=== PATIENT | female | born 1985 | race Caucasian/White ===

== ENCOUNTER 2020-01-10 13:11 | Outpatient (RCR) | payer OTHER, SELFPAY | END 2020-01-16 23:59 | LOC: NS 13:11 | PROVIDERS: Visit Provider Student in an Organized Health Care Education/Training Program | DX: Z71.3 Dietary counseling and surveillance (principal); E66.9 Obesity, unspecified; Z68.30 Body mass index [BMI] 30.0-30.9, adult | CPT/HCPCS: 97802 ==

== ENCOUNTER 2020-01-25 13:56 | Outpatient (RCR) | payer OTHER, SELFPAY | END 2020-02-16 23:59 | LOC: NS 13:56 | PROVIDERS: Visit Provider Student in an Organized Health Care Education/Training Program | DX: Z71.3 Dietary counseling and surveillance (principal); E66.9 Obesity, unspecified; Z68.30 Body mass index [BMI] 30.0-30.9, adult | CPT/HCPCS: 97803 ==

== ENCOUNTER 2020-03-12 13:00 | Outpatient (RCR) | payer OTHER, SELFPAY | END 2020-03-18 23:59 | LOC: NS 13:00 | PROVIDERS: Visit Provider Student in an Organized Health Care Education/Training Program | DX: Z71.3 Dietary counseling and surveillance (principal); E66.9 Obesity, unspecified; Z68.30 Body mass index [BMI] 30.0-30.9, adult | CPT/HCPCS: 97803 ==

== ENCOUNTER 2020-04-11 13:00 | Outpatient (RCR) | payer OTHER, SELFPAY | END 2020-04-15 23:59 | LOC: NS 13:00 | PROVIDERS: Visit Provider Student in an Organized Health Care Education/Training Program | DX: Z71.3 Dietary counseling and surveillance (principal); E66.9 Obesity, unspecified; Z68.30 Body mass index [BMI] 30.0-30.9, adult | CPT/HCPCS: 97803 ==

== ENCOUNTER 2020-04-26 11:55 | Outpatient (RCR) | payer OTHER, SELFPAY | END 2020-05-16 23:59 | LOC: NS 11:55 | PROVIDERS: Visit Provider Student in an Organized Health Care Education/Training Program | DX: Z71.3 Dietary counseling and surveillance (principal); E66.9 Obesity, unspecified; Z68.30 Body mass index [BMI] 30.0-30.9, adult | CPT/HCPCS: 97803 ==

== ENCOUNTER 2020-06-05 11:00 | Outpatient (RCR) | payer OTHER, SELFPAY | END 2020-06-15 23:59 | LOC: NS 11:00 | PROVIDERS: Visit Provider Student in an Organized Health Care Education/Training Program | DX: Z71.3 Dietary counseling and surveillance (principal); E66.9 Obesity, unspecified; Z68.30 Body mass index [BMI] 30.0-30.9, adult | CPT/HCPCS: 97803 ==

== ENCOUNTER 2020-07-31 14:12 | Outpatient (RCR) | payer OTHER, SELFPAY | END 2020-07-31 23:59 | disposition home or self-care (01) | LOC: NS 14:12 | PROVIDERS: Visit Provider Student in an Organized Health Care Education/Training Program | DX: Z71.3 Dietary counseling and surveillance (principal); E66.9 Obesity, unspecified; Z68.30 Body mass index [BMI] 30.0-30.9, adult | CPT/HCPCS: 97803 ==

== ENCOUNTER 2024-08-10 23:02 | Emergency (ER) | payer MEDICAID, SELFPAY ==
[2024-08-10 23:02] VITALS: BP 135/67; PULSE 81; RESP 16; TEMP 36.5; O2SAT 100; BMI 31.5
[2024-08-10 23:16] LABS: Absolute Lymphocyte Count 4.49 X10^3/uL (0.83-4.51); Absolute Neutrophil Count 5.6 X10^3/uL (2.0-7.7); Basophil# 0.09 X10^3/uL; Basophil% 0.8 % (0-1); Eosinophil# 0.07 X10^3/uL; Eosinophils% 0.6 % (0-5); Hemoglobin 12.7 g/dL (12.0-15.0); Lymphocyte # 4.49 X10^3/ul (0.83-4.51); Lymphocyte % 40.2 % (19-41); Mean Corp Hgb Conc 33.4 g/dL (32-36); Mean Corpuscular Hgb 29.3 pg (27.0-32.0); Mean Corpuscular Volume 87.8 fL (81-99); Mean Platelet Vol. 8.8 fl (6.2-12.0); Monocyte# 0.94 X10^3/uL; Monocyte% 8.4 % (0-10); NRBC Flagged by Analyzer 0 % (0-5); Neutrophil # 5.55 X10^3/uL (2.7-7.7); Neutrophil % 49.7 % (47-70); Platelet Count 340 K/mm3 (150-450); RBC Distribution Width CV 14.2 % (11.6-14.6); RBC Distribution Width SD 45.5 fl (35.1-43.9); Red Blood Count 4.33 M/mm3 (4.2-5.4); White Blood Count 11.2 K/mm3 (4.4-11.0)
[2024-08-10 23:35] LABS: Internal QC Validated? YES +Cl - CLEAR BKGD; Pregnancy, Serum, hCG Quali. NEGATIVE Negative
[2024-08-10 23:35] LABS: Mucous, Urine 0 SEEN /hpf (<or=2+); Squamous Epithelial Cells - UA 0 SEEN /hpf (5-10); White Blood Cells 0 SEEN /hpf (0-5)
[2024-08-10 23:37] LABS: Color, Urine Yellow (Yellow); Glucose, Dipstick Normal (Normal); Ketone-Dipstick Negative (Negative); Leukocyte Esterase-Dipstick Negative /ul (Negative); Nitrite-Dipstick Negative (Negative); Occult Blood-Urine 250 /ul (Negative); Protein-Dipstick 30 mg/dl (Negative); Urine Bilirubin Dipstick Negative (Negative); Urine Clarity Clear (Clear); Urine Urobilinogen Normal (Normal)
[2024-08-10 23:38] LABS: ALB/GLOB Ratio 1.3 RATIO (0.9-2.4); AST(SGOT) 18 U/L (<=31); Alanine Aminotransfer ALT/SGPT 12 U/L (<=34); Albumin, Serum 3.8 g/dL (3.5-5.0); Alkaline Phosphatase 71 U/L (35-104); Anion Gap 14 (5-15); BUN 16 mg/dL (4-19); BUN/Creat Ratio 17.3 RATIO (10-20); Calcium,Total 8.9 mg/dL (7.6-11.0); Carbon Dioxide 20.9 mmol/L (21.0-32.0); Chloride 105 mmol/L (98-108); Creatinine, Serum 0.94 mg/dL (0.70-1.20); EST Glomerular Filtration Rate 79 (>60); Estimated Creatinine Clearance 89.17 ml/min (50-250); Glucose 89 mg/dL (70-99); Potassium 3.8 mmol/L (3.3-5.1); Protein, Total 6.9 g/dL (5.9-8.4); Sodium Level 140 mmol/L (133-145); Total Bilirubin 0.23 mg/dL (0.00-1.30)
[2024-08-10 23:44] LABS: Bacteria 1+ /hpf (None Seen); Red Blood Cells-Urine 25-50 SEEN /hpf (0-5)
--- NOTE | 2024-08-10 23:49 | CT_ITS ---
PROCEDURE: ABDOMEN/PELVIS WITHOUT CONT 08/10/2024 REASON FOR EXAM: RIGHT FLANK PAIN TECHNIQUE: ABDOMEN/PELVIS WITHOUT CONT Noncontrast technique limits evaluation of the abdominal and pelvic viscera. Coronal and Sagittal reconstruction series were provided. One or more dose reduction techniques were used (e.g., Automated exposure control, adjustment of the mA and/or kV according to patient size, use of iterative reconstruction technique). RADIATION DOSE SUMMARY: CTDlvol: 11.01 mGy DLP: 627 mGycm COMPARISON: None. FINDINGS: Mild diffuse thickening of the bladder suggestive of mild cystitis. The visualized lung bases are unremarkable. Normal unenhanced liver. Normal gallbladder and extrahepatic biliary system. Normal unenhanced spleen. Normal pancreas. Normal bilateral adrenal glands. Normal size of the right kidney. There is no right renal mass. There are no right renal calculi. There is no right hydronephrosis. Normal visualized right ureter. Normal size of the left kidney. There is no left renal mass. There are no left renal calculi. There is no left hydronephrosis. Normal visualized left ureter. Normal visualized stomach. Normal small intestine. Normal colon. The appendix is visualized and appears normal. There is no demonstrated peritoneal fluid. Normal abdominal aorta. Normal inferior vena cava. Normal retroperitoneum. There is no pelvic mass lesion or lymphadenopathy. There is no pelvic fluid. Normal abdominal wall. Normal osseous structures. CT/Abdomen/Pelvis without Cont IMPRESSION: Mild diffuse thickening of the bladder suggestive of mild cystitis. Reading Location[facility] [id number]
[2024-08-11] MEDS: 0.9% Normal Saline (1000mL) 1,000 ML 999 ML IV (00:12)
[2024-08-11 00:14] VITALS: BP 118/70; PULSE 66; RESP 16; O2SAT 100
--- OUTSIDE RECORDS SUMMARY | 2024-08-11 00:34 | XMS RPT_ITS | CCD ---
Author Organization [facility] Care Team Providers Care Laboratory Tech Name Role Phone Ketan Moffett DO Primary Care Provider [phone] Ketan Moffett DO Primary Care Provider Carrillo MATCH MARKER.Colleen ADEN Unavailable Evita MATCH MARKER.Narciso ADEN Unavailable ABEL CHOU Attending Unavailable KETAN MOFFETT Primary Care Unavailable KETAN MOFFETT Primary Care Unavailable KETAN MOFFETT Attending Unavailable KETAN MOFFETT Primary Care Unavailable KETNA MOFFETT Referring Unavailable KETAN MOFFETT Primary Care Unavailable KETAN MOFFETT Attending Unavailable KETAN MOFFETT Attending Unavailable KETAN MOFFETT Primary Care Unavailable ABEL CHOU Referring Unavailable KETAN MOFFETT Primary Care Unavailable KETAN MOFFETT Primary Care Unavailable ABEL CHOU Referring Unavailable KETAN MOFFETT Primary Care Unavailable SHARRON ROSARIO Attending Unavailable KETAN MOFFETT Referring Unavailable KETAN MOFFETT Primary Care Unavailable KETAN MOFFETT Attending Unavailable Medications Current Medications Medication Drug Class(es) Dates Sig (Normalized) Sig (Original) cholecalciferol 0.05 mg oral capsule (16 sources) Vitamin D Start: 10-23-2023 End: 05-05-2024 take 1 capsule by mouth once daily Cholecalciferol, Vitamin D3, 50 mcg (2,000 unit) cap Indications: Headache, worsening Take 1 capsule by mouth once daily. 90 capsule 1 05/05/2024 Active Ethinyl Estradiol / Levonorgestrel (20 sources) Progestin, Estrogen, Progestin-containi ng Intrauterine Device Start: 04-01-2024 take 1 tablet by mouth once daily L-Norgest and E Estradiol-E Estrad (SEASONIQUE) 0.15 mg-30 mcg (84)/10 mcg (7) Take 1 tablet by mouth once daily. 84 tablet 1 04/01/2024 Active Start: 12-03-2023 End: 03-31-2024 take 1 tablet by mouth once daily L-Norgest and E Estradiol-E Estrad (SEASONIQUE) 0.15 mg-30 mcg (84)/10 mcg (7) Take 1 tablet by mouth once daily. 84 tablet 12/03/2023 03/31/2024 Discontinued Start: 12-03-2023 take 1 tablet by lauro th once daily L-Norgest and E Estradiol-E Estrad (SEASONIQUE) 0.15 mg-30 mcg (84)/10 mcg (7) Take 1 tablet by mouth once daily. 84 tablet 12/03/2023 Active Start: 10-15-2023 End: 12-03-2023 take 1 tablet by mouth once daily L-Norgest and E Estradiol-E Estrad (SEASONIQUE) 0.15 mg-30 mcg (84)/10 mcg (7) Take 1 tablet by mouth once daily. 84 tablet 10/15/2023 12/03/2023 Discontinued Start: 10-15-2023 take 1 tablet by lauro th once daily L-Norgest and E Estradiol-E Estrad (SEASONIQUE) 0.15 mg-30 mcg (84)/10 mcg (7) Take 1 tablet by mouth once daily. 84 tablet 10/15/2023 Active Start: 10-08-2022 End: 10-15-2023 take 1 tablet by mouth once daily L-Norgest and E Estradiol-E Estrad (SEASONIQUE) 0.15 mg-30 mcg (84)/10 mcg (7) Take 1 tablet by mouth once daily. 84 tablet 3 10/08/2022 10/15/2023 Discontinued Start: 10-08-2022 take 1 tablet by lauro th once daily L-Norgest and E Estradiol-E Estrad (SEASONIQUE) 0.15 mg-30 mcg (84)/10 mcg (7) Take 1 tablet by mouth once daily. 84 tablet 3 10/08/2022 Active Start: 10-08-2021 End: 10-08-2022 take 1 tablet by mouth once daily L-Norgest and E Estradiol-E Estrad (SEASONIQUE) 0.15 mg-30 mcg (84)/10 mcg (7) Take 1 tablet by mouth once daily. 84 tablet 3 10/08/2021 10/08/2022 Discontinued Start: 10-08-2021 take 1 tablet by lauro th once daily L-Norgest and E Estradiol-E Estrad (SEASONIQUE) 0.15 mg-30 mcg (84)/10 mcg (7) Take 1 tablet by mouth once daily. 84 tablet 3 10/08/2021 Active Comment on above: Take 1 tablet by lauro th once daily. ferrous sulfate 140 mg extended release oral tablet (14 sources) Start: 10-08-19 End: 12-03-19 take 1 tablet by mouth once daily at mealtime ferrous sulfate (SLOW FE) 140 mg (45 mg iron) TbER Indications: Iron deficiency Take 1 tablet by mouth once daily. With a meal 30 tablet 11 10/07/2022 12/03/2023 Discontinued Comment on above: Take 1 tablet by lauro th once daily. With a meal levothyroxine sodium 0.05 mg oral tablet (20 sources) l-Thyroxine Start: 02-17-19 End: 03-09-19 take 1 tablet by mouth once daily for thyroid dysfunction levothyroxine (LEVOXYL) 50 mcg tablet Indications: Subclinical hypothyroidism Take 1 tablet by mouth once daily. Take on empty stomach. For Thyroid 90 tablet 3 03/09/2024 Active Start: 12-11-2022 take 1 tablet by lauro th once daily for thyroid dysfunction levothyroxine (LEVOXYL) 50 mcg tablet Indications: Subclinical hypothyroidism Take 1 tablet by mouth once daily. Take on empty stomach. For Thyroid 30 tablet 1 12/11/2022 Active Start: 10-24-2022 End: 12-11-2022 take 1 tablet by mouth once daily for thyroid dysfunction levothyroxine (LEVOXYL) 25 mcg tablet Indications: Subclinical hypothyroidism Take 1 tablet by mouth once daily. Take on empty stomach. For Thyroid 30 tablet 1 10/24/2022 12/11/2022 Discontinued Comment on above: Take 1 tablet by lauro th once daily. Take on empty stomach. For Thyroid magnesium gluconate 500 mg oral tablet (16 sources) Start: 4 End: 03-20-202 5 take 1 tablet by mouth once daily Magnesium Gluconate 27.5 mg magne- sium (500 mg) tab Indications: Headache, worsening Take 1 tablet by mouth once daily. 90 tablet 1 05/05/2024 Active proparacaine hydrochloride 5 mg/ml ophthalmic solution (2 sources) Local Anesthetic Start: End: proparacaine 0.5 % 1 Drop (ALCAINE) Start: 12-15-2023 End: 12-15-2023 1 Drop, BOTH EYES, DIRECT ED, Starting on Thu12/15/23 at 1000, Until Thu12/15/23 at 2159, Administer for pneumo tonometry, tonopen tonometry, or pachymetry. In the event of a proparacaine shortage, administer tetracaine 0.5% ophthalmic drops 1 drop in the left eye as directed for pneumo tonometry, tonopen tonometry, or pachymetry riboflavin 100 mg oral tablet (15 sources) Start: 10-23-2023 take 4 tablets by mouth once daily riboflavin, vitamin B2, (VITAMIN B2) 100 mg tab Indications: Headache, worsening Take 4 tablets by mouth once daily. 120 tablet 11 10/23/2023 Active rizatriptan 10 mg disintegrating oral tablet (2 sources) Serotonin-1b and Serotonin-1d Receptor Agonist Start: 07-04-2024 take 1 tablet by mouth every two hours as needed for headache rizatriptan (MAXALT-NANOTECHNOLOGY ENGINEERING TECHNOLOGIST) 10 mg disintegrating tablet Take 1 tablet by mouth as needed for migraine headache (see administration instructions). at onset of headache. May repeat after 2 hours. Do not exceed 30 mg per day. 12 tablet 3 07/04/2024 Active sertraline 50 mg oral tablet (20 sources) Serotonin Reuptake Inhibitor Start: 07-10-2023 End: 07-04-2024 take 1 tablet by mouth once daily at dinner sertraline (ZOLOFT) 50 mg tablet Indications: Situational depression , Situational anxiety Take 1 tablet by mouth daily with dinner. 90 tablet 1 07/04/2024 Active Start: 04-13-2023 End: 12-03-2023 take 1 tablet by mouth once daily sertraline (ZOLOFT) 100 mg tablet Take 1 tablet by mouth once daily. 90 tablet 1 04/13/2023 12/03/2023 Discontinued Start: 06-30-2022 End: 07-08-2023 take 1 tablet by mouth once daily at dinner sertraline (ZOLOFT) 50 mg tablet Indications: Situational depression , Situational anxiety Take 1 tablet by mouth daily with dinner. 90 tablet 1 12/31/2022 07/08/2023 Discontinued Start: 02-19-2022 take 1 tablet by lauro th once daily at dinner sertraline (ZOLOFT) 50 mg tablet Indications: Situational depression , Situational anxiety Take 1 tablet by mouth daily with dinner. 90 tablet 1 02/19/2022 Active Comment on above: Take 1 tablet by lauro th daily with dinner. Take 1 tablet by lauro th once daily. SUMAtriptan 20 mg/actuat nasal spray (2 sources) Serotonin-1b and Serotonin-1d Receptor Agonist Start: 07-04-2024 SUMAtriptan (IMITREX) 20 mg/actuation nasal spray Use 1 spray in the nose as needed for migraine headache (see administration instructions). May repeat dose after 2 hours if needed. Maximum daily dose is 40 mg per day. 1 each 2 07/04/2024 Active tropicamide 10 mg/ml ophthalmic solution (2 sources) Anticholinergic Start: 12-15-2023 End: 12-15-2023 tropicamide 1 % 1 Drop (MYDRIACYL) Start: 12-15-2023 End: 12-15-2023 1 Drop, BOTH EYES, DIRECT ED, Starting on Thu12/15/23 at 1000, Until Thu12/15/23 at 2159, Administer for dilation Completed/Discontinued Medications Medication Drug Class(es) Dates Sig (Normalized) Sig (Original) acetaminophen 500 mg oral tablet (4 sources) Start: 06-05-2021 End: 10-08-2021 take 2 tablets by mouth every six hours as needed acetaminophen (TYLENOL EXTRA STRENGTH) 500 mg tablet Take 2 tablets by mouth every 6 hours as needed for pain. 45 tablet 0 06/05/2021 10/08/2021 Discontinued (Other) Comment on above: Take 2 tablets by mo uth every 6 hours as needed for pain. amphetamine aspartate 2.5 mg / amphetamine sulfate 2.5 mg / dextroamphetamine saccharate 2.5 mg / dextroamphetamine sulfate 2.5 mg oral tablet (9 sources) Central Nervous System Stimulant Start: 07-22-2023 End: 10-23-2023 take 1 tablet by mouth twice daily dextroamphetamine- amphetamine (ADDERALL) 10 mg tablet Indications: Attention deficit disorder (ADD) without hyperactivity Take 1-2 tablets by mouth two times a day for 30 days. 60 tablet 07/22/2023 10/23/2023 Discontinued Start: 04-13-2023 End: 07-22-2023 take 1 capsule by mouth once daily in the morning amphetamine-dextroamphetamine XR (ADDERA LL XR) 20 mg capsule Indications: Impaired concentration Take 1 capsule by mouth once daily for 30 days. In the morning 30 capsule 0 04/13/2023 07/22/2023 Discontinued Start: 01-21-2023 End: 04-13-2023 take 1 capsule by mouth once daily in the morning as needed amphetamine-dextroamphetamine XR (ADDERA LL XR) 10 mg capsule Indications: Hypersomnolence , Fatigue, unspecified type , Impaired concentration Take 1 capsule by mouth once daily for 14 days. In the morning as needed for focus/concentration 14 capsule 0 01/21/2023 04/13/2023 Discontinued Comment on above: Take 1 capsule by [facility] once daily for 14 days. In the morning as needed for focus/concentration Take 1 capsule by [facility] once daily for 30 days. In the morning Ethinyl Estradiol / norgestimate (1 source) Progestin, Estrogen Start : 06-12 End: 02-05 take 1 tablet by mouth once daily Norgestimate-Ethinyl Estradiol 0.18/0.215/0.25 mg-35 mcg (28) Take 1 tablet by mouth once daily. 84 tablet 3 06/12/2020 02/05/2021 Discontinued Comment on above: Take 1 tablet by [facility] once daily. fluticasone propionate 0.05 mg/actuat metered dose nasal spray (12 sources) Corticosteroid Start : 06-20 End: 05-06 take 2 spray(s) by mouth once daily fluticasone (FLONASE) 50 mcg/actuation nasal spray Indications: URI with cough and congestion Use 2 Sprays in each nostril once daily. Rinse mouth after use. 1 Bottle 0 06/20/2018 05/06/2022 Discontinued Comment on above: Use 2 Sprays in each nostril once daily. Rinse mouth after use. ibuprofen 600 mg oral tablet (10 sources) Nonsteroidal Anti-inflammatory Drug Start : 06-05 End: 10-08 take 1 tablet by mouth every eight hours as needed ibuprofen (MOTRIN) 600 mg tablet Take 1 tablet by mouth every 8 hours as needed for pain. 45 tablet 0 06/05/2021 10/08/2022 Discontinued (Other) Comment on above: Take 1 tablet by lauro th every 8 hours as needed for pain. lisdexamfetamine dimesylate 30 mg oral capsule (20 sources) Central Nervous System Stimulant Start : 10-22 End: 10-02 take 1 capsule by mouth once daily in the morning lisdexamfetamine (VYVANSE) 30 mg capsule Indications: Attention deficit disorder (ADD) without hyperactivity Take 1 capsule by mouth once daily for 30 days. In the morning 30 capsule 07/04/2024 07/04/2024 Discontinued naproxen 375 mg oral tablet (8 sources) Nonsteroidal Anti-inflammatory Drug Start : 03-04 End: 10-08 take 1 tablet by mouth every eight hours as needed naproxen (NAPROSYN) 375 mg tablet Take 1 tablet by mouth three times daily as needed (pain). 60 tablet 0 03/04/2021 10/08/2021 Discontinued Comment on above: Take 1 tablet by lauro th three times daily as needed (pain). norethindrone acetate 5 mg oral tablet (8 sources) Start : 07-02 End: 10-08 take 1 tablet by mouth once daily norethindrone (AYGESTIN) 5 mg tablet Indications: Pelvic pain in female , Hematosalpinx Take 1 tablet by mouth once daily. 30 tablet 2 07/02/2021 10/08/2021 Discontinued (Other) Start: 03-28-2021 take 1 tablet by lauro th once daily norethindrone (AYGESTIN) 5 mg tablet Indications: Pelvic pain in female , Hematosalpinx Take 1 tablet by mouth once daily. 30 tablet 2 03/28/2021 Active Comment on above: Take 1 tablet by lauro th once daily. oxyCODONE hydrochloride 5 mg oral tablet (4 sources) Opioid Agonist Start: 2 End: 2 take 1 tablet by mouth every eight hours as needed for pain oxyCODONE IR (ROXICODONE) 5 mg immediate release tablet Indications: Post-op pain Take 1 tablet by mouth every 8 hours as needed for pain. 4 tablet 0 06/05/2021 10/08/2021 Discontinued (Other) Comment on above: Take 1 tablet by lauro th every 8 hours as needed for pain. sennosides, senior living 8.6 mg oral tablet (4 sources) Start: 2 End: 2 take 1 tablet by mouth twice daily senna (SENNA) 8.6 mg tab Take 1 tablet by mouth twice daily. 28 tablet 0 06/05/2021 10/08/2021 Discontinued (Other) Comment on above: Take 1 tablet by lauro th twice daily. Problems Active Problems Problem Classification Problem Date Documented Date Episodic/Chronic Abdominal pain (5 sources) Pain in female pelvis; Translations: [Pelvic and perineal pain] Episodic Adjustment disorders (20 sources) Reactive depression (situational); Translations: [Adjustment disorder with depressed mood] Onset: 07-22-2017 07-22-2017 Chronic Administrative/social admission (1 source) Education and/or schooling finding; Translations: [Problems related to education and literacy, unspecified] Episodic Anxiety disorders (20 sources) Anxiety; Translations: [Other specified anxiety disorders] Onset: 02-19-2022 02-19-2022 Chronic Contraceptive and procreative management (1 source) Oral contraception; Translations: [Encounter for surveillance of contraceptive pills] 10-08-2022 Episodic Diabetes mellitus without complication (1 source) Hyperglycemia; Translations: [Hyperglycemia, unspecified] 07-04-2024 Episodic Diseases of white blood cells (1 source) Lymphocytosis; Translations: [Lymphocytosis (symptomatic)] 10-07-2022 Chronic Disorders of lipid metabolism (20 sources) Mixed hyperlipidemia; Translations: [Mixed hyperlipidemia] Onset: 01-22-2018 01-22-2018 Chronic Disorders usually diagnosed in infancy, childhood, or adolescence (20 sources) Attention deficit hyperactivity disorder, predominantly inattentive type; Translations: [Other specified behavioral and emotional disorders with onset usually occurring in childhood and adolescence] Onset: 10-23-2023 07-22-2023 Chronic Headache; including migraine (20 sources) Migraine; Translations: [Migraine, unspecified, not intractable, without status migrainosus] Onset: 07-22-2017 07-22-2017 Chronic Headache; including migraine (20 sources) Headache; Translations: [Headache, worsening] Onset: 10-23-2023 10-23-2023 Episodic Headache; including migraine (2 sources) Headache; including migraine; Translations: [Headache, worsening] Onset: 10-23-2023 Immunizations and screening for infectious disease (7 sources) Requires vaccination; Translations: [Encounter for immunization] Episodic Inflammatory diseases of female pelvic organs (1 source) Hydrosalpinx; Translations: [Chronic salpingitis] 01-31-2021 Chronic Malaise and fatigue (20 sources) Fatigue; Translations: [Other fatigue] Onset: 10-07-2022 09-19-2022 Episodic Menopausal disorders (1 source) Perimenopausal state; Translations: [Menopausal and female climacteric states] 07-04-2024 Chronic Miscellaneous mental health disorders (16 sources) Chronic insomnia; Translations: [Psychophysiologic insomnia] Onset: 10-23-2023 10-23-2023 Chronic Nutritional deficiencies (20 sources) Vitamin D deficiency; Translations: [Vitamin D deficiency, unspecified] Onset: 04-21-2023 04-21-2023 Chronic Nutritional deficiencies (20 sources) Iron deficiency; Translations: [Iron deficiency] Onset: 10-07-2022 10-07-2022 Episodic Other female genital disorders (3 sources) Hematosalpinx; Translations: [Hematosalpinx] Episodic Other hereditary and degenerative nervous system conditions (1 source) Restless legs; Translations: [Restless legs syndrome] 09-19-2022 Chronic Other nervous system disorders (1 source) Disturbance of attention; Translations: [Attention and concentration deficit] Chronic Other nervous system disorders (20 sources) Attention and concentration deficit; Translations: [Attention or concentration deficit] Onset: 01-22-2023 01-22-2023 Chronic Other nutritional; endocrine; and metabolic disorders (14 sources) Obese class I; Translations: [Obesity, Class I, BMI 30-34.9] Onset: 12-03-2023 12-03-2023 Chronic Other screening for suspected conditions (not mental disorders or infectious disease) (20 sources) Evaluation finding; Translations: [Encounter for test, result negative] Onset: 10-07-2022 Episodic Residual codes; unclassified (20 sources) Hypersomnia; Translations: [Hypersomnia, unspecified] Onset: 01-22-2023 01-21-2023 Chronic Residual codes; unclassified (2 sources) Postoperative state; Translations: [Other specified postprocedural states] Episodic Residual codes; unclassified (1 source) Difficulty sleeping ; Translations: [Sleep disorder, unspecified] 09-19-2022 Episodic Thyroid disorders (20 sources) Subclinical hypothyroidism; Translations: [Other specified hypothyroidism] Onset: 10-17-2022 10-24-2022 Chronic Past or Other Problems Problem Classification Problem Date Documented Da te Episodic/Chronic Conditions associated with dizziness or vertigo (20 sources) Lightheadedness; Translations: [Dizziness and giddiness] Onset: 07-22-2017 07-22-2017 Episodic Other ear and sense organ disorders (20 sources) Tinnitus of right ear; Translations: [Tinnitus, right ear] Onset: 01-22-2018 01-22-2018 Episodic Other lower respiratory disease (20 sources) Snoring; Translations: [Snoring] Onset: 01-22-2023 01-22-2023 Episodic Other skin disorders (20 sources) Xeroderma; Translations: [Xerosis cutis] Onset: 10-07-2022 10-07-2022 Episodic Other skin disorders (20 sources) Trachyonychia; Translations: [Nail dystrophy] Onset: 10-07-2022 10-07-2022 Episodic Residual codes; unclassified (20 sources) Intolerant of cold; Translations: [Other general symptoms and signs] Onset: 10-07-2022 10-07-2022 Episodic Residual codes; unclassified (20 sources) Sleep disorder; Translations: [Sleep disorder, unspecified] Onset: 10-07-2022 10-07-2022 Episodic Results Test Name Value Interpretation Reference Range Facility [facility] 07-04-2024 CNOV Office Visit (FAMPWS ) ONEYDA MAO ([id number]) 1985 F Date Time Provider Department 07/04/24 3:00 PM KETAN MOFFETT During your visit today, we recorded the following information about you: Temperature Pulse Respiration Blood pressure 98 degrees 80/minute 12/minute 104/70 Weight Last Period 84.8 kg 04/11/24 Ketan Moffett, DO 07/04/2024 5:20 PM Signed CC: Oneyda Mao is a 39 year old female who presents to the office for follow up HPI: Headaches, 2-3 days a week, up to 6-7/10 on pain scale. These are improved but not resolved. She doesn't have a known history of vision deficits but she is concerned about this as a potential trigger to he headache symptoms. She thinks there are hormonal triggers to her symptoms- unsure what medication she can take to help treat the migraine ADD. 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 Taking zoloft as prescribed. Subclinical hypothyroidism PAST MEDICAL HISTORY Diagnosis Date Genital warts Hypercholesteremia 03/19/2015 LGSIL (low grade squamous intraepithelial dysplasia) 02/17/2008 Subclinical hypothyroidism 10/2022 PAST SURGICAL HISTORY Procedure Laterality Date PAST SURGICAL HISTORY OF 2007? laser treatment to genital warts PAST SURGICAL HISTORY OF 06/05/2021 laparoscopic excision fo endometriosis, right ureterlysis VAGINOSCOPY 02/17/2008 Current Outpatient Medications Medication Sig sertraline (ZOLOFT) 50 mg tablet Take 1 tablet by mouth daily with dinner. lisdexamfetamine (VYVANSE) 30 mg capsule Take 1 capsule by mouth once daily for 30 days. [START ON 09/02/2024] lisdexamfetamine (VYVANSE) 30 mg capsule Take 1 capsule by mouth once daily for 30 days. Patient should start on September 02, 2024. rizatriptan (MAXALT-NANOTECHNOLOGY ENGINEERING TECHNOLOGIST) 10 mg disintegrating tablet Take 1 tablet by mouth as needed for migraine headache (see administration instructions). at onset of headache. May repeat after 2 hours. Do not exceed 30 mg per day. SUMAtriptan (IMITREX) 20 mg/actuation nasal spray Use 1 spray in the nose as needed for migraine headache (see administration instructions). May repeat dose after 2 hours if needed. Maximum daily dose is 40 mg per day. [START ON 08/04/2024] lisdexamfetamine (VYVANSE) 30 mg capsule Take 1 capsule by mouth once daily for 30 days. In the morning Patient should start on August 04, 2024. Magnesium Gluconate 27.5 mg magne- sium (500 mg) tab Take 1 tablet by mouth once daily. Cholecalciferol, Vitamin D3, 50 mcg (2,000 unit) cap Take 1 capsule by mouth once daily. L-Norgest and E Estradiol-E Estrad (SEASONIQUE) 0.15 mg-30 mcg (84)/10 mcg (7) Take 1 tablet by mouth once daily. levothyroxine (LEVOXYL) 50 mcg tablet Take 1 tablet by mouth once daily. Take on empty stomach. For Thyroid riboflavin, vitamin B2, (VITAMIN B2) 100 mg tab Take 4 tablets by mouth once daily. No current facility-administered medications for this visit. ALLERGIES No Known Allergies Social History Tobacco Use Smoking status: Never Smokeless tobacco: Never Vaping Use Vaping status: Never Used Substance Use Topics Alcohol use: Yes Comment: seldom Drug use: Never ROS: See HPI PE: BP 104/70 Pulse 80 Temp (Src) 98 (Left Tympanic) Resp 12 Wt 187 lb (84.8kg) LMP 04/11/2024 Gen: AANDOX3, NAD, non-toxic appearing HEENT: PERRLA, EOMs intact b/l, nares without drainage, pharynx without erythema, exudate, lesions, or drainage. Uvula midline. Neck: No LAD, no thyromegaly, no meningismus. CV: RRR, no murmur Lungs: CTA b/l, no wheezing Skin: No rashes, lesions, or wounds on exposed skin. Non focal neurologic examination No edema, normal pulses PDMP website checked and validated. All prescriptions have been APPROPRIATELY filled. No suspicious activity was identified. 07/04/2024 by Ketan Moffett DO ASSESSMENT/PLAN: 1. 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 Situational depression - ICD9: 309.0, ICD10: F43.21 rx refilled Symptoms are stable and well controlled. - SERTRALINE 50 MG TABLET 3. Situational anxiety - ICD9: 300.09, ICD10: F41.8 rx refilled Symptoms are stable and well controlled. - SERTRALINE 50 MG TABLET 4. Attention deficit disorder (ADD) without hyperactivity - ICD9: 314.00, ICD10: F98.8 Stable, rx refilled. - LISDEXAMFETAMINE 30 MG CAPSULE - LISDEXAMFETAMINE 30 MG CAPSULE - LISDEXAMFETAMINE 30 MG CAPSULE 5. Other migraine without status migrainosus, not intractable - ICD9: 346.80, ICD10: G43.809 Add on prn triptan for migraine headaches Co (more content not included)... Normal [facility] [employer] LTon 05-10 [employer] [facility] * * *Final Report* * * DATE OF EXAM: May 10 2024 8:49AM [id number] - [employer] [facility] / PROCEDURE REASON: Abnormal mammogram * * * * Physician Interpretation * * * * [facility] [place] [address] #[id number] - [employer] [facility] HISTORY: 39 year-old patient seen for diagnostic evaluation of the finding(s) described on prior mammogram in the left breast. Patient states no personal history of breast cancer. COMPARISON STUDIES: The present examination has been compared to a prior imaging study dated 03/17/2024 (mammogram). ULTRASOUND TECHNIQUE: Targeted ultrasound of the indicated area was performed. Ott scale images were saved. ULTRASOUND FINDINGS: There is an oval parallel lesion with circumscribed margins measuring 1.0 x 1.0 x 0.3 cm cm in the left breast at 1 o'clock, 5 cm from the nipple. Internal echotexture is hypoechoic. Color flow imaging demonstrates vascularity is not present. This correlates with myelography findings. Differential considerations include fibroadenoma, commentated cyst, and fibrocystic change. IMPRESSION: The 1 cm oval parallel lesion in the left breast at 1 o'clock, 5 cm from the nipple is probably benign. Follow-up with diagnostic mammogram and ultrasound is recommended in 6 months. BI-RADS Category 3: Probably Benign Interpreting Radiologist: Esequiel Villeda M.D. Electronically signed on: 05/10/2024 Plant Taxonomy Teacher: KHADAR Transcribe Date/Time: May 10 2024 8:34A Dictated by : ESEQUIEL VILLEDA MD This examination was interpreted and the report reviewed and electronically signed by: ESEQUIEL VILLEDA MD on May 10 2024 8:57AM EST [id number] Normal [facility] US Breast - left limitedon 0 05-10-2024 IMPRESSION: The 1 cm oval parallel lesion in the left breast at 1 o'clock, 5 cm from the nipple is probably benign. Follow-up with diagnostic mammogram and ultrasound is recommended in 6 months. BI-RADS Category 3: Probably Benign Interpreting Radiologist: Esequiel Villeda M.D. Electronically signed on: 05/10/2024 Plant Taxonomy Teacher: KHADAR Transcribe Date/Time: May 10 2024 8:34A Dictated by : ESEQUIEL VILLEDA MD This examination was interpreted and the report reviewed and electronically signed by: ESEQUIEL VILLEDA MD on May 10 2024 8:57AM EST DIVISION OF RADIOLOGY * * *Final Report* * * DATE OF EXAM: May 10 2024 8:49AM [facility] [[email or web address]] 0593 - [facility] [employer] BREAST LTD LT / PROCEDURE REASON: Abnormal mammogram * * * * Physician Interpretation * * * * [facility] [place] [address] #[id number] - [facility] [employer] BREAST Intermolecular LT HISTORY: 39 year-old patient seen for diagnostic evaluation of the finding(s) described on prior mammogram in the left breast. Patient states no personal history of breast cancer. COMPARISON STUDIES: The present examination has been compared to a prior imaging study dated 03/17/2024 (mammogram). ULTRASOUND TECHNIQUE: Targeted ultrasound of the indicated area was performed. Ott scale images were saved. ULTRASOUND FINDINGS: There is an oval parallel lesion with circumscribed margins measuring 1.0 x 1.0 x 0.3 cm cm in the left breast at 1 o'clock, 5 cm from the nipple. Internal echotexture is hypoechoic. Color flow imaging demonstrates vascularity is not present. This correlates with myelography findings. Differential considerations include fibroadenoma, commentated cyst, and fibrocystic change. DIVISION OF RADIOLOGY Provider, [facility]24 * * *Final Report* * * DATE OF EXAM: May 10 2024 8:49AM [facility] [[email or web address]] 0593 - [facility] [employer] BREAST Intermolecular LT / PROCEDURE REASON: Abnormal mammogram * * * * Physician Interpretation * * * * [place] [address] #[id number] - [employer] BREAST Intermolecular LT HISTORY: 39 year-old patient seen for diagnostic evaluation of the finding(s) described on prior mammogram in the left breast. Patient states no personal history of breast cancer. COMPARISON STUDIES: The present examination has been compared to a prior imaging study dated 03/17/2024 (mammogram). ULTRASOUND TECHNIQUE: Targeted ultrasound of the indicated area was performed. Ott scale images were saved. ULTRASOUND FINDINGS: There is an oval parallel lesion with circumscribed margins measuring 1.0 x 1.0 x 0.3 cm cm in the left breast at 1 o'clock, 5 cm from the nipple. Internal echotexture is hypoechoic. Color flow imaging demonstrates vascularity is not present. This correlates with myelography findings. Differential considerations include fibroadenoma, commentated cyst, and fibrocystic change. IMPRESSION IMPRESSION: The 1 cm oval parallel lesion in the left breast at 1 o'clock, 5 cm from the nipple is probably benign. Follow-up with diagnostic mammogram and ultrasound is recommended in 6 months. BI-RADS Category 3: Probably Benign Interpreting Radiologist: Esequiel Villeda M.D. Electronically signed on: 05/10/2024 Plant Taxonomy Teacher: KHADAR Transcribe Date/Time: May 10 2024 8:34A Dictated by : ESEQUIEL VILLEDA MD This examination was interpreted and the report reviewed and electronically signed by: ESEQUIEL VILLEDA MD on May 10 2024 8:57AM [facility] Radiology Study observation (narrative) [facility] US Breast - left limitedOrde red By: Ccf Provider on 05-10-2024 [facility] DBT Breast - bilateral scree mosesgon 03-17-2024 * * *Final Report* * * DATE OF EXAM: Mar 17 2024 9:35AM W 0582 - [facility] S[facility]ENING W KEREN / PROCEDURE REASON: Encounter for screening mammogram for breast cancer * * * * Physician Interpretation * * * * RESULT: [facility] [address] [id number] #[id number] - [facility] SCREENING W KEREN HISTORY: 39 year-old patient seen for screening and is asymptomatic in both breasts. Patient states no personal history of breast cancer. Patient states no personal history of other cancers. COMPARISON STUDIES: This is a baseline study. MAMMOGRAM TECHNIQUE: The study was acquired using full field digital technology and interpreted from soft copy. Digital Breast Tomosynthesis (DBT) images were obtained and used to assist in the interpretation of this examination. MAMMOGRAM FINDINGS: There are scattered areas of fibroglandular density. There is a focal asymmetry in the upper outer quadrant of the left breast, middle depth. No additional significant masses, calcifications or other findings are seen in either breast. DIVISION OF RADIOLOGY Provider, [facility] - 03/17/2024 * * *Final Report* * * DATE OF EXAM: Mar 17 2024 9:35AM W 0582 - [facility] SCREENING W KEREN / PROCEDURE REASON: Encounter for screening mammogram for breast cancer * * * * Physician Interpretation * * * * RESULT: [facility] [address] [place] [address] #[id number] - [facility] SCREENING W KEREN HISTORY: 39 year-old patient seen for screening and is asymptomatic in both breasts. Patient states no personal history of breast cancer. Patient states no personal history of other cancers. COMPARISON STUDIES: This is a baseline study. MAMMOGRAM TECHNIQUE: The study was acquired using full field digital technology and interpreted from soft copy. Digital Breast Tomosynthesis (DBT) images were obtained and used to assist in the interpretation of this examination. MAMMOGRAM FINDINGS: There are scattered areas of fibroglandular density. There is a focal asymmetry in the upper outer quadrant of the left breast, middle depth. No additional significant masses, calcifications or other findings are seen in either breast. IMPRESSION IMPRESSION: The focal asymmetry in the left breast requires additional evaluation. Diagnostic ultrasound is recommended. BI-RADS Category 0: Incomplete: Needs Additional Imaging Evaluation RISK: Based on the Tyrer-Cuzick (TC) risk assessment model, this patient has a 8.9% lifetime risk of developing breast cancer, meaning they are at average risk for developing breast cancer. However, this is only an estimate based on available history provided on the patient's questionnaire. We encourage all patients to talk with their providers about these results, further recommendations for managing breast health, and appropriate supplemental screening options if the patient has dense breast tissue. Interpreting Radiologist: Avelino Munroe M.D. Electronically signed on: 03/17/2024 Plant Taxonomy Teacher: KHADAR Transcribe Date/Time: Mar 17 2024 9:13A Dictated by: AVELINO MUNROE MD This examination was interpreted and the report reviewed and electronically signed by: AVELINO MUNROE MD on Mar 17 2024 12:09PM EST [facility] Radiology Study observation (narrative) [facility] DBT Breast - bilateral scree ningOrdered By: Cccody Provider on 03-17-2024 [facility]ATT SCREENING W TOMOon 03-17 [facility]ING W KEREN * * *Final Report* * * DATE OF EXAM: Mar 17 2024 9:35AM [facility] 0582 - [facility] SCREENING W KEREN / PROCEDURE REASON: Encounter for screening mammogram for breast cancer * * * * Physician Interpretation * * * * RESULT: [facility] [address] [place] [address] #[id number] - [facility] SCREENING W KEREN HISTORY: 39 year-old patient seen for screening and is asymptomatic in both breasts. Patient states no personal history of breast cancer. Patient states no personal history of other cancers. COMPARISON STUDIES: This is a baseline study. MAMMOGRAM TECHNIQUE: The study was acquired using full field digital technology and interpreted from soft copy. Digital Breast Tomosynthesis (DBT) images were obtained and used to assist in the interpretation of this examination. MAMMOGRAM FINDINGS: There are scattered areas of fibroglandular density. There is a focal asymmetry in the upper outer quadrant of the left breast, middle depth. No additional significant masses, calcifications or other findings are seen in either breast. IMPRESSION: The focal asymmetry in the left breast requires additional evaluation. Diagnostic ultrasound is recommended. BI-RADS Category 0: Incomplete: Needs Additional Imaging Evaluation RISK: Based on the Tyrer-Cuzick (TC) risk assessment model, this patient has a 8.9% lifetime risk of developing breast cancer, meaning they are at average risk for developing breast cancer. However, this is only an estimate based on available history provided on the patient's questionnaire. We encourage all patients to talk with their providers about these results, further recommendations for managing breast health, and appropriate supplemental screening options if the patient has dense breast tissue. Interpreting Radiologist: Avelino Munroe M.D. Electronically signed on: 03/17/2024 Plant Taxonomy Teacher: KHADAR Transcribe Date/Time: Mar 17 2024 9:13A Dictated by: AVELINO MUNROE MD This examination was interpreted and the report reviewed and electronically signed by: AVELINO MUNROE MD on Mar 17 2024 12:09PM EST [id number] Normal [facility] ONEYDA [facility] ([id number]) 1985 F Date Time Provider Department 12/25/23 [facility] During your visit today, we recorded the following information about you: Jocelin Haro, RN 12/25/2023 11:26 AM Signed Pt called in and reports her insurance needs a PA for the CT of her brain. I send a message to [employer]. Awaiting response on if it is approved or denied. Jocelin Haro RN 12/25/2023 11:52 AM Signed Per [employer], Once the CT is scheduled, the referral will drive to our workqueue to be completed in DOS order.. If scheduling could help Pt schedule appointment and let her know this that would be great. Teodora Aaron, BERNADETTE 12/28/2023 8:24 AM Signed 1st attempt: LVM for patient to schedule brain CT Rosy Hagen 12/28/2023 2:34 PM Signed Patient returned call and scheduled CT Brain for 01/11/24. Allergies As of Date: 12/25/2023 (No Known Allergies) Date Reviewed: 12/15/2023 Reviewed by: Sharron Rosario OD - Fully Assessed Reason for Visit: PA for CT of Brain [Other] Prescriptions as of 12/28/2023 - lisdexamfetamine (VYVANSE) 30 mg capsule Take 1 capsule by mouth once daily for 30 days. In the morning - lisdexamfetamine (VYVANSE) 30 mg capsule Take 1 capsule by mouth once daily for 30 days. Patient should start on January 11, 2024. - lisdexamfetamine (VYVANSE) 30 mg capsule Take 1 capsule by mouth once daily for 30 days. Patient should start on February 08, 2024. - L-Norgest and E Estradiol-E Estrad (SEASONIQUE) 0.15 mg-30 mcg (84)/10 mcg (7) Take 1 tablet by mouth once daily. - riboflavin, vitamin B2, (VITAMIN B2) 100 mg tab Take 4 tablets by mouth once daily. - Magnesium Gluconate 27.5 mg magne- sium (500 mg) tab Take 1 tablet by mouth once daily. - Cholecalciferol, Vitamin D3, 50 mcg (2,000 unit) cap Take 1 capsule by mouth once daily. - sertraline (ZOLOFT) 50 mg tablet Take 1 tablet by mouth daily with dinner. - levothyroxine (LEVOXYL) 50 mcg tablet Take 1 tablet by mouth once daily. Take on empty stomach. For Thyroid Problem List As Of Date 12/25/2023 Noted Resolved Migraine [G43.909] 07/22/2017 Lightheadedness [R42] 07/22/2017 Situational depression [F43.21] 07/22/2017 Hyperlipidemia, mixed [E78.2] 01/22/2018 Well adult exam [Z00.00] 01/22/2018 Tinnitus, right ear [H93.11] 01/22/2018 Situational anxiety [F41.8] 02/19/2022 Elevated TSH [R79.89] 10/07/2022 Fatigue [R53.83] 10/07/2022 Cold intolerance [R68.89] 10/07/2022 Dry skin [L85.3] 10/07/2022 Brittle nails [L60.3] 10/07/2022 Sleep disorder [G47.9] 10/07/2022 Iron deficiency [E61.1] 10/07/2022 Subclinical hypothyroidism [E03.8] 10/2022 Snoring [R06.83] 01/22/2023 Hypersomnolence [G47.10] 01/22/2023 Impaired concentration [R41.840] 01/22/2023 CRP elevated [R79.82] 04/21/2023 Dyslipidemia [E78.5] 04/21/2023 Vitamin D deficiency [E55.9] 04/21/2023 Chronic insomnia [F51.04] 10/23/2023 Attention deficit disorder (ADD) without hypera*10/23/2023 Headache, worsening [R51.9] 10/23/2023 Obesity, Class I, BMI 30-34.9 [E66.811] 12/03/2023 Encounter Status:Closed by ROSY HAGEN on 12/28/23 Normal [facility] VISUAL FIELD 30-2 OU (BOTH E YES)on 12-15-2023 [facility] Radiology Study observation (narrative) [facility] CNOVon 12-11-2023 CNOV Office Visit (FAMPWS ) ONEYDA MAO ([id number]) 1985 F Date Time Provider Department 12/11/23 3:00 PM MOFFETTKETAN YBARRA HAL During your visit today, we recorded the following information about you: Temperature Pulse Respiration Blood pressure 97.8 degrees 80/minute 16/minute 100/60 Weight 88 kg Ketan Moffett, DO 12/17/2023 9:02 AM Signed CC: Oneyda Mao is a 38 year old female who presents to the office for follow up HPI: Seen in office last 3 months ago on 07/22/23, at that time Mood, she is currently taking zoloft medication as prescribed. She was struggling with impaired concentration and focus, affects her at her job as well as at home and not getting her tasks completed or projects done. This was frustrating to her. No SI or HI. She feels she has lack of ambition and motivation. She was started Adderall XR and this has been increased to 20 mg in the AM. She has noticed several migraine and tension like headaches since she has been taking the medication. Not having these symptoms when not on the medication. Hypothyroidism, taking levothyroxine as prescribed Did travel to [place] in mid June and was having increased sweating while she was there- otherwise did well with travel She was changed to adderall short acting At last OFFICE VISIT on 10/23/23 Mood, she is currently taking zoloft medication as prescribed. She was struggling with impaired concentration and focus, affects her at her job as well as at home and not getting her tasks completed or projects done. This was frustrating to her. No SI or HI. She feels she has lack of ambition and motivation. She was started Adderall XR and this has been increased to 20 mg in the AM. She noticed several migraine and tension like headaches since she has been taking the medication. Not having these symptoms when not on the medication. She was changed to short acting adderall. Still struggling with daily headaches and fatigue, not sleeping well at night. Trouble falling asleep and staying asleep and when she wakes up in the middle of the night then can't fall asleep again. Hypothyroidism, taking levothyroxine as prescribed Fatigue symptoms Currently Headaches, 2-3 days a week, up to 6-7/10 on pain scale. These are improved but not resolved. She doesn't have a known history of vision deficits but she is concerned about this as a potential trigger to he headache symptoms. ADD. 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 No vomiting Subclinical hypothyroidism TSH Date Value Ref Range Status 10/16/2023 2.760 0.270 - 4.200 mIU/L Final Comment: If the patient is , TSH reference range varies by gestational period: First Trimester (weeks 9-12): 0.180-2.990 mIU/L Second Trimester: 0.110-3.980 mIU/L Third Trimester: 0.480-4.710 mIU/L Yan John et al. A Practical Approach for the Verifications and Determination of Site- and Trimester-Specific Reference Intervals for Thyroid Function tests in . Thyroid, 2019:29:3:412-420. Adria Staton et al. 2017 Guidelines of the [place] Thyroid Association for the Diagnosis and Management of Thyroid Disease during and the . Thyroid, 2017:27:3:315-389. PAST MEDICAL HISTORY Diagnosis Date Genital warts Hypercholesteremia 03/19/2015 LGSIL (low grade squamous intraepithelial dysplasia) 02/17/2008 Subclinical hypothyroidism 10/2022 PAST SURGICAL HISTORY Procedure Laterality Date PAST SURGICAL HISTORY OF 2007? laser treatment to genital warts PAST SURGICAL HISTORY OF 06/05/2021 laparoscopic excision fo endometriosis, right ureterlysis VAGINOSCOPY 02/17/2008 Social History: Social History Tobacco Use Smoking status: Never Smokeless tobacco: Never Vaping Use Vaping status: Never Used Substance Use Topics Alcohol use: Yes Comment: seldom Drug use: Never FAMILY HISTORY Problem Relation Age of Onset Hyperlipidemia Father Hypertension Father Arthritis Father Melanoma Father back Thyroid Mother Hypertension Mother Hyperlipidemia Mother Osteoporosis Mother arthritis as well other (Uterine fibroids) Mother No Known Problems Sister Hypertension Brother Lipids Brother Heart Maternal Grandmother other (lupus) Maternal Grandmother Arthritis Maternal Grandfather Hyperlipidemia Maternal Grandfather Macular Degen Paternal Grandmother Heart Paternal Grandfather MD Anesthesia Problems No Family History Current Outpatient prescriptions: lisdexamfetamine (VYVANSE) 30 mg capsule Take 1 capsule by mouth once daily for 30 days. In the morning [START ON 01/11/2024] lisdexamfetamine (VYVANSE) 30 mg capsule Take 1 capsule by mouth once daily for 30 days. Patient should start on January 11, 2024. [START ON (more content not included)... Normal [facility] CNOVon 12-03-2023 CNOV Office Visit (OBGYWM ) ONEYDA MAO ([id number]) 1985 F Date Time Provider Department 12/03/23 8:40 AM ABEL CHOU OBGYWM During your visit today, we recorded the following information about you: Blood pressure Weight Height Last Period 120/74 88.9 kg 1.676 m 10/18/23 Abel Chou MD 12/03/2023 9:34 AM Signed Hot Metal Charger offered: Patient declines. Oneyda is a 38 year old who presents for an annual gynecologic exam without complaints. Started new job at [employer] Menses: rare, light , doing well on pills. 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 laser treatment to genital warts PAST SURGICAL HISTORY OF 06/05/2021 laparoscopic excision fo endometriosis, right ureterlysis VAGINOSCOPY 02/17/2008 FAMILY HISTORY Problem Relation Age of Onset Thyroid Mother Hypertension Mother Hyperlipidemia Mother Osteoporosis Mother arthritis as well other (Uterine fibroids) Mother Hyperlipidemia Father Hypertension Father Arthritis Father Melanoma Father back Hypertension Brother Lipids Brother Heart Maternal Grandmother other (lupus) Maternal Grandmother Arthritis Maternal Grandfather Hyperlipidemia Maternal Grandfather Heart Paternal Grandfather MD Anesthesia Problems No Family History SOCIAL HISTORY Social History Tobacco Use Smoking status: Never Smokeless tobacco: Never Vaping Use Vaping status: Never Used Substance Use Topics Alcohol use: Yes Comment: seldom Drug use: Never REVIEW OF SYSTEMS Abdomen: No abdominal pain, nausea, vomiting, diarrhea, or constipation. No bloating, early satiety, indigestion, or increased flatulence. Bladder: No dysuria, gross hematuria, urinary frequency, urinary urgency, or incontinence. Breast: No breast lumps, nipple d/c, overlying skin changes, redness or skin retraction. Allergies and current medication updated:Yes SENSITIVE EXAM: The sensitive examination was discussed with the Patient or Patient's Authorized Primary Products Inspectors. As applicable, any other physician, advance practice provider, medical student, or other health professional student that will be observing or involved in the sensitive examination for educational or training purposes was discussed with the Patient or Authorized Primary Products Inspectors. The Patient or Authorized Primary Products Inspectors has agreed to proceed with the sensitive examination. (Sensitive examination includes inspection and/or palpation of the breasts, pelvis, prostate and anorectal regions). EXAM: LMP 07/13/2023 GENERAL: pleasant, female in no apparent distress HEENT: Normocephalic, atraumatic, mucus membranes moist, and no lesions NECK: Supple, full range of motion, no adenopathy, and thyroid normal DERMATOLOGY: Normal, without lesions, non-icteric, and non-hirsute BREAST: soft, non-tender, symmetric, no dominant mass, normal nipple-areolar complex, no lymphadenopathy, and no nipple discharge CHEST: Normal inspiratory effort ABDOMEN: soft, non-tender, and no masses PELVIC: external genitalia normal, normal Bartholin's glands, urethra, Silerton's glands, no vulvar lesions, no cervical lesions, good vaginal support, physiologic discharge present, normal appearing perineal body and perianal region BIMANUAL: uterus normal size, shape and consistency, no adnexal masses, and non-tender RECTOVAGINAL: deferred. NEURO: alert and oriented x3,exam grossly non-focal EXTREMITIES: normal ASSESSMENT/PLAN: 1) Health maintenance: Pap/HPV up to date. Mammogram ordered. 2) Contraception: combined hormonal contraceptives. Contraceptive options reviewed and information provided. 3) STD screening: Declined STD check. 4) Follow up one year or sooner as needed Abel Chou MD Allergies As of Date: 12/03/2023 (No Known Allergies) Date Reviewed: 12/03/2023 Reviewed by: Abel Chou MD - Fully Assessed Reason for Visit: Well Woman [1463] Immunizations [194] Cmt: Flu vaccination Primary Visit Diagnosis:Encounter for gynecological examination (general) (routine) without abnormal findings [Z01.419] Other Visit (more content not included)... Normal [facility] CNOVon 10-23-2023 CNOV Office Visit (FAMPWS ) ONEYDA MAO ([id number]) 1985 F Date Time Provider Department 10/23/23 10:00 AM [facility] During your visit today, we recorded the following information about you: Temperature Pulse Respiration Blood pressure 97 degrees 64/minute 16/minute 90/60 Weight 90.3 kg Ketan Moffett DO 10/23/2023 10:45 AM Addendum Magnesium glycinate or gluconate 400-500 mg in the evening Vitamin D3 at least 2000 international unit(s) a day in the evening Riboflavin 400 mg a day in the evening This can help the headaches and sleep, can take with supper Change the adderall to vyvanse for ADD to take in the AM Change the zoloft to the morning Ketan Moffett DO 10/23/2023 11:41 AM Signed CC: Oneyda Mao is a 38 year old female who presents to the office for follow up HPI: Seen in office last 3 months ago on 07/22/23, at that time Mood, she is currently taking zoloft medication as prescribed. She was struggling with impaired concentration and focus, affects her at her job as well as at home and not getting her tasks completed or projects done. This was frustrating to her. No SI or HI. She feels she has lack of ambition and motivation. She was started Adderall XR and this has been increased to 20 mg in the AM. She has noticed several migraine and tension like headaches since she has been taking the medication. Not having these symptoms when not on the medication. Hypothyroidism, taking levothyroxine as prescribed Did travel to [place] in mid June and was having increased sweating while she was there- otherwise did well with travel She was changed to adderall short acting Currently Mood, she is currently taking zoloft medication as prescribed. She was struggling with impaired concentration and focus, affects her at her job as well as at home and not getting her tasks completed or projects done. This was frustrating to her. No SI or HI. She feels she has lack of ambition and motivation. She was started Adderall XR and this has been increased to 20 mg in the AM. She noticed several migraine and tension like headaches since she has been taking the medication. Not having these symptoms when not on the medication. She was changed to short acting adderall. Still struggling with daily headaches and fatigue, not sleeping well at night. Trouble falling asleep and staying asleep and when she wakes up in the middle of the night then can't fall asleep again. Hypothyroidism, taking levothyroxine as prescribed Fatigue symptoms PAST MEDICAL HISTORY No date: Genital warts 03/19/2015: Hypercholesteremia 02/17/2008: LGSIL (low grade squamous intraepithelial dysplasia) 10/2022: Subclinical hypothyroidism PAST SURGICAL HISTORY 2007?: PAST SURGICAL HISTORY OF Comment: laser treatment to genital warts 06/05/2021: PAST SURGICAL HISTORY OF Comment: laparoscopic excision fo endometriosis, right ureterlysis 02/17/2008: VAGINOSCOPY Current Outpatient Medications Medication Sig riboflavin, vitamin B2, (VITAMIN B2) 100 mg tab Take 4 tablets by mouth once daily. Magnesium Gluconate 27.5 mg magne- sium (500 mg) tab Take 1 tablet by mouth once daily. Cholecalciferol, Vitamin D3, 50 mcg (2,000 unit) cap Take 1 capsule by mouth once daily. lisdexamfetamine (VYVANSE) 30 mg capsule Take 1 capsule by mouth once daily for 30 days. In the morning L-Norgest and E Estradiol-E Estrad (SEASONIQUE) 0.15 mg-30 mcg (84)/10 mcg (7) Take 1 tablet by mouth once daily. sertraline (ZOLOFT) 50 mg tablet Take 1 tablet by mouth daily with dinner. sertraline (ZOLOFT) 100 mg tablet Take 1 tablet by mouth once daily. levothyroxine (LEVOXYL) 50 mcg tablet Take 1 tablet by mouth once daily. Take on empty stomach. For Thyroid ferrous sulfate (SLOW FE) 140 mg (45 mg iron) TbER Take 1 tablet by mouth once daily. With a meal No current facility-administered medications for this visit. ALLERGIES No Known Allergies Social History Tobacco Use Smoking status: Never Smokeless tobacco: Never Vaping Use Vaping status: Never Used Substance Use Topics Alcohol use: Yes Comment: seldom Drug use: Never ROS: See HPI PE: BP 90/60 Pulse 64 Temp (Src) 97 (Right Tympanic) Resp 16 Wt 199 lb (90.3kg) LMP 07/13/2023 Gen: AANDOX3, NAD, non-toxic appearing. Tearful in the office HEENT: PERRLA, EOMs intact b/l, nares without drainage, pharynx without erythema, exudate, lesions, or drainage. Uvula midline. Neck: No LAD, no thyromegaly, no meningismus. CV: RRR, no murmur Lungs: CTA b/l, no wheezing Skin: No rashes, lesions, or wounds on exposed skin. No edema, normal pulses Non focal neurologic examination ASSESSMENT/PLAN: 1. Headache, worsening - ICD9: 784.0, ICD10: R51.9 (primary diagnosis) Start on supplements Change Adderall short acting to Vyvanse. Likely having havi (more content not included)... Normal [facility] Lipid 1996 panelon 4 Cholesterol [Mass/Vol] 276 mg/dL High <200 [facility] Comment on above: Order Comment: Speci men Type: BLOOD SPECIMENOrdering Facility: [facility] Address: [address] [place] [address] Result Comment: <200 mg/dL, Desirable 200-239 mg/dL, Borderline high >239 mg/dL, High Performed By: #### 2 4331-1, 3051-0, 3024-7, 6-3 ####[facility] LABCLIA [id number] [address] [address] [place] Cholesterol in HDL [Mass/Vol] 34 mg/dL Low >39 [facility] Comment on above: Order Comment: Saleem tovar Type: BLOOD SPECIMENOrdering Facility: [facility] Address: [address] [place] [address] Result Comment: 40-5 9 mg/dL, Acceptable >59 mg/dL, High: Negative risk factor for coronary heart disease <40 mg/dL, Low: Positive risk factor for coronary heart disease Performed By: #### 2 4331-1, 0, 7, 3 ####[facility] LABCLIA [id number] [address] [address] [place] Cholesterol in LDL [Mass/Vol] 223 mg/dL High <100 [facility] Comment on above: Order Comment: Saleem tovar Type: BLOOD SPECIMENOrdering Facility: [facility] Address: [address] [place] [address] Result Comment: <100 mg/dL, Optimal 100-129 mg/dL, Near optimal/above optimal 130-159 mg/dL, Borderline high 160-189 mg/dL, High >189 mg/dL, Very high Secondary prevention optimal LDL Cholesterol levels are recommended to be < 70 mg/dL Performed By: #### 2 4331-1, 3050-0, 7, 6-3 ####[facility] LABIA [id number] [address] [address] [place] Cholesterol in LDL/Cholesterol in HDL [Mass ratio] 6.56 {ratio} High <2.54 [facility] Comment on above: Order Comment: Siobhani men Type: BLOOD SPECIMENOrdering Facility: [facility] Address: [address] [place] [address] Result Comment: Refe rence: 1. National Cholesterol Education Program ATP III Guideline At-A-Glance Quick Desk Reference: National Heart, Lung, and Blood Grant. National Institutes of Health. 2001: NIH Publication No. 01-3305. 2. An International Atherosclerosis Society position paper: global recommendations for the management of dyslipidemia: executive summary, Atherosclerosis. 2014: 232(2):410-413. Performed By: #### 2 4331-1, 3051-0, 3024-7, 6-3 ####[facility] LABCLIA [id number] [address] [address] [place] Cholesterol in VLDL [Mass/Vol] 19 mg/dL Normal <30 [facility] Comment on above: Order Comment: Speci men Type: BLOOD SPECIMENOrdering Facility: [facility] Address: [address] [place] [address] Performed By: #### 2 4331-1, 305-0, 3023-7, 3015-3 ####[facility] LABCLIA [id number] [place] [address] [place] Cholesterol non HDL [Mass/Vol] 242 mg/dL High <130 [facility] Comment on above: Order Comment: Speci men Type: BLOOD SPECIMENOrdering Facility: [facility] Address: [address] [place] [address] Result Comment: <130 mg/dL, Optimal 130-159 mg/dL, Near optimal/above optimal 160-189 mg/dL, Borderline high 190-219 mg/dL, High >219 mg/dL, Very high Secondary prevention optimal non HDL Cholesterol levels are recommended to be <100 mg/dL Performed By: #### 2 4331-1, 3051-0, 3023-7, 6-3 ####[facility] LABCLIA [id number] [address] [address] [place] Cholesterol.total/Ch olesterol in HDL [Mass ratio] 8.12 {ratio} High <5.10 [facility] Comment on above: Order Comment: Speci men Type: BLOOD SPECIMENOrdering Facility: [facility] Address: [address] [place] [address] Performed By: #### 2 4331-1, 305-0, 3023-7, 6-3 ####[facility] LABCLIA [id number] [place] [id number] [place] FASTING TIME 12 hrs Normal [facility] Comment on above: Order Comment: Speci men Type: BLOOD SPECIMENOrdering Facility: [facility] Address: [address] [place] [address] Performed By: #### 2 4331-1, 3051-0, 7, 6-3 ####[facility] LABCLIA [id number] [place] [address] [place] Triglyceride [Mass/Vol] 94 mg/dL Normal <150 [facility] Comment on above: Order Comment: Speci men Type: BLOOD SPECIMENOrdering Facility: [facility] Address: [address] [place] [address] Result Comment: <150 mg/dL, Normal 150-199 mg/dL, Borderline high 200-499 mg/dL, High >499 mg/dL, Very high Performed By: #### 2 4331-1, 305-0, 7, 6-3 ####[facility] LABCLIA [id number] [place] [address] [place] T3Free SerPl-mCncon 10-15-20 24 Free T3 [Mass/Vol] 3.0 pg/mL Normal 2.3-4.1 [facility] Comment on above: Order Comment: Speci men Type: BLOOD SPECIMENOrdering Facility: [facility] Address: [address] [place] [address] Performed By: #### 2 4331-1, 3051-0, 3023-7, 6-3 ####[facility] LABCLIA [id number] [place] [id number] [place] T4 Free SerPl-mCncon 30-2 024 Free T4 [Mass/Vol] 1.3 ng/dL Normal 0.9-1.7 [facility] Comment on above: Order Comment: Speci men Type: BLOOD SPECIMENOrdering Facility: [facility] Address: [address] [place] [address] Performed By: #### 2 4331-1, 3051-0, 4-7, 6-3 ####[facility] LABCLIA [id number] [place] [address] [place] TSH SerPl-aCncon 10-16-2023 TSH Qn 2.760 m[IU]/L Normal 0.270-4.200 [facility] Comment on above: Order Comment: Speci guy Type: BLOOD SPECIMENOrdering Facility: [facility] Address: [address] [place] [address] Result Comment: If t he patient is , TSH reference range varies by gestational period: First Trimester (weeks 9-12): 0.180-2.990 mIU/L Second Trimester: 0.110-3.980 mIU/L Third Trimester: 0.480-4.710 mIU/L Yan John et al. A Practical Approach for the Verifications and Determination of Site- and Trimester-Specific Reference Intervals for Thyroid Function tests in . Thyroid, 2019:29:3:412-420. dAria Staton, et al. 2017 Guidelines of the [place] Thyroid Association for the Diagnosis and Management of Thyroid Disease during and the . Thyroid, 2017:27:3:315-389. Performed By: #### 2 4331-1, 305-0, 3023-7, 6-3 ####[facility] LABIA [id number] [place] [id number] [place] CNOVon 07-22-2023 CNOV Office Visit (FAMPWS ) ONEYDA MAO ([id number]) 1985 F Date Time Provider Department 07/22/23 10:00 AM KETAN MOFFETTPWS During your visit today, we recorded the following information about you: Temperature Pulse Respiration Blood pressure 97 degrees 80/minute 16/minute 100/74 Weight Last Period 91.6 kg 07/13/23 Ketan Moffett, DO 07/22/2023 1:05 PM Signed CC: Oneyda Mao is a 38 year old female who presents to the office for follow up HPI: Mood, she is currently taking zoloft medication as prescribed. She was struggling with impaired concentration and focus, affects her at her job as well as at home and not getting her tasks completed or projects done. This was frustrating to her. No SI or HI. She feels she has lack of ambition and motivation. She was started Adderall XR and this has been increased to 20 mg in the AM. She has noticed several migraine and tension like headaches since she has been taking the medication. Not having these symptoms when not on the medication. Hypothyroidism, taking levothyroxine as prescribed Did travel to [place] in mid June and was having increased sweating while she was there- otherwise did well with travel PAST MEDICAL HISTORY Diagnosis Date Genital warts Hypercholesteremia 03/19/2015 LGSIL (low grade squamous intraepithelial dysplasia) 02/17/2008 Subclinical hypothyroidism 10/2022 PAST SURGICAL HISTORY Procedure Laterality Date PAST SURGICAL HISTORY OF 2007? laser treatment to genital warts PAST SURGICAL HISTORY OF 06/05/2021 laparoscopic excision fo endometriosis, right ureterlysis VAGINOSCOPY 02/17/2008 Current Outpatient Medications Medication Sig sertraline (ZOLOFT) 50 mg tablet Take 1 tablet by mouth daily with dinner. amphetamine-dextroamph etamine XR (ADDERALL XR) 20 mg capsule Take 1 capsule by mouth once daily for 30 days. In the morning sertraline (ZOLOFT) 100 mg tablet Take 1 tablet by mouth once daily. levothyroxine (LEVOXYL) 50 mcg tablet Take 1 tablet by mouth once daily. Take on empty stomach. For Thyroid L-Norgest and E Estradiol-E Estrad (SEASONIQUE) 0.15 mg-30 mcg (84)/10 mcg (7) Take 1 tablet by mouth once daily. ferrous sulfate (SLOW FE) 140 mg (45 mg iron) TbER Take 1 tablet by mouth once daily. With a meal No current facility-administered medications for this visit. ALLERGIES No Known Allergies Social History Tobacco Use Smoking status: Never Smokeless tobacco: Never Vaping Use Vaping Use: Never used Substance Use Topics Alcohol use: Yes Comment: seldom Drug use: Never ROS: See HPI PE: BP 100/74 Pulse 80 Temp (Src) 97 (Right Tympanic) Resp 16 Wt 202 lb (91.6kg) LMP 07/13/2023 Gen: AANDOX3, NAD, non-toxic appearing HEENT: PERRLA, EOMs intact b/l, nares without drainage, pharynx without erythema, exudate, lesions, or drainage. Uvula midline. Neck: No LAD, no thyromegaly, no meningismus. CV: RRR, no murmur Lungs: CTA b/l, no wheezing Skin: No rashes, lesions, or wounds on exposed skin. ASSESSMENT/PLAN: 1. Subclinical hypothyroidism - ICD9: 244.8, ICD10: E03.8 (primary diagnosis) - Instructed patient on importance of taking on an empty stomach either first thing in the morning or at bedtime. - continue current dose of Synthroid 0.050 mg - THYROID STIMULATING HORMONE - T4 FREE/FREE THYROXINE - T3, FREE 2. Attention deficit disorder (ADD) without hyperactivity - ICD9: 314.00, ICD10: F98.8 Discontinue Adderall XR formulation of medication- this is causing her migraine/tension headaches. Recommend trial of short acting adderall 10-20 mg in AM and afternoon as needed. If this is givng her SE, then change to generic Vyvanse as d/w her today - DEXTROAMPHETAMINE-AMPH ETAMINE 10 MG TABLET Ketan Moffett DO Return if no improvement. Follow up with Ketan Moffett DO. To ER if develops chest pain, shortness of breath. Discussed risks, benefits, alternatives, and potential side effects of medications. Patient/Guardian expressed understanding and agreed with the plan. See patient instructions. Ketan Moffett DO [address] [place] [address] Ketan Moffett DO 07/22/2023 10:40 AM Signed Discontinue the Adderall XR Start on short acting adderall- can begin with 1 tablet in the AM when waking up. This can be increased to 1.5 or 2 tablets if needed in the AM. If notice that symptoms start to begin around noon or after, could take another tablet of Adderall - would recommend the afternoon dose be taken before 2 pm if this is going to be used. Update office in a few weeks on how you are doing with the medication- I will refill the medication then if doing well with this Next option would be Vyvanse Allergies As of Date: 07/22/2023 (No Known Allergies) Date Reviewed: 07/22/2023 Reviewed (more content not included)... Normal [facility] VITAMIN D 25 HYDROXYon 01-22 25-hydroxyvitamin D3 [Mass/Vol] 131.0 ng/mL High 31.0 - 80.0 ng/mL [facility] ANES POSTPROC EVALon 022 ANES POSTPROC EVAL HNO ID: [id number] Author: Ally Mullen MD Service: ? Author Type: Physician Type: Anesthesia Postprocedure Evaluation Filed: 06/05/2021 2:03 PM Note Text: POST ANESTHESIA EVALUATION NOTE : 1985 Procedure Summary Date: 06/05/21 Room / Location: OR / SP OR Anesthesia Start: 1127 Anesthesia Stop: 1357 Procedure: LAPAROSCOPY WITH EXCISION OF ENDOMETRIAL LESIONS PELVIS (N/A Abdomen) Diagnosis: Pelvic pain in female Hematosalpinx (Pelvic pain in female [R10.2]) (Hematosalpinx [N83.6]) Surgeons: Easton Wiggins MD Responsible Provider: Ally Mullen MD Anesthesia Type: general ASA Status: 1 Anesthesia Type: general Airway Type: ETT Last Vitals Vitals Value Taken Time BP 106/55 06/05/21 1401 Temp 06/05/21 1403 Pulse 71 06/05/21 1401 Resp 23 06/05/21 1401 SpO2 100 % 06/05/21 1401 Vitals shown include unvalidated device data. Post Anesthesia Patient Status Patient Evaluation: bedside. Anticipated Disposition: phase 2 then home. Neurological Status: sleepy but arousable. Pulmonary Status: breathing comfortably on supplemental oxygen Airway Control: returned to baseline unsupported. Cardiovascular Status: stable. Pain Management: clinically adequate Postoperative Hydration: acceptable. Intraoperative Events: no significant anesthesia events Post Operative Nausea/Vomiting Status: no significant post operative nausea or vomiting Anesthetic Observations: Recommendation: continue current plan of care. Anesthesia Observations No Documentation SIGNATURE: Ally Mullen MD PATIENT NAME: Oneyda Mao DATE: June 05, 2021 TIME: 2:03 PM CSN: [id number] [facility] ANES PRE-OPon 06-05-2021 ANES PRE-OP HNO ID: [id number] Author: Ally Mullen MD Service: ? Author Type: Physician Type: Anesthesia Preprocedure Evaluation Filed: 06/05/2021 9:59 AM Note Text: ANESTHESIOLOGY DAY OF SURGERY NOTE : 1985 Procedure Information Date/Time: 06/05/21 1045 Procedures: LAPAROSCOPY WITH EXCISION OF ENDOMETRIAL LESIONS PELVIS (N/A ) LAPAROSCOPIC SALPINGECTOMY (Bilateral ) Location: SP OR11 / SP OR Surgeons: Easton Wiggins MD Estimated body mass index is 30.67 kg/m? as calculated from the following: Height as of 05/23/21: 167.6 cm (5' 6). Weight as of this encounter: 86.2 kg (190 lb). Most recent hematocrit and potassium results: Hematocrit 43.1 05/23/2021 Potassium 3.6 05/23/2021 Relevant Problems CARDIO (+) Migraine NEURO-PSYCH (+) Migraine I - PHYSICAL EVALUATION AIRWAY Patient intubated: No. Tracheostomy tube not present Mallampati: I. TM distance: >3 FB. Neck ROM: full ROM without neurological symptoms. Mouth opening: adequate. Short neck: no. Thick neck: no DENTAL Dental findings: teeth intact. Additional exam findings: no II - ANESTHESIA PLAN ASA Score: 1 Anesthetic Plan: general Airway type: ETT The patient is not a current smoker. NPO Status: adequate Monitoring plan: standard ASA. Postoperative analgesic plan: parenteral or oral opioids. Patient / Surrogate agrees to blood products: Yes Potential Anesthesia issues that may suggest increased risk of complications or contraindication to planned procedure: none. Vitals Value Taken Time BP 126/75 06/05/21 0921 Pulse 96 06/05/21 0921 Resp 16 06/05/21 0921 Temp 36.7 ?C (98.1 ?F) 06/05/21920 SpO2 99 % 06/05/21920 Facility-Administered Medications as of 06/05/2021 Medication Dose Route Frequency - lidocaine 10 mg/mL (1 %) 1-2 mg injection (XYLOCAINE) 0.1-0.2 mL INTRADERMAL PRN - lactated ringers iv infusion 5-30 mL/hr INTRAVENOUS CONTINUOUS - ceFAZolin iv piggyback 2 g in D5W 100 mL (ANCEF) 2 g INTRAVENOUS Pre-Op Once - [COMPLETED] celecoxib 400 mg cap(s) (CeleBREX) 400 mg ORAL ONCE - [COMPLETED] phenazopyridine 200 mg tab(s) (PYRIDIUM, GERIDIUM) 200 mg ORAL Pre-Op Once - scopolamine 1 mg over 3 days 1 Patch (TRANSDERM-SCOP) 1 Patch TRANSDERMAL q 72 HR And - scopolamine - REMOVE PATCH OTHER q 72 HR And - scopolamine - VERIFY patch OTHER q 8 H Outpatient Medications as of 06/05/2021 Medication Sig - naproxen (NAPROSYN) 375 mg tablet Take 1 tablet by mouth three times daily as needed (pain). - fluticasone (FLONASE) 50 mcg/actuation nasal spray Use 2 Sprays in each nostril once daily. Rinse mouth after use. I have interviewed and examined the patient. I have reviewed the medical record and/or the pre-anesthesia evaluation, pertinent labs, and test results. This contains updated information obtained within 48 hours of Surgery/Procedure. SIGNATURE: Ally Mullen MD PATIENT NAME: Oneyda Mao DATE: June 05, 2021 TIME: 9:58 AM CSN: [id number] [facility] HISTORY PHYSICALon 2 HISTORY PHYSICAL HNO ID: [id number] Author: Reyna Garcia MD Service: Obstetrics Author Type: Resident Type: HANDP Filed: 06/05/2021 11:08 AM Note Text: Attestation signed by Easton Wiggins MD at 06/06/2021 9:08 AM I saw and evaluated the patient. I personally obtained the alexis and critical portions of the history and physical exam. I discussed the patient with the resident and I agree with the medical decision making as documented in the note. Easton Wiggins MD, FACOG Associate Staff Minimally Invasive Gynecologic Surgery [facility] [email or web address] UPDATED HISTORY AND PHYSICAL EXAMINATION SERVICE DATE: 06/05/2021 SERVICE TIME: 11:08 AM PHYSICAL EXAM MUST BE COMPLETED ON ADMISSION The History and Physical (completed in the past 30 days) has been reviewed and the patient has been examined. The contents accurately reflect the patient's condition with the following additions or revisions since the HANDP was completed. Examination indicates no changes. This HANDP can be found in the Electronic Medical Record dated 06/05/2021. SIGNATURE: Reyna Garcia MD PATIENT NAME: Oneyda Mao DATE: June 05, 2021 TIME: 11:08 AM [facility] HISTORY PHYSICAL HNO ID: [id number] Author: Janice Beach PA-C Service: Gynecology Author Type: Physician Director Print Type: HANDP Filed: 06/05/2021 10:17 AM Note Text: UPDATED HISTORY AND PHYSICAL EXAMINATION SERVICE DATE: 06/05/2021 SERVICE TIME: 10:16 AM SERVICE: Gynecology PHYSICAL EXAM MUST BE COMPLETED ON ADMISSION The History and Physical (completed in the past 30 days) has been reviewed and the patient has been examined. The contents accurately reflect the patient's condition with the following additions or revisions since the HANDP was completed. Patient denies any changes to health since last examination. Patient DENIES CHEST PAIN, PALPITATIONS, FATIGUE, DIZZINESS Shortness of breath, COUGHING, WHEEZING ABDOMINAL PAIN, N/V/D Medication reconciliation list reviewed in [facility]. Past medical history, past surgical history, social history and family history reviewed and updated in [facility]. ALLERGIES Allergies: No Known Allergies SEE [facility] FOR VITALS BP 126/75 Pulse 96 Temp 36.7 ?C (98.1 ?F) (Temporal) Resp 16 Wt 86.2 kg (190 lb) LMP 02/07/2021 SpO2 99% BMI 30.67 kg/m? Examination indicates no changes. On examination today: Lungs: Clear to auscultation bilaterally. Heart: RRR, Normal S1/S2, No murmurs, rubs, gallops or thrills appreciated. Abdomen: BS+ in all quadrants, abdomen is soft, non tender, and without guarding. Assessment: Pelvic pain in female (Pelvic pain in female [R10.2]) Plan:Hematosalpinx (Hematosalpinx [N83.6]) This HANDP can be found in the Electronic Medical Record dated 05/23/21 done by Bekah Lopez PA-C SIGNATURE: Janice Beach PA-C PATIENT NAME: Oneyda Mao DATE: 06/05/2021 TIME: 10:16 AM [facility] OPERATIVE NOon 06-05-2021 OPERATIVE NO HNO ID: [id number] Author: Easton Wiggins MD Service: Gynecology Author Type: Physician Type: Operative Report Filed: 06/05/2021 1:54 PM Note Text: GROUP EXERCISE MANAGER OPERATIVE/PROCEDURE REPORT LOG ID: [id number] SURGERY/PROCEDURE DATE: 06/05/2021 INCISION/PROCEDURE START TIME: 12:10 PM INCISION CLOSE/PROCEDURE END TIME: SURGEON(S)/PROCEDURALI ST(S) AND JOINT TERMINAL ATTACK CONTROLLER(S): Surgeon(s) and Role: * Easton Wiggins MD - Primary * Reyna Garcia MD - Resident - Assisting No Additional Staff SURGERY/PROCEDURE(S): Laparoscopic excision of endometriosis, right ureterolysis ANESTHESIA: General FINDINGS Anterior cul-de-sac- Patch of clear vesicular lesions at the vesicouterine junction measuring approximately 1cm Posterior cul-de-sac- filmy ahdesions of the recto-sigmoid to the right ovarian fossa. Once uncovered there was a 1 x 1 cm ovoid lesion that appeared mostly solid and contained hemorrhagic fluid, it was located between the colon epiploica and mildly adherent to the peritoneum. It was release bluntly and aspirated with the suction railroad wheels and axle inspector Left ovarian fossa- No lesions Right ovarian fossa- Fibrotic over the area the hemorrhagic mass was noted. Uterosacral ligaments- Normal right, left was noted to have a cluster of red lesion ~1cm in diameter Uterus- normal appearing fallopian tubes and ovaries- Normal bilaterally, no blue noted to extrude from the distal aspect likely secondary to proximal spasm Bowel and Appendix- normal appearing Diaphragmatic peritoneum- normal appearing SPECIMENS: ID Type Source Tests Collected by Time A : Right Ovarian Fossa Peritoneum Tissue PERITONEUM BIOPSY SURGICAL PATHOLOGY Easton Wiggins MD 06/05/2021 1:00 PM B : Left Uterine Lesion Tissue PERITONEUM BIOPSY SURGICAL PATHOLOGY Easton Wiggins MD 06/05/2021 1:09 PM C : Anterior Cul-de-sac Lesions Tissue CUL-DE-SAC SURGICAL PATHOLOGY Easton Wiggins MD 06/05/2021 1:11 PM D : Left Uterosacral Lesion Tissue PERITONEUM BIOPSY SURGICAL PATHOLOGY Easton Wiggins MD 06/05/2021 1:20 PM COMPLICATIONS: None PRE-OP/PRE-PROCEDURE DIAGNOSIS: Hydrosalpinx, pelvic pain POST-OP/POST-PROCEDURE DIAGNOSIS: pelvic pain, no hydrosalpinx noted, likely endometriosis Estimated Blood Loss: 10 mL Implantable Devices: None Drains: None PROCEDURE: Informed Consent: Informed Consent obtained and on the chart The patient was taken to the operating room with an IV in place. Sequential compression devices were placed on her legs bilaterally. A time out was performed to confirm the correct patient, procedures, and allergies. She was induced under general endotracheal anesthesia without complication and an orogastric tube was inserted. She was placed in the low dorsal lithotomy position using Bam stirrups with careful attention to pressure points. Her arms were tucked at the sides using padded foam. An examination under anesthesia was performed with the above intraoperative findings noted. The patient was then prepped and draped in the normal sterile fashion. A Chavez catheter was placed into the bladder. A Graves speculum was then placed into the vagina, and the anterior lip of the cervix was grasped with a single-tooth tenaculum. The cervix serially dilated, and the Cathi uterine manipulator was inserted. The speculum was removed from the vagina, and the tenaculum was removed from the cervix. Attention was then turned to the abdomen where a 1 cm infraumbilical vertical skin incision was made with an 11 blade scalpel. The underlying fascia was sequentially grasped with Crile clamps, elevated and entered sharply using a scalpel. The edges of the fascia were then tagged with stay sutures of 0 Polysorb and a 10/12 blunt Kristi trocar was then placed through the incision and the abdomen was insufflated to a maximum filling pressure of 15 mmHg. The laparoscope was then placed through the trocar and confirmed entry into the peritoneum without incident, specifically without any apparent injury to the underlying bowel or bladder. Five mm ports were then placed as accessory ports in the bilateral lower quadrants with care to avoid epigastric vessels, as well as 1 in the suprapubic area with care to avoid the bladder. The patient was placed in the Trendelenburg position and a thorough survey of the abdomen was performed with the above intraoperative findings noted. Attention next placed on the right fibrotic ovarian fossa. The medial and lateral pararectal spaces were developed and ureter was identified. Ureter was noted to be adherent to the medial fibrotic peritoneum.Ureterolysi s was performed to mobilize ureter lateral away from the peritoneum beyond the tunnel of Wertheim. The uterine artery was isolated. With the ureter and inferior hypogastric nerves in view, the the fibrosis in the parametrium, ovarian fossa, were excised. The left utero-sacral lesion was excised. Attention (more content not included)... Normal [facility] HCG QUAL UR B/Oon 05-23-2021 status Negative neg - [facility] Quality Check Yes [facility] MRI PELVIS WO/W IVCONon 12- [facility] Vital Signs Date Time Vital Sign Value Performing Clinician Faci litgonzalez 07-04-2024 15:04-0400 Body mass index (BMI) [Ratio] 30.18 kg/m2 m[employer]M [employer] Work Phone: [facility] 07-04-2024 15:04-0400 Body temperature 98.01 [degF] m2M [employer] Work Phone: [facility] 07-04-2024 15:04-0400 Body weight 84.82 kg Ketan Moffett DO Work Phone: [facility] 07-04-2024 15:04-0400 Diastolic blood pressure 70 mm[Hg] Ketan Moffett DO Work Phone: [facility] 07-04-2024 15:04-0400 Heart rate 80 /min Ketan Moffett DO Work Phone: [facility] 07-04-2024 15:04-0400 Respiratory rate 12 /min Ketan Moffett DO Work Phone: [facility] 07-04-2024 15:04-0400 Systolic blood pressure 104 mm[Hg] Ketan Moffett DO Work Phone: [facility] 12-11-2023 15:50-0400 Body mass index (BMI) [Ratio] 31.31 kg/m2 Ketan Moffett DO Work Phone: [facility] 12-11-2023 15:50-0400 Body temperature 97.81 [degF] Ketan Moffett DO Work Phone: [facility] 12-11-2023 15:50-0400 Body weight 88 kg Ketan Moffett DO Work Phone: [facility] 12-11-2023 15:50-0400 Diastolic blood pressure 60 mm[Hg] Ketan Moffett DO Work Phone: [facility] 12-11-2023 15:50-0400 Heart rate 80 /min Ketan Moffett DO Work Phone: [facility] 12-11-2023 15:50-0400 Respiratory rate 16 /min Ketan Moffett DO Work Phone: [facility] 12-11-2023 15:50-0400 Systolic blood pressure 100 mm[Hg] Ketan Moffett DO Work Phone: [facility] 12-03-2023 08:40-0400 Body height 167.6 cm Abel Chou MD Work Phone: [facility] 12-03-2023 08:40-0400 Body mass index (BMI) [Ratio] 31.64 kg/m2 Abel Chou MD Work Phone: [facility] 12-03-2023 08:40-0400 Body weight 88.91 kg Abel Chou MD Work Phone: [facility] 12-03-2023 08:40-0400 Diastolic blood pressure 74 mm[Hg] Abel Chou MD Work Phone: [facility] 12-03-2023 08:40-0400 Systolic blood pressure 120 mm[Hg] Abel Chou MD Work Phone: [facility] 10-23-2023 09:59-0400 Body mass index (BMI) [Ratio] 32.76 kg/m2 Ketan Moffett DO Work Phone: [facility] 10-23-2023 09:59-0400 Body temperature 97 [degF] Ketan Moffett DO Work Phone: [facility] 10-23-2023 09:59-0400 Body weight 90.27 kg Ketan Moffett DO Work Phone: [facility] 10-23-2023 09:59-0400 Diastolic blood pressure 60 mm[Hg] Ketan Moffett DO Work Phone: [facility] 10-23-2023 09:59-0400 Heart rate 64 /min Ketan Moffett DO Work Phone: [facility] 10-23-2023 09:59-0400 Respiratory rate 16 /min Ketan Moffett DO Work Phone: [facility] 10-23-2023 09:59-0400 Systolic blood pressure 90 mm[Hg] Ketan Moffett DO Work Phone: [facility] 07-22-2023 09:52-0400 Body mass index (BMI) [Ratio] 33.25 kg/m2 Ketan Moffett DO Work Phone: [facility] 07-22-2023 09:52-0400 Body temperature 97 [degF] Ketan Moffett DO Work Phone: [facility] 07-22-2023 09:52-0400 Body weight 91.63 kg Ketan Moffett DO Work Phone: [facility] 07-22-2023 09:52-0400 Diastolic blood pressure 74 mm[Hg] Ketan Moffett DO Work Phone: [facility] 07-22-2023 09:52-0400 Heart rate 80 /min Ketan Moffett DO Work Phone: [facility] 07-22-2023 09:52-0400 Respiratory rate 16 /min Ketan Moffett DO Work Phone: [facility] 07-22-2023 09:52-0400 Systolic blood pressure 100 mm[Hg] Ketan Moffett DO Work Phone: [facility] 04-13-2023 11:08-0500 Body height 166 cm Ketan Moffett DO Work Phone: [facility] 04-13-2023 11:08-0500 Body temperature 97.11 [degF] Ketan Moffett DO Work Phone: [facility] 04-13-2023 11:08-0500 Body weight 92.08 kg Ketan Moffett DO Work Phone: [facility] 04-13-2023 11:08-0500 Diastolic blood pressure 60 mm[Hg] Ketan Moffett DO Work Phone: [facility] 04-13-2023 11:08-0500 Heart rate 80 /min Ketan Moffett DO Work Phone: [facility] 04-13-2023 11:08-0500 Respiratory rate 16 /min Ketan Moffett DO Work Phone: [facility] 04-13-2023 11:08-0500 Systolic blood pressure 100 mm[Hg] Ketan Moffett DO Work Phone: [facility] 01-21-2023 18:36-0500 Body temperature 97 [degF] Ketan Moffett DO Work Phone: [facility] 01-21-2023 18:36-0500 Body weight 92.53 kg Ketan Moffett DO Work Phone: [facility] 01-21-2023 18:36-0500 Diastolic blood pressure 76 mm[Hg] Ketan Moffett DO Work Phone: [facility] 01-21-2023 18:36-0500 Heart rate 80 /min Ketan Moffett DO Work Phone: [facility] 01-21-2023 18:36-0500 Respiratory rate 16 /min Ketan Moffett DO Work Phone: [facility] 01-21-2023 18:36-0500 Systolic blood pressure 116 mm[Hg] Ketan Moffett DO Work Phone: [facility] 10-08-2022 13:38-0400 Body height 167.6 cm Abel Chou MD Work Phone: [facility] 10-08-2022 13:38-0400 Body weight 89.81 kg Abel Chou MD Work Phone: [facility] 10-08-2022 13:38-0400 Diastolic blood pressure 70 mm[Hg] Abel Chou MD Work Phone: [facility] 10-08-2022 13:38-0400 Systolic blood pressure 118 mm[Hg] Abel Chou MD Work Phone: [facility] 10-07-2022 10:38-0400 Body height 167.6 cm Ketan Moffett DO Work Phone: [facility] 10-07-2022 10:38-0400 Body weight 90.27 kg Ketan Moffett DO Work Phone: [facility] 10-07-2022 10:38-0400 Diastolic blood pressure 70 mm[Hg] Ketan Moffett DO Work Phone: [facility] 10-07-2022 10:38-0400 Heart rate 80 /min Ketan Moffett DO Work Phone: [facility] 10-07-2022 10:38-0400 Respiratory rate 16 /min Ketan Moffett DO Work Phone: [facility] 10-07-2022 10:38-0400 Systolic blood pressure 112 mm[Hg] Ketan Moffett DO Work Phone: [facility] 09-19-2022 12:55-0400 Body weight 90.27 kg Humaira Podlogar MATCH MARKER.BOWLING ALLEY OPERATOR Work Phone: [facility] 09-19-2022 12:55-0400 Diastolic blood pressure 76 mm[Hg] Humaira Podlogar MATCH MARKER.BOWLING ALLEY OPERATOR Work Phone: [facility] 09-19-2022 12:55-0400 Heart rate 85 /min Humaira Podlogar MATCH MARKER.BOWLING ALLEY OPERATOR Work Phone: [facility] 09-19-2022 12:55-0400 Respiratory rate 16 /min Humaira Podlogar MATCH MARKER.BOWLING ALLEY OPERATOR Work Phone: [facility] 09-19-2022 12:55-0400 SaO2% (BldA) [Mass fraction] 98 % Humaira Podlogar MATCH MARKER.BOWLING ALLEY OPERATOR Work Phone: [facility] 09-19-2022 12:55-0400 Systolic blood pressure 118 mm[Hg] Humaira Podlogar MATCH MARKER.BOWLING ALLEY OPERATOR Work Phone: [facility] 05-06-2022 15:52-0400 Body temperature 98.4 [degF] Ketan Moffett DO Work Phone: [facility] 05-06-2022 15:52-0400 Body weight 89.81 kg Ketan Moffett DO Work Phone: [facility] 05-06-2022 15:52-0400 Diastolic blood pressure 80 mm[Hg] Ketan Moffett DO Work Phone: [facility] 05-06-2022 15:52-0400 Heart rate 88 /min Ketan Moffett DO Work Phone: [facility] 05-06-2022 15:52-0400 Respiratory rate 16 /min Ketan Moffett DO Work Phone: [facility] 05-06-2022 15:52-0400 Systolic blood pressure 136 mm[Hg] Ketan Moffett DO Work Phone: [facility] 12-09-2021 16:02-0400 Body weight 88 kg Nurse Wstr Work Phone: [facility] 12-09-2021 16:02-0400 Diastolic blood pressure 76 mm[Hg] Nurse Wstr Work Phone: [facility] 12-09-2021 16:02-0400 Systolic blood pressure 106 mm[Hg] Nurse Wstr Work Phone: [facility] 10-08-2021 09:24-0400 Body height 167.6 cm Abel Chou MD Work Phone: [facility] 10-08-2021 09:24-0400 Body weight 88 kg Abel Chou MD Work Phone: [facility] 10-08-2021 09:24-0400 Diastolic blood pressure 74 mm[Hg] Abel Chou MD Work Phone: [facility] 10-08-2021 09:24-0400 Systolic blood pressure 116 mm[Hg] Abel Chou MD Work Phone: [facility] 07-05-2021 13:38-0400 Body height 167.6 cm Easton Wiggins MD Work Phone: [facility] 07-05-2021 13:38-0400 Body weight 85.28 kg Easton Wiggins MD Work Phone: [facility] 07-05-2021 13:38-0400 Diastolic blood pressure 70 mm[Hg] Easton Wiggins MD Work Phone: [facility] 07-05-2021 13:38-0400 Systolic blood pressure 112 mm[Hg] Easton Wiggins MD Work Phone: [facility] 05-23-2021 10:16-0400 Body height 167.6 cm Pacc 6 Work Phone: [facility] 05-23-2021 10:16-0400 Body temperature 98.49 [degF] Pacc 6 Work Phone: [facility] 05-23-2021 10:16-0400 Body weight 86.27 kg Pacc 6 Work Phone: [facility] 05-23-2021 10:16-0400 Diastolic blood pressure 83 mm[Hg] Pacc 6 Work Phone: [facility] 05-23-2021 10:16-0400 Heart rate 108 /min Pacc 6 Work Phone: [facility] 05-23-2021 10:16-0400 SaO2% (BldA) [Mass fraction] 99 % Pac 6 Work Phone: [facility] 05-23-2021 10:16-0400 Systolic blood pressure 135 mm[Hg] Pac 6 Work Phone: [facility] 05-23-2021 09:06-0400 Body weight 86.64 kg Yaritza Chandelr MATCH MARKER.BOWLING ALLEY OPERATOR Work Phone: [facility] 05-23-2021 09:06-0400 Diastolic blood pressure 70 mm[Hg] Yaritza Chandler MATCH MARKER.BOWLING ALLEY OPERATOR Work Phone: [facility] 05-23-2021 09:06-0400 Systolic blood pressure 114 mm[Hg] Yaritza Chandler MATCH MARKER.BOWLING ALLEY OPERATOR Work Phone: [facility] 05-23-2021 08:01-0400 Body height 167.6 cm Nurse Event Sales Representative Work Phone: [facility] 05-23-2021 08:01-0400 Body weight 86.82 kg Nurse Event Sales Representative Work Phone: [facility] 05-23-2021 08:01-0400 Diastolic blood pressure 70 mm[Hg] Nurse Event Sales Representative Work Phone: [facility] 05-23-2021 08:01-0400 Systolic blood pressure 114 mm[Hg] Nurse Event Sales Representative Work Phone: [facility] Encounters Encounter Date Encounter Type Care Provider Facility Start: 07-04-2024 End: 07-04-2024 Refill Ketan Moffett DO Work Phone: [facility] [place] Comment on above: Refill Request; Medi cation Problem Headache, worsening (Primary Dx); Situational depression; Situational anxiety; Attention deficit disorder (ADD) without hyperactivity; Other migraine without status migrainosus, not intractable; Subclinical hypothyroidism; Fatigue, unspecified type; Vitamin D deficiency; Iron deficiency; Hyperlipidemia, mixed; Perimenopausal; Hyperglycemia Start: 05-10-2024 End: 05-10-2024 ambulatory ABEL CHOU Facility:[facility] Start: 05-10-2024 End: 05-10-2024 Subsequent hospital visit by physician [facility] Mob 2 Work Phone: Radiology Comment on above: Abnormal mammogram [ R92.8] Start: 05-05-2024 End: 05-05-2024 Refill Ketan John Moffett DO Work Phone: [facility] [place] Comment on above: Refill Request Start: 03-31-2024 End: 04-01-2024 Refill Aebl Chou MD Work Phone: OB/Gynecology Comment on above: Refill Request Start: 03-18-2024 End: 03-18-2024 Orders Only Abel Chou MD Work Phone: Mammogram Comment on above: Abnormal mammogram ( Primary Dx) Start: 03-17-2024 End: 03-17-2024 ambulatory KETAN John MOFFETT Facility:[facility] Start: 03-17-2024 End: 03-17-2024 Subsequent hospital visit by physician Screen Mammo [facility] Mammogram Comment on above: Encounter for screen ing mammogram for breast cancer [Z12.31] Start: 03-09-2024 End: 03-09-2024 Refill Ketan L Moffett DO Work Phone: [facility] [place] Comment on above: Refill Request Start: 03-08-2024 End: 03-09-2024 ambulatory Ketan L Moffett DO Work Phone: [facility] [place] Comment on above: Levothyroxine Start: 01-18-2024 End: 01-18-2024 Refill Ketan L Moffett DO Work Phone: [facility] [place] Comment on above: Refill Request Start: 12-25-2023 End: 12-28-2023 Telephone encounter Ketan Moffett DO Work Phone: [facility] [place] Comment on above: PA for CT of Brain Start: 12-15-2023 End: 12-15-2023 ambulatory KETAN MOFFETT Facility:[facility] Start: 12-15-2023 End: 12-15-2023 Patient encounter procedure Sharron Rosario OD Work Phone: Ophthalmology Comment on above: Headache behind the eyes Start: 12-11-2023 End: 12-11-2023 ambulatory KETAN MOFFETT Facility:[facility] Start: 12-11-2023 End: 12-11-2023 Patient encounter procedure Ketan Moffett DO Work Phone: [facility] [place] Comment on above: Attention deficit di sorder (ADD) without hyperactivity (Primary Dx); Headache behind the eyes; Subclinical hypothyroidism; Fatigue, unspecified type; Situational anxiety Start: 12-03-2023 End: 12-03-2023 ambulatory ABEL CHOU Facility:[facility] Start: 12-03-2023 End: 12-03-2023 Patient encounter procedure Abel Chou MD Work Phone: OB/Gynecology Comment on above: Encounter for gyneco logical examination (general) (routine) without abnormal findings (Primary Dx); Encounter for screening mammogram for breast cancer; Need for influenza vaccination; Need for COVID-19 vaccine Start: 12-03-2023 End: 12-03-2023 Patient encounter status Abel Chou MD Work Phone: [facility] Start: 10-23-2023 End: 10-23-2023 ambulatory KETAN MOFFETT Facility:[facility] Start: 10-23-2023 End: 10-23-2023 Patient encounter procedure Ketan Moffett DO Work Phone: [facility] [place] Comment on above: Headache, worsening (Primary Dx); Attention deficit disorder (ADD) without hyperactivity; Subclinical hypothyroidism; Fatigue, unspecified type; Chronic insomnia Start: 10-16-2023 End: 10-16-2023 ambulatory KETAN MOFFETT Facility:[facility] Start: 10-15-2023 End: 10-15-2023 Refill Abel Chou MD Work Phone: OB/Gynecology Comment on above: Refill Request Start: 07-22-2023 End: 07-22-2023 ambulatory KETAN MOFFETT Facility:[facility] Start: 07-22-2023 End: 07-22-2023 Patient encounter procedure Ketan Moffett DO Work Phone: [facility] [place] Comment on above: Subclinical hypothyr oidism (Primary Dx); Attention deficit disorder (ADD) without hyperactivity; Dyslipidemia Start: 07-08-2023 Refill Narciso manley MATCH MARKER.BOWLING ALLEY OPERATOR Work Phone: [facility] [place] Comment on above: Refill Request Start: 04-23-2023 Telephone encounter Ketan moore DO Work Phone: [facility] [place] Start: 04-13-2023 End: 04-13-2023 Patient encounter procedure Ketan Moffett DO Work Phone: [facility] [place] Comment on above: Well adult exam (Radha joshua Dx); Vitamin D deficiency; Subclinical hypothyroidism; Impaired concentration; CRP elevated; Dyslipidemia; Situational anxiety Start: 04-13-2023 End: 04-13-2023 Patient encounter status Ketan Moffett DO Work Phone: [facility] Work Phone: Start: 01-21-2023 End: 01-21-2023 Patient encounter procedure Ketan Moffett DO Work Phone: [facility] [place] Comment on above: Snoring (Primary Dx) ; Need for influenza vaccination; Hypersomnolence; Fatigue, unspecified type; Need for COVID-19 vaccine; Subclinical hypothyroidism; Iron deficiency; Situational anxiety; Impaired concentration Start: 12-30-2022 Refill Narciso manley MATCH MARKER.BOWLING ALLEY OPERATOR Work Phone: [facility] [place] Comment on above: Refill Request Start: 12-11-2022 Telephone encounter Colleen quinn MATCH MARKER.BOWLING ALLEY OPERATOR Work Phone: [facility] [place] Start: 10-24-2022 Telephone encounter Ketan moore DO Work Phone: [facility] [place] Comment on above: Results Start: 10-08-2022 End: 10-08-2022 Patient encounter procedure Abel Chou MD Work Phone: OB/Gynecology Comment on above: Encounter for gyneco logical examination (general) (routine) without abnormal findings (Primary Dx); Encounter for surveillance of contraceptive pills Start: 10-08-2022 End: 10-08-2022 Patient encounter status Abel Chou MD Work Phone: [facility] Start: 10-07-2022 End: 10-07-2022 Patient encounter procedure Ketan Moffett DO Work Phone: [facility] [place] Comment on above: Elevated TSH (Primar y Dx); Iron deficiency; Elevated lymphocyte count; Fatigue, unspecified type; Cold intolerance; Dry skin; Brittle nails; Sleep disorder Start: 09-19-2022 End: 09-19-2022 Patient encounter procedure Humaira Hurtado MATCH MARKER.BOWLING ALLEY OPERATOR Work Phone: [facility] [place] Comment on above: Sleeping difficultie s (Primary Dx); Fatigue, unspecified type; Restless legs; Hyperlipidemia, mixed Start: 05-06-2022 End: 05-06-2022 Patient encounter procedure Ketan Moffett DO Work Phone: [facility] [place] Comment on above: Situational depressi on (Primary Dx); Situational anxiety; Concentration deficit Start: 04-11-2022 End: 04-11-2022 Nursing evaluation of patient and report Nurse Overhead Cleaner [facility] Work Phone: OB/Gynecology Comment on above: Need for prophylacti c vaccination/inoculation against viral disease (Primary Dx) Start: 12-09-2021 End: 12-09-2021 Nursing evaluation of patient and report Nurse Overhead Cleaner [facility] Work Phone: OB/Gynecology Comment on above: Need for prophylacti c vaccination/inoculation against viral disease (Primary Dx) Start: 10-08-2021 End: 10-08-2021 Patient encounter procedure Abel Chou MD Work Phone: OB/Gynecology Comment on above: Encounter for gyneco logical examination (general) (routine) without abnormal findings (Primary Dx); Pelvic pain in female; Hematosalpinx; Need for prophylactic vaccination/inoculation against viral disease Start: 10-08-2021 End: 10-08-2021 Patient encounter status Abel Chou MD Work Phone: OB/Gynecology Start: 07-05-2021 End: 07-05-2021 Patient encounter procedure Easton Wiggins MD Work Phone: Gynecology Comment on above: Postoperative state (Primary Dx) Start: 06-28-2021 Refill Vivi Carolyn MATCH MARKER.BOWLING ALLEY OPERATOR Work Phone: Gynecology Comment on above: Refill Request Start: 06-19-2021 End: 06-19-2021 ambulatory Yaritza Ramesh HEATONN.BOWLING ALLEY OPERATOR Work Phone: Gynecology Comment on above: Postoperative state (Primary Dx) Start: 06-19-2021 End: 06-19-2021 Telemedicine consultation with patient Yaritza Chandler MATCH MARKER.BOWLING ALLEY OPERATOR Work Phone: [facility] Start: 05-23-2021 End: 05-23-2021 Admission to establishment Pacc Main 6 Work Phone: [facility] Start: 05-23-2021 End: 05-23-2021 Manual pelvic examination Pacc Main 6 Work Phone: Pre Anesthesia Comment on above: Pre-op evaluation (P rimary Dx); Chronic pelvic pain in female Start: 05-23-2021 End: 05-23-2021 Preprocedural examination done Pac Main 6 Work Phone: Pre Anesthesia Start: 05-23-2021 End: 05-23-2021 Patient encounter procedure Easton Wiggins MD Work Phone: Gynecology Comment on above: Pelvic pain in femal e (Primary Dx); Hematosalpinx examinatio n or test, negative result (Primary Dx) Start: 05-23-2021 End: 05-23-2021 Nursing evaluation of patient and report Nurse Event Sales Representative Work Phone: Gynecology Comment on above: Educational circumst ances (Primary Dx) Start: 01-31-2021 End: 01-31-2021 Subsequent hospital visit by physician [facility] 1 (I-Stat/1.5t) Work Phone: Radiology Comment on above: Pelvic and perineal pain [R10.2] Start: 01-22-2018 Patient encounter status Nurse Event Sales Representative Work Phone: [facility] Work Phone: Procedures Date Procedure Procedure Detail Performing Clinician Start: 05-10-2024 Us breast uni real t elva with image limited Abel Chou MD Work Phone: Start: 03-17-2024 Screening digital br east tomosynthesis bi Abel Chou MD Work Phone: Start: 12-15-2023 Visual field xm uni/ bi w/interp extended exam Sharron Rosario OD Work Phone: Start: 12-03-2023 PFIZER-BIONTECH COVI D-19 VACCINE AGE 12+ YR (COMIRNATY) Abel Chou MD Work Phone: Start: 01-21-2023 PFIZER-BIONTECH COVI D-19 VACCINE (2022- SEASON) AGE 12+ YR Ketan Moffett DO Work Phone: Start: 01-21-2023 INFLUENZA VACCINE, A GE 6 MO - 64 YR, QUADRIVALENT (AFLURIA, FLULAVAL, FLUZONE) Ketan Moffett DO Work Phone: Start: 01-31-2021 Mri pelvis w/o & w/c ontrast material Narciso Hickey APRN.[employer] OPERATOR Work Phone: Plan of Treatment Date Care Activity Detail Author Start: 12-26-2030 Urine microalbumin profile [facility] Start: 07-04-2025 Annual PCP Team Chronic Disease Visit Annual PCP Team Chronic Disease Visit [facility] Start: 03-17-2025 Screening for malignant neoplasm of breast Mammogram Screening [facility] Start: 01-04-2025 End: 01-04-2025 Patient encounter procedure 01/04/2025 10:00 AM EST Office Visit [facility] [address] [place] [address] Ketan Moffett, DO [address] [place] [address] Physical Family [facility] Comment on above: Physical Start: 12-15-2024 End: 12-15-2024 Patient encounter procedure 12/15/2024 9:45 AM EDT Office Visit [facility] [address] [place] [address] Sharron Rosario, OD [address] [place] [address] 1 YR F/U for headache follow-up Ophthalmology Comment on above: 1 YR F/U for headache follow-up Start: 12-10-2024 Annual PCP Team Chronic Disease Visit Annual PCP Team Chronic Disease Visit [facility] Start: 11-15-2024 End: 11-15-2024 Patient encounter procedure 11/15/2024 8:00 AM EDT Appointment Mammogram [address] [place] [address] lt breast 6mo Mammogram Comment on above: lt breast 6mo Start: 10-22-2024 Annual PCP Team Chronic Disease Visit Annual PCP Team Chronic Disease Visit [facility] Start: 10-04-2024 End: 01-03-2025 25-hydroxyvitamin D3 [Mass/volume] in Serum or Plasma VITAMIN D 25 HYDROXY Lab Routine Vitamin D deficiency Expected: 10/04/2024, Expires: 01/03/2025 [facility] Comment on above: Expected: 10/04/2024, Expires: Start: 10-04-2024 End: 01-03-2025 C reactive protein [Mass/volume] in Serum or Plasma C-REACTIVE PROTEIN Lab Routine Hyperglycemia Expected: 10/04/2024, Expires: 01/03/2025 [facility] Comment on above: Expected: 10/04/2024, Expires: Start: 10-04-2024 End: 01-03-2025 CBC panel - Blood by Automated count COMPLETE BLOOD COUNT Lab Routine Fatigue, unspecified type Expected: 10/04/2024, Expires: 01/03/2025 [facility] Comment on above: Expected: 10/04/2024, Expires: Start: 10-04-2024 End: 01-03-2025 Cobalamin (Vitamin B12) [Mass/volume] in Serum or Plasma VITAMIN B12 Lab Routine Fatigue, unspecified type Expected: 10/04/2024, Expires: 01/03/2025 [facility] Comment on above: Expected: 10/04/2024, Expires: Start: 10-04-2024 End: 01-03-2025 Comprehensive metabolic 2000 panel - Serum or Plasma COMPREHENSIVE METABOLIC PANEL Lab Routine Fatigue, unspecified type Expected: 10/04/2024, Expires: 01/03/2025 [facility] Comment on above: Expected: 10/04/2024, Expires: Start: 10-04-2024 End: 01-03-2025 Follitropin [Units/volume] in Serum or Plasma FOLLICLE STIMULATING HORMONE Lab Routine Perimenopausal Expected: 10/04/2024, Expires: 01/03/2025 [facility] Comment on above: Expected: 10/04/2024, Expires: Start: 10-04-2024 End: 01-03-2025 Hemoglobin A1c in Blood HEMOGLOBIN A1C Lab Routine Hyperglycemia Expected: 10/04/2024, Expires: 01/03/2025 [facility] Comment on above: Expected: 10/04/2024, Expires: Start: 10-04-2024 End: 01-03-2025 Insulin [Units/volume] in Serum or Plasma INSULIN, TOTAL, SERUM Lab Routine Hyperglycemia Expected: 10/04/2024, Expires: 01/03/2025 [facility] Comment on above: Expected: 10/04/2024, Expires: Start: 10-04-2024 End: 01-03-2025 Lipid 1996 panel - Serum or Plasma LIPID PANEL, FASTING Lab Routine Hyperlipidemia, mixed Expected: 10/04/2024, Expires: 01/03/2025 [facility] Comment on above: Expected: 10/04/2024, Expires: Start: 10-04-2024 End: 01-03-2025 Thyrotropin [Units/volume] in Serum or Plasma THYROID STIMULATING HORMONE Lab Routine Subclinical hypothyroidism Expected: 10/04/2024, Expires: 01/03/2025 [facility] Comment on above: Expected: 10/04/2024, Expires: Start: 10-04-2024 End: 01-03-2025 Thyroxine (T4) free [Mass/volume] in Serum or Plasma T4 FREE/FREE THYROXINE Lab Routine Subclinical hypothyroidism Expected: 10/04/2024, Expires: 01/03/2025 [facility] Comment on above: Expected: 10/04/2024, Expires: Start: 07-21-2024 Annual PCP Team Chronic Disease Visit Annual PCP Team Chronic Disease Visit [facility] Start: 05-10-2024 End: 05-10-2024 Patient encounter procedure 05/10/2024 8:30 AM EDT Appointment Radiology [address] [place] [address] lt breast us callback per rs Radiology Comment on above: lt breast us callback per rs Start: 04-25-2024 HPV TESTING HPV TESTING [facility] Start: 04-25-2024 PAP TESTING PAP TESTING [facility] Start: 04-25-2024 Screening for malignant neoplasm of cervix [facility] Start: 04-13-2024 Annual PCP Team Chronic Disease Visit Annual PCP Team Chronic Disease Visit [facility] Start: 03-17-2024 End: 03-17-2024 Patient encounter procedure 03/17/2024 9:30 AM EST Appointment Mammogram [address] [place] [address] Mammogram Start: 2024 Screening for malignant neoplasm of breast Mammogram Screening [facility] Start: 01-22-2024 Annual PCP Team Chronic Disease Visit Annual PCP Team Chronic Disease Visit [facility] Start: 01-11-2024 End: 01-11-2024 Patient encounter procedure 01/11/2024 2:00 PM EST Appointment Cat Scan [address] [place] [address] Headache behind the eyes [R51.9] Cat Scan Comment on above: Headache behind the eyes [R51.9] Start: 12-21-2023 End: 12-21-2023 Patient encounter procedure 12/21/2023 10:00 AM EST Office Visit Family [facility] [address] [place] [address] Ketan Moffett, DO [address] [place] [address] 6 week follow up [facility] Comment on above: 6 week follow up Start: 12-03-2023 End: 12-03-2023 Patient encounter procedure 12/03/2023 8:40 AM EDT Office Visit OB/Gynecology [address] [place] [address] Abel Chou MD [address] [place] [address] Annual Exam OB/Gynecology Comment on above: Annual Exam Start: 10-23-2023 End: 10-23-2023 Patient encounter procedure 10/23/2023 10:00 AM EDT Office Visit Family [facility] [address] [place] [address] Ketan Moffett, DO [address] [place] [address] 3 month follow up [facility] Comment on above: 3 month follow up Start: 10-22-2023 End: 01-21-2024 Lipid 1996 panel - Serum or Plasma LIPID PANEL BASIC Lab Routine Dyslipidemia Expected: 10/22/2023, Expires: 01/21/2024 [facility] Comment on above: Expected: 10/22/2023, Expires: Start: 10-22-2023 End: 01-21-2024 Thyrotropin [Units/volume] in Serum or Plasma THYROID STIMULATING HORMONE Lab Routine Subclinical hypothyroidism Expected: 10/22/2023, Expires: 01/21/2024 [facility] Comment on above: Expected: 10/22/2023, Expires: Start: 10-22-2023 End: 01-21-2024 Thyroxine (T4) free [Mass/volume] in Serum or Plasma T4 FREE/FREE THYROXINE Lab Routine Subclinical hypothyroidism Expected: 10/22/2023, Expires: 01/21/2024 [facility] Comment on above: Expected: 10/22/2023, Expires: Start: 10-22-2023 End: 01-21-2024 Triiodothyronine (T3) Free [Mass/volume] in Serum or Plasma T3, FREE Lab Routine Subclinical hypothyroidism Expected: 10/22/2023, Expires: 01/21/2024 [facility] Comment on above: Expected: 10/22/2023, Expires: Start: 10-18-2023 [facility] Start: 10-16-2023 End: 10-16-2023 ambulatory 10/16/2023 9:00 AM EDT Results Only [facility] [address] [place] [address] [facility] Start: 10-12-2023 End: 01-11-2024 Lipid 1996 panel - Serum or Plasma LIPID PANEL BASIC Lab Routine Dyslipidemia Expected: 10/12/2023, Expires: 01/11/2024 [facility] Work Phone: Comment on above: Expected: 10/12/2023, Expires: Start: 10-08-2023 ANNUAL PCP TEAM CHRONIC DISEASE VISIT ANNUAL PCP TEAM CHRONIC DISEASE VISIT [facility] Start: 07-22-2023 End: 10-21-2023 Thyrotropin [Units/volume] in Serum or Plasma THYROID STIMULATING HORMONE Lab Routine Subclinical hypothyroidism Expected: 07/22/2023, Expires: 10/21/2023 [facility] Work Phone: Comment on above: Expected: 07/22/2023, Expires: Start: 07-22-2023 End: 10-21-2023 Thyroxine (T4) free [Mass/volume] in Serum or Plasma T4 FREE/FREE THYROXINE Lab Routine Subclinical hypothyroidism Expected: 07/22/2023, Expires: 10/21/2023 [facility] Comment on above: Expected: 07/22/2023, Expires: Start: 07-22-2023 End: 10-21-2023 Triiodothyronine (T3) Free [Mass/volume] in Serum or Plasma T3, FREE Lab Routine Subclinical hypothyroidism Expected: 07/22/2023, Expires: 10/21/2023 [facility] Comment on above: Expected: 07/22/2023, Expires: Start: 07-22-2023 End: 07-22-2023 Patient encounter procedure 07/22/2023 10:00 AM EDT Office Visit [facility] [address] [facility] [place], [place] [address] Ketan Moffett DO [address] [facility] [place] [address] 3 month follow up [facility] Comment on above: 3 month follow up Start: 04-13-2023 End: 07-13-2023 25-hydroxyvitamin D3 [Mass/volume] in Serum or Plasma VITAMIN D 25 HYDROXY Lab Routine Vitamin D deficiency Expected: 04/13/2023, Expires: 07/13/2023 [facility] Work Phone: Comment on above: Expected: 04/13/2023, Expires: Start: 04-13-2023 End: 07-13-2023 C reactive protein [Mass/volume] in Serum or Plasma C-REACTIVE PROTEIN (CRP) Lab Routine CRP elevated Expected: 04/13/2023, Expires: 07/13/2023 [facility] Work Phone: Comment on above: Expected: 04/13/2023, Expires: Start: 04-13-2023 End: 07-13-2023 CBC W Auto Differential panel - Blood CBC + DIFF Lab Routine CRP elevated Expected: 04/13/2023, Expires: 07/13/2023 [facility] Work Phone: Comment on above: Expected: 04/13/2023, Expires: Start: 04-13-2023 End: 07-13-2023 Comprehensive metabolic 2000 panel - Serum or Plasma COMP METABOLIC PANEL Lab Routine CRP elevated Expected: 04/13/2023, Expires: 07/13/2023 [facility] Work Phone: Comment on above: Expected: 04/13/2023, Expires: Start: 04-13-2023 End: 07-13-2023 Erythrocyte sedimentation rate SED RATE WESTERGREN Lab Routine CRP elevated Expected: 04/13/2023, Expires: 07/13/2023 [facility] Work Phone: Comment on above: Expected: 04/13/2023, Expires: Start: 01-21-2023 End: 04-22-2023 Cobalamin (Vitamin B12) [Mass/volume] in Serum or Plasma VITAMIN B12 BLOOD Lab Routine Fatigue, unspecified type Expected: 01/21/2023, Expires: 04/22/2023 [facility] Work Phone: Comment on above: Expected: 01/21/2023, Expires: Start: 01-21-2023 End: 04-22-2023 Ferritin [Mass/volume] in Serum or Plasma FERRITIN BLD Lab Routine Fatigue, unspecified type Iron deficiency Expected: 01/21/2023, Expires: 04/22/2023 [facility] Work Phone: Comment on above: Expected: 01/21/2023, Expires: Start: 01-21-2023 End: 04-22-2023 Folate [Mass/volume] in Serum or Plasma FOLATE SERUM Lab Routine Iron deficiency Expected: 01/21/2023, Expires: 04/22/2023 [facility] Work Phone: Comment on above: Expected: 01/21/2023, Expires: Start: 01-21-2023 End: 04-22-2023 Iron and Iron binding capacity panel - Serum or Plasma IRON + TIBC Lab Routine Fatigue, unspecified type Iron deficiency Expected: 01/21/2023, Expires: 04/22/2023 [facility] Work Phone: Comment on above: Expected: 01/21/2023, Expires: Start: 01-21-2023 End: 04-22-2023 Thyrotropin [Units/volume] in Serum or Plasma TSH BLD Lab Routine Subclinical hypothyroidism Expected: 01/21/2023, Expires: 04/22/2023 [facility] Work Phone: Comment on above: Expected: 01/21/2023, Expires: Start: 01-21-2023 End: 04-22-2023 Thyroxine (T4) free [Mass/volume] in Serum or Plasma T4 FREE/FREE THYROX Lab Routine Subclinical hypothyroidism Expected: 01/21/2023, Expires: 04/22/2023 [facility] Work Phone: Comment on above: Expected: 01/21/2023, Expires: Start: 01-21-2023 End: 04-22-2023 Triiodothyronine (T3) Free [Mass/volume] in Serum or Plasma T3 FREE BLD Lab Routine Subclinical hypothyroidism Expected: 01/21/2023, Expires: 04/22/2023 [facility] Work Phone: Comment on above: Expected: 01/21/2023, Expires: 4 Start: 01-11-2023 End: 04-12-2023 Thyrotropin [Units/volume] in Serum or Plasma TSH BLD Lab Routine Subclinical hypothyroidism Expected: 01/11/2023, Expires: 04/12/2023 [facility] Work Phone: Comment on above: Expected: 01/11/2023, Expires: Start: 01-11-2023 End: 04-12-2023 Thyroxine (T4) free [Mass/volume] in Serum or Plasma T4 FREE/FREE THYROX Lab Routine Subclinical hypothyroidism Expected: 01/11/2023, Expires: 04/12/2023 [facility] Work Phone: Comment on above: Expected: 01/11/2023, Expires: 4 Start: 01-11-2023 End: 04-12-2023 Triiodothyronine (T3) [Mass/volume] in Serum or Plasma T3 BLD Lab Routine Subclinical hypothyroidism Expected: 01/11/2023, Expires: 04/12/2023 [facility] Work Phone: Comment on above: Expected: 01/11/2023, Expires: 4 Start: 11-23-2022 End: 01-23-2023 Thyrotropin [Units/volume] in Serum or Plasma TSH BLD Lab Routine Subclinical hypothyroidism Expected: 11/23/2022, Expires: 01/23/2023 [facility] Work Phone: Comment on above: Expected: 11/23/2022, Expires: 3 Start: 11-23-2022 End: 01-23-2023 Triiodothyronine (T3) [Mass/volume] in Serum or Plasma T3 BLD Lab Routine Subclinical hypothyroidism Expected: 11/23/2022, Expires: 01/23/2023 [facility] Work Phone: Comment on above: Expected: 11/23/2022, Expires: 3 Start: 10-24-2022 End: 12-24-2022 Thyroxine (T4) free [Mass/volume] in Serum or Plasma T4 FREE/FREE THYROX Lab Routine Subclinical hypothyroidism Expected: 10/24/2022, Expires: 12/24/2022 [facility] Work Phone: Comment on above: Expected: 10/24/2022, Expires: 3 Start: 10-21-2022 End: 12-21-2022 C reactive protein [Mass/volume] in Serum or Plasma C-REACTIVE PROTEIN (CRP) Lab Routine Elevated TSH Expected: 10/21/2022, Expires: 12/21/2022 [facility] Work Phone: Comment on above: Expected: 10/21/2022, Expires: 3 Start: 10-21-2022 End: 12-21-2022 CBC W Auto Differential panel - Blood CBC + DIFF Lab Routine Elevated lymphocyte count Expected: 10/21/2022, Expires: 12/21/2022 [facility] Work Phone: Comment on above: Expected: 10/21/2022, Expires: 3 Start: 10-21-2022 End: 12-21-2022 Erythrocyte sedimentation rate SED RATE WESTERGREN Lab Routine Elevated TSH Expected: 10/21/2022, Expires: 12/21/2022 [facility] Work Phone: Comment on above: Expected: 10/21/2022, Expires: 3 Start: 10-21-2022 End: 12-21-2022 Thyroglobulin Ab [Units/volume] in Serum or Plasma THYROGLOBULIN AB Lab Routine Elevated TSH Expected: 10/21/2022, Expires: 12/21/2022 [facility] Work Phone: Comment on above: Expected: 10/21/2022, Expires: 3 Start: 10-21-2022 End: 12-21-2022 THYROID PEROXIDASE ANTIBODY BLOOD THYROID PEROXIDASE ANTIBODY BLOOD Lab Routine Elevated TSH Expected: 10/21/2022, Expires: 12/21/2022 [facility] Work Phone: Comment on above: Expected: 10/21/2022, Expires: 3 Start: 10-21-2022 End: 12-21-2022 Thyrotropin [Units/volume] in Serum or Plasma TSH BLD Lab Routine Elevated TSH Expected: 10/21/2022, Expires: 12/21/2022 [facility] Work Phone: Comment on above: Expected: 10/21/2022, Expires: 3 Start: 10-21-2022 End: 12-21-2022 Thyroxine (T4) free [Mass/volume] in Serum or Plasma T4 FREE/FREE THYROX Lab Routine Elevated TSH Expected: 10/21/2022, Expires: 12/21/2022 [facility] Work Phone: Comment on above: Expected: 10/21/2022, Expires: Start: 10-21-2022 End: 12-21-2022 Triiodothyronine (T3) Free [Mass/volume] in Serum or Plasma T3 FREE BLD Lab Routine Elevated TSH Expected: 10/21/2022, Expires: 12/21/2022 [facility] Work Phone: Comment on above: Expected: 10/21/2022, Expires: 3 Start: 10-17-2022 Covid-19 Vaccine () Covid-19 Vaccine () [facility] Start: 10-17-2022 Influenza vaccination [facility] Start: 10-08-2022 End: 12-08-2022 Microscopic observation [Identifier] in Vaginal fluid by Gram stain [facility] Work Phone: Comment on above: Expected: 10/08/2022, Expires: 3 Start: 09-19-2022 End: 11-19-2022 CBC W Auto Differential panel - Blood CBC + DIFF Lab Routine Fatigue, unspecified type Restless legs Expected: 09/19/2022, Expires: 11/19/2022 [facility] Work Phone: Comment on above: Expected: 09/19/2022, Expires: Start: 09-19-2022 End: 11-19-2022 Comprehensive metabolic 2000 panel - Serum or Plasma COMP METABOLIC PANEL Lab Routine Fatigue, unspecified type Expected: 09/19/2022, Expires: 11/19/2022 [facility] Work Phone: Comment on above: Expected: 09/19/2022, Expires: 3 Start: 09-19-2022 End: 11-19-2022 Ferritin [Mass/volume] in Serum or Plasma FERRITIN BLD Lab Routine Fatigue, unspecified type Restless legs Expected: 09/19/2022, Expires: 11/19/2022 [facility] Work Phone: Comment on above: Expected: 09/19/2022, Expires: Start: 09-19-2022 End: 11-19-2022 Iron and Iron binding capacity panel - Serum or Plasma IRON + TIBC Lab Routine Fatigue, unspecified type Restless legs Expected: 09/19/2022, Expires: 11/19/2022 [facility] Work Phone: Comment on above: Expected: 09/19/2022, Expires: Start: 09-19-2022 End: 11-19-2022 Lipid 1996 panel - Serum or Plasma LIPID PANEL BASIC Lab Routine Hyperlipidemia, mixed Expected: 09/19/2022, Expires: 11/19/2022 [facility] Work Phone: Comment on above: Expected: 09/19/2022, Expires: Start: 09-19-2022 End: 11-19-2022 Thyrotropin [Units/volume] in Serum or Plasma TSH BLD Lab Routine Fatigue, unspecified type Expected: 09/19/2022, Expires: 11/19/2022 [facility] Work Phone: Comment on above: Expected: 09/19/2022, Expires: Start: 04-06-2022 9vhpv vacc 2/3 dose sched im use HUMAN PAPILLOMAVIRUS 9-VALENT HPV IM Immunization/Injection Routine Need for prophylactic vaccination/inoculation against viral disease Expected: 04/06/2022 (Approximate) [facility] Work Phone: Comment on above: Expected: 04/06/2022 (Approximate) Start: 12-07-2021 9vhpv vacc 2/3 dose sched im use HUMAN PAPILLOMAVIRUS 9-VALENT HPV IM Immunization/Injection Routine Need for prophylactic vaccination/inoculation against viral disease Expected: 12/07/2021 (Approximate) [facility] Work Phone: Comment on above: Expected: 12/07/2021 (Approximate) Start: 10-17-2021 Influenza vaccination INFLUENZA (#1) [facility] Start: 05-23-2021 End: 07-23-2021 CONFIRM BLOOD TYPE [facility] Work Phone: Comment on above: Expected: 05/23/2021, Expires: Start: 03-22-2021 COVID-19 VACCINE (4 - Booster for Moderna series) COVID-19 VACCINE (4 - Booster for Moderna series) [facility] Start: 03-22-2021 COVID-19 VACCINE (4 - Moderna series) COVID-19 VACCINE (4 - Moderna series) [facility] Start: 2003 Hepatitis B Vaccine (1 of 3 - 19+ 3-dose series) Hepatitis B Vaccine (1 of 3 - 19+ 3-dose series) [facility] Start: 2002 HEPATITIS C SCREENING HEPATITIS C SCREENING [facility] Start: 2002 Hepatitis C screening Hepatitis C Screening [facility] Start: 2002 HIV SCREENING HIV SCREENING [facility] Start: 2002 HIV screening HIV Screening [facility] Start: 1984 HEPATITIS B (1 of 3 - 3-dose series) HEPATITIS B (1 of 3 - 3-dose series) [facility] Start: 1984 Hepatitis B Vaccine (1 of 3 - 3-dose series) Hepatitis B Vaccine (1 of 3 - 3-dose series) [facility] 25-hydroxyvitamin D3 [Mass/volume] in Serum or Plasma VITAMIN D 25 HYDROXY Lab Routine Vitamin D deficiency 04/21/2023 9:01 AM [facility] Work Phone: C reactive protein [Mass/volume] in Serum or Plasma C-REACTIVE PROTEIN (CRP) Lab Routine CRP elevated 04/21/2023 9:01 AM [facility] Work Phone: CBC W Auto Different ial panel - Blood CBC + DIFF Lab Routine CRP elevated 04/21/2023 9:01 AM [facility] Work Phone: Cobalamin (Vitamin B 12) [Mass/volume] in Serum or Plasma VITAMIN B12 BLOOD Lab Routine Fatigue, unspecified type 01/22/2023 7:53 AM [facility] Work Phone: Comprehensive metabo lic 2000 panel - Serum or Plasma COMP METABOLIC PANEL Lab Routine CRP elevated 04/21/2023 9:01 AM [facility] Work Phone: End: 01-09-2025 CT Head WO contrast CT BRAIN WO IVCON Radiology Routine Headache behind the eyes 1 Occurrences starting 12/11/2023 until 01/09/2025 [facility] Work Phone: Comment on above: 1 Occurrences starting 12/11/2023 until 01/09/2025 End: 01-01-2025 DBT Breast - bilateral screening WYATT SCREENING W KEREN Radiology Routine Encounter for screening mammogram for breast cancer 1 Occurrences starting 12/03/2023 until 01/01/2025 [facility] Work Phone: Comment on above: 1 Occurrences starting 12/03/2023 until 01/01/2025 Erythrocyte sediment ation rate SED RATE WESTERGREN Lab Routine CRP elevated 04/21/2023 9:01 AM [facility] Work Phone: Ferritin [Mass/volum e] in Serum or Plasma FERRITIN BLD Lab Routine Fatigue, unspecified type Iron deficiency 01/22/2023 7:53 AM [facility] Work Phone: Folate [Mass/volume] in Serum or Plasma FOLATE SERUM Lab Routine Iron deficiency 01/22/2023 7:53 AM [facility] Work Phone: End: 01-21-2024 HOME SLEEP APNEA TEST (HSAT) HOME SLEEP APNEA TEST (HSAT) Procedures Routine Snoring Hypersomnolence Fatigue, unspecified type 1 Occurrences starting 01/21/2023 until 01/21/2024 [facility] Work Phone: Comment on above: 1 Occurrences starting 01/21/2023 until 01/21/2024 Iron and Iron bindin g capacity panel - Serum or Plasma IRON + TIBC Lab Routine Fatigue, unspecified type Iron deficiency 01/22/2023 7:53 AM [facility] Work Phone: End: 04-17-2025 MG Breast - left Diagnostic for implant WYATT DIAGNOSTIC LEFT Radiology Routine Abnormal mammogram 1 Occurrences starting 03/18/2024 until 04/17/2025 [facility] Work Phone: Comment on above: 1 Occurrences starting 03/18/2024 until 04/17/2025 Ther px 1/> areas ea ch 15 minutes massage MASSAGE THERAPY Procedures Routine Headache, worsening Ordered: 07/04/2024 [facility] Work Phone: Comment on above: Ordered: 07/04/2024 Therapeutic prophylactic/dx injection subq/im THER/PROPH/DIAG INJ, SC/IM Procedures Routine Need for prophylactic vaccination/inoculation against viral disease Ordered: 10/08/2021 [facility] Work Phone: Comment on above: Ordered: 10/08/2021 End: 04-17-2025 US Breast - left limited US BREAST LTD LEFT Radiology Routine Abnormal mammogram 1 Occurrences starting 03/18/2024 until 04/17/2025 [facility] Comment on above: 1 Occurrences starting 03/18/2024 until 04/17/2025 [facility] Immunizations Immunization Date Immunization Notes Care Provider [facility] 12-03-2023 COVID-19 vaccine, ag e 12+ yr ([employer] [facility]) Abel Chou MD Work Phone: [facility] 12-03-2023 influenza, seasonal, injectable Abel Chou MD Work Phone: [facility] 01-21-2023 COVID-19 vaccine, ag e 12+ yr, season ([employer]) Ketan Moffett DO Work Phone: [facility] Work Phone: 01-21-2023 influenza, injectabl e, quadrivalent, contains preservative Ketan Moffett DO Work Phone: [facility] Work Phone: 01-21-2023 influenza virus vacc ine, unspecified formulation Abel Chou MD Work Phone: [facility] 02-24-2023 Human Papillomavirus 9-valent vaccine Nurse Wstr Work Phone: [facility] Work Phone: 02-19-2022 influenza, injectabl e, quadrivalent, contains preservative Nurse Wstr Work Phone: [facility] Work Phone: 02-19-2022 influenza virus vacc ine, unspecified formulation Colleen Vizcaino MATCH MARKER.BOWLING ALLEY OPERATOR Work Phone: [facility] 12-09-2021 Human Papillomavirus 9-valent vaccine Nurse Wstr Work Phone: [facility] Work Phone: 10-08-2021 Human Papillomavirus 9-valent vaccine bAel Chou MD Work Phone: [facility] 12-26-2020 influenza, injectabl e, quadrivalent, contains preservative Nurse Event Sales Representative Work Phone: [facility] 12-26-2020 tetanus toxoid, redu hannah diphtheria toxoid, and acellular pertussis vaccine, adsorbed Nurse Event Sales Representative Work Phone: [facility] 11-18-2019 influenza, injectabl e, quadrivalent, contains preservative Nurse Event Sales Representative Work Phone: [facility] Work Phone: 02-15-2019 influenza, injectabl e, quadrivalent, contains preservative Nurse Event Sales Representative Work Phone: [facility] Work Phone: 01-22-2018 influenza, injectabl e, quadrivalent, contains preservative Nurse Event Sales Representative Work Phone: [facility] Work Phone: 12-16-2016 influenza, injectabl e, quadrivalent, preservative free Nurse Event Sales Representative Work Phone: [facility] 12-16-2016 influenza, seasonal, injectable Nurse Event Sales Representative Work Phone: [facility] Work Phone: 11-28-2014 influenza, seasonal, injectable, preservative free Nurse Event Sales Representative Work Phone: [facility] Payers Date Payer Category Payer Medicaid [id number] 2022 Medicaid [id number] 2022 Private Health Insurance [employer] [place] [id number] 2022-Present [address] [address] [place] [address] Medicaid [id number] 2018 Unknown MMO MMO [employer] [id number] 2018-Present [phone] [address] [place] [address] PPO [id number] 2018 Unknown [id number] Social History Date Type Detail Facility Start: 02-19-2022 Tobacco smoking status NHIS Never smoked tobacco [facility] Work Phone: Start: 05-23-2021 End: 07-05-2021 Alcohol intake Ex-drinker (finding) [facility] Start: 04-26-2019 End: 02-18-2022 History SDOH Alcohol Frequency 2 [facility] Start: 04-26-2019 End: 02-18-2022 History SDOH Alcohol Std Drinks 1 [facility] Start: 02-13-2019 End: 11-18-2019 History SDOH Social Connections Phone 4 [facility] Start: 02-13-2019 End: 02-18-2022 History SDOH Social Connections Living 7 [facility] Start: 04-26-2019 End: 02-18-2022 History SDOH Financial 5 [facility] Start: 02-12-2019 Education 17 [facility] Start: 1985 Sex Assigned At Not on file [facility] Start: 12-09-2020 End: 12-09-2021 Exposure to SARS-CoV-2 (event) Not sure [facility] Start: 10-08-2021 End: 07-04-2024 Alcohol intake Current drinker of alcohol (finding) [facility] Start: 10-08-2021 History SDOH Alcohol Comment seldom [facility] Start: 02-19-2022 Tobacco use and exposure Smokeless tobacco non-user [facility] Work Phone: Start: 02-18-2022 History SDOH Alcohol Frequency 3 [facility] Start: 02-17-2022 End: 09-19-2022 History of Social function [facility] Start: 02-17-2022 End: 09-19-2022 Social connection and isolation panel [facility] Do you belong to any clubs or organizations such as orthodoxy groups, eyetoks, [employer] or athletic groups, or school groups? No [facility] Are you now , , , , never or living with a partner? Never [facility] How often to you hav e a drink containing alcohol? 2-4 times a month [facility] How many standard dr inks containing alcohol do you have on a typical day? 1 or 2 [facility] How often do you hav e 6 or more drinks on 1 occasion? Never [facility] How hard is it for y ou to pay for the very basics like food, housing, medical care, and heating Not hard at all [facility] Do you feel stress - tense, restless, nervous, or anxious, or unable to sleep at night because your mind is troubled all the time - these days [OSQ] Only a little [facility] (I/We) worried wheth er (my/our) food would run out before (I/we) got money to buy more. Never true [facility] How often to you hav e a drink containing alcohol? Monthly or less [facility] Do you feel stress - tense, restless, nervous, or anxious, or unable to sleep at night because your mind is troubled all the time - these days [OSQ] Rather much [facility] Start: 12-04-2016 Alcohol Comment Occasionally [facility] How often do you hav e 6 or more drinks on 1 occasion? Less than monthly [facility] Do you belong to any clubs or organizations such as orthodoxy groups, unions, [employer] or athletic groups, or school groups? Yes [facility] Do you feel stress - tense, restless, nervous, or anxious, or unable to sleep at night because your mind is troubled all the time - these days [OSQ] To some extent [facility] Functional Status Date Assessment Result Facility 01-20-2014 Are you deaf, or do you have serious difficulty hearing No 01/20/2014 8:55 AM Gloria García LPN No [facility] 01-20-2014 Are you blind, or do you have serious difficulty seeing, even when wearing glasses No 01/20/2014 8:55 AM Gloria García LPN No [facility] 01-20-2014 Do you have serious difficulty walking or climbing stairs No 01/20/2014 8:55 AM Gloria García LPN No [facility] 01-20-2014 Do you have difficul ty dressing or bathing No 01/20/2014 8:55 AM Gloria García LPN No [facility] 01-20-2014 Because of a physica l, mental, or emotional condition, do you have difficulty doing errands alone such as visiting a physician's office or shopping No 01/20/2014 8:55 AM Gloria García LPN No [facility] Mental Status Date Assessment Result Facility 01-20-2014 Because of a physica l, mental, or emotional condition, do you have serious difficulty concentrating, remembering, or making decisions No 01/20/2014 8:55 AM Gloria García LPN No [facility] Clinical Notes 01-31-2021 to 07-04-2024 Ketan Moffett DO - 07/04/2024 5:14 PM EDTTelephone Encounter - Brandon Adame RN - 07/04/2024 4:43 PM EDTTelephone Encounter - Brandon Adame RN - 07/04/2024 4:43 PM EDTPatient Instructions Note Date & Type Note Facility 07-04-2024 Note HNO ID: [id number] Author: KETAN MOFFETT DO Service: ? Author Type: Physician Type: Progress Notes Filed: 07/04/2024 17:20 Note Text: CC: Oneyda Mao is a 39 year old female who presents to the office for follow up HPI: Headaches, 2-3 days a week, up to 6-7/10 on pain scale. These are improved but not resolved. She doesn't have a known history of vision deficits but she is concerned about this as a potential trigger to he headache symptoms. She thinks there are hormonal triggers to her symptoms- unsure what medication she can take to help treat the migraine ADD. 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 Taking zoloft as prescribed. Subclinical hypothyroidism PAST MEDICAL HISTORY Diagnosis Date Genital warts Hypercholesteremia 03/19/2015 LGSIL (low grade squamous intraepithelial dysplasia) 02/17/2008 Subclinical hypothyroidism 10/2022 PAST SURGICAL HISTORY Procedure Laterality Date PAST SURGICAL HISTORY OF 2007? laser treatment to genital warts PAST SURGICAL HISTORY OF 06/05/2021 laparoscopic excision fo endometriosis, right ureterlysis VAGINOSCOPY 02/17/2008 Current Outpatient Medications Medication Sig sertraline (ZOLOFT) 50 mg tablet Take 1 tablet by mouth daily with dinner. lisdexamfetamine (VYVANSE) 30 mg capsule Take 1 capsule by mouth once daily for 30 days. [START ON 09/02/2024] lisdexamfetamine (VYVANSE) 30 mg capsule Take 1 capsule by mouth once daily for 30 days. Patient should start on September 02, 2024. rizatriptan (MAXALT-NANOTECHNOLOGY ENGINEERING TECHNOLOGIST) 10 mg disintegrating tablet Take 1 tablet by mouth as needed for migraine headache (see administration instructions). at onset of headache. May repeat after 2 hours. Do not exceed 30 mg per day. SUMAtriptan (IMITREX) 20 mg/actuation nasal spray Use 1 spray in the nose as needed for migraine headache (see administration instructions). May repeat dose after 2 hours if needed. Maximum daily dose is 40 mg per day. [START ON 08/04/2024] lisdexamfetamine (VYVANSE) 30 mg capsule Take 1 capsule by mouth once daily for 30 days. In the morning Patient should start on August 04, 2024. Magnesium Gluconate 27.5 mg magne- sium (500 mg) tab Take 1 tablet by mouth once daily. Cholecalciferol, Vitamin D3, 50 mcg (2,000 unit) cap Take 1 capsule by mouth once daily. L-Norgest and E Estradiol-E Estrad (SEASONIQUE) 0.15 mg-30 mcg (84)/10 mcg (7) Take 1 tablet by mouth once daily. levothyroxine (LEVOXYL) 50 mcg tablet Take 1 tablet by mouth once daily. Take on empty stomach. For Thyroid riboflavin, vitamin B2, (VITAMIN B2) 100 mg tab Take 4 tablets by mouth once daily. No current facility-administered medications for this visit. ALLERGIES No Known Allergies Social History Tobacco Use Smoking status: Never Smokeless tobacco: Never Vaping Use Vaping status: Never Used Substance Use Topics Alcohol use: Yes Comment: seldom Drug use: Never ROS: See HPI PE: BP 104/70 Pulse 80 Temp (Src) 98 (Left Tympanic) Resp 12 Wt 187 lb (84.8kg) LMP 04/11/2024 Gen: AANDOX3, NAD, non-toxic appearing HEENT: PERRLA, EOMs intact b/l, nares without drainage, pharynx without erythema, exudate, lesions, or drainage. Uvula midline. Neck: No LAD, no thyromegaly, no meningismus. CV: RRR, no murmur Lungs: CTA b/l, no wheezing Skin: No rashes, lesions, or wounds on exposed skin. Non focal neurologic examination No edema, normal pulses PDMP website checked and validated. All prescriptions have been APPROPRIATELY filled. No suspicious activity was identified. 07/04/2024 by Ketan Moffett DO ASSESSMENT/PLAN: 1. 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 Situational depression - ICD9: 309.0, ICD10: F43.21 rx refilled Symptoms are stable and well controlled. - SERTRALINE 50 MG TABLET 3. Situational anxiety - ICD9: 300.09, ICD10: F41.8 rx refilled Symptoms are stable and well controlled. - SERTRALINE 50 MG TABLET 4. Attention deficit disorder (ADD) without hyperactivity - ICD9: 314.00, ICD10: F98.8 Stable, rx refilled. - LISDEXAMFETAMINE 30 MG CAPSULE - LISDEXAMFETAMINE 30 MG CAPSULE - LISDEXAMFETAMINE 30 MG CAPSULE 5. Other migraine without status migrainosus, not intractable - ICD9: 346.80, ICD10: G43.809 Add on prn triptan for migraine headaches Consider massage therapy - continue ostomy care nurse Ketan Moffett DO Return if no improvement. Follow up with Ketan Moffett DO. To ER if develops chest pain, shortness of breath. Discussed risks, benefits, alternatives, and potential side effects of medications. Patient/Guardian expressed understanding (more content not included)... [facility] 07-04-2024 History of Present illness Narrative CC: Oneyda Mao is a 39 year old female who presents to the office for follow up HPI: Headaches, 2-3 days a week, up to 6-7/10 on pain scale. These are improved but not resolved. She doesn't have a known history of vision deficits but she is concerned about this as a potential trigger to he headache symptoms. She thinks there are hormonal triggers to her symptoms- unsure what medication she can take to help treat the migraine ADD. 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 Taking zoloft as prescribed. Subclinical hypothyroidism PAST MEDICAL HISTORY Diagnosis Date Genital warts Hypercholesteremia 03/19/2015 LGSIL (low grade squamous intraepithelial dysplasia) 02/17/2008 Subclinical hypothyroidism 10/2022 PAST SURGICAL HISTORY Procedure Laterality Date PAST SURGICAL HISTORY OF 2007? laser treatment to genital warts PAST SURGICAL HISTORY OF 06/05/2021 laparoscopic excision fo endometriosis, right ureterlysis VAGINOSCOPY 02/17/2008 Current Outpatient Medications Medication Sig sertraline (ZOLOFT) 50 mg tablet Take 1 tablet by mouth daily with dinner. lisdexamfetamine (VYVANSE) 30 mg capsule Take 1 capsule by mouth once daily for 30 days. [START ON 09/02/2024] lisdexamfetamine (VYVANSE) 30 mg capsule Take 1 capsule by mouth once daily for 30 days. Patient should start on September 02, 2024. rizatriptan (MAXALT-NANOTECHNOLOGY ENGINEERING TECHNOLOGIST) 10 mg disintegrating tablet Take 1 tablet by mouth as needed for migraine headache (see administration instructions). at onset of headache. May repeat after 2 hours. Do not exceed 30 mg per day. SUMAtriptan (IMITREX) 20 mg/actuation nasal spray Use 1 spray in the nose as needed for migraine headache (see administration instructions). May repeat dose after 2 hours if needed. Maximum daily dose is 40 mg per day. [START ON 08/04/2024] lisdexamfetamine (VYVANSE) 30 mg capsule Take 1 capsule by mouth once daily for 30 days. In the morning Patient should start on August 04, 2024. Magnesium Gluconate 27.5 mg magne- sium (500 mg) tab Take 1 tablet by mouth once daily. Cholecalciferol, Vitamin D3, 50 mcg (2,000 unit) cap Take 1 capsule by mouth once daily. L-Norgest and E Estradiol-E Estrad (SEASONIQUE) 0.15 mg-30 mcg (84)/10 mcg (7) Take 1 tablet by mouth once daily. levothyroxine (LEVOXYL) 50 mcg tablet Take 1 tablet by mouth once daily. Take on empty stomach. For Thyroid riboflavin, vitamin B2, (VITAMIN B2) 100 mg tab Take 4 tablets by mouth once daily. No current facility-administered medications for this visit. ALLERGIES No Known Allergies Social History Tobacco Use Smoking status: Never Smokeless tobacco: Never Vaping Use Vaping status: Never Used Substance Use Topics Alcohol use: Yes Comment: seldom Drug use: Never ROS: See HPI PE: BP 104/70 Pulse 80 Temp (Src) 98 (Left Tympanic) Resp 12 Wt 187 lb (84.8kg) LMP 04/11/2024 Gen: A&OX3, NAD, non-toxic appearing HEENT: PERRLA, EOMs intact b/l, nares without drainage, pharynx without erythema, exudate, lesions, or drainage. Uvula midline. Neck: No LAD, no thyromegaly, no meningismus. CV: RRR, no murmur Lungs: CTA b/l, no wheezing Skin: No rashes, lesions, or wounds on exposed skin. Non focal neurologic examination No edema, normal pulses PDMP website checked and validated. All prescriptions have been APPROPRIATELY filled. No suspicious activity was identified. 07/04/2024 by Ketan Moffett DO ASSESSMENT/PLAN: 1. 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 Situational depression - ICD9: 309.0, ICD10: F43.21 rx refilled Symptoms are stable and well controlled. - SERTRALINE 50 MG TABLET 3. Situational anxiety - ICD9: 300.09, ICD10: F41.8 rx refilled Symptoms are stable and well controlled. - SERTRALINE 50 MG TABLET 4. Attention deficit disorder (ADD) without hyperactivity - ICD9: 314.00, ICD10: F98.8 Stable, rx refilled. - LISDEXAMFETAMINE 30 MG CAPSULE - LISDEXAMFETAMINE 30 MG CAPSULE - LISDEXAMFETAMINE 30 MG CAPSULE 5. Other migraine without status migrainosus, not intractable - ICD9: 346.80, ICD10: G43.809 Add on prn triptan for migraine headaches Consider massage therapy - continue ostomy care nurse Ketan Moffett DO Return if no improvement. Follow up with Ketan Moffett DO. To ER if develops chest pain, shortness of breath. Discussed risks, benefits, alternatives, and potential side effects of medications. Patient/Guardian expressed understanding and agreed with the plan. See patient instructions. Ketan Moffett DO [address] [place] [address] documented in this encounter [facility] 07-04-2024 Telephone encounter Note [facility] pharmacy, reports they received 2 vyvanse Rx's for the same date, 07/04/24. They deleted one of these and asking pcp to send the July Rx. Pended. Last ov: 07/04/24 [facility] 07-04-2024 Miscellaneous Notes [facility] pharmacy, reports they received 2 vyvanse Rx's for the same date, 07/04/24. They deleted one of these and asking pcp to send the July Rx. Pended. Last ov: 07/04/24 documented in this encounter [facility] 05-10-2024 History of Present illness Narrative Radiology Service Progress Note PATIENT NAME: Oneyda Mao DATE OF SERVICE: May 10, 2024 TIME: 9:03 AM PATIENT IDENTITY VERIFICATION COMPLETED USING TWO (2) IDENTIFIERS: Name and Date of confirmed by patient verbally. FALL SCREENING: Has the patient had 2 falls in the last year or 1 fall with injury or currently using an Ambulatory Assistive Device (Walker, Cane, Wheelchair, Crutches, etc.)? No PATIENT GENDER DATA: Assigned female at . status: : No status: NO. PATIENT RELEVANT IMPLANT DATA REVIEWED: Not Applicable PATIENT PRESENTS WITH AN IMPLANTABLE OR ATTACHED SALVAGE MEND WORKER: No RADIOLOGY DEPARTMENT: Ultrasound PERIPHERAL IV DATA: Not applicable SIGNED BY: Loreta Roth RDMS May 10, 2024 9:03 AM documented in this encounter [facility] 05-10-2024 Note HNO ID: [id number] Author: LORETA ROTH RDMS Service: ? Author Type: Hand Fur Cleaner Type: Progress Notes Filed: 05/10/2024 09:03 Note Text: Radiology Service Progress Note PATIENT NAME: Oneyda Mao DATE OF SERVICE: May 10, 2024 TIME: 9:03 AM PATIENT IDENTITY VERIFICATION COMPLETED USING TWO (2) IDENTIFIERS: Name and Date of confirmed by patient verbally. FALL SCREENING: Has the patient had 2 falls in the last year or 1 fall with injury or currently using an Ambulatory Assistive Device (Walker, Cane, Wheelchair, Crutches, etc.)? No PATIENT GENDER DATA: Assigned female at . status: : No status: NO. PATIENT RELEVANT IMPLANT DATA REVIEWED: Not Applicable PATIENT PRESENTS WITH AN IMPLANTABLE OR ATTACHED SALVAGE MEND WORKER: No RADIOLOGY DEPARTMENT: Ultrasound PERIPHERAL IV DATA: Not applicable SIGNED BY: Loreta Roth RDMS May 10, 2024 9:03 AM [facility] 05-05-2024 Telephone encounter Note The following approved medication requests have been transmitted electronically. Requested Prescriptions Signed Prescriptions Disp Refills Magnesium Gluconate 27.5 mg magne- sium (500 mg) tab 90 tablet 1 Sig: Take 1 tablet by mouth once daily. Authorizing Provider: NARCISO HICKEY Cholecalciferol, Vitamin D3, 50 mcg (2,000 unit) cap 90 capsule 1 Sig: Take 1 capsule by mouth once daily. Authorizing Provider: NARCISO HICKEY lisdexamfetamine (VYVANSE) 30 mg capsule 30 capsule 0 Sig: Take 1 capsule by mouth once daily for 30 days. Authorizing Provider: NARCISO HICKEY APRN.CNP PDMP website checked and validated. All prescriptions have been APPROPRIATELY filled. No suspicious activity was identified. 05/05/2024 by Narciso Hickey CNP. [facility] 05-05-2024 Miscellaneous Notes The following approved medication requests have been transmitted electronically. Requested Prescriptions Signed Prescriptions Disp Refills Magnesium Gluconate 27.5 mg magne- sium (500 mg) tab 90 tablet 1 Sig: Take 1 tablet by mouth once daily. Authorizing Provider: NARCISO HICKEY Cholecalciferol, Vitamin D3, 50 mcg (2,000 unit) cap 90 capsule 1 Sig: Take 1 capsule by mouth once daily. Authorizing Provider: NARCISO HICKEY lisdexamfetamine (VYVANSE) 30 mg capsule 30 capsule 0 Sig: Take 1 capsule by mouth once daily for 30 days. Authorizing Provider: NARCISO HICKEY APRN.CNP PDMP website checked and validated. All prescriptions have been APPROPRIATELY filled. No suspicious activity was identified. 05/05/2024 by Narciso Hickey CNP. Prescription Refill Information The patient has been identified by name and date of : Yes Caregiver verified no other encounters exist for this prescription request: Yes Caregiver confirmed with patient/requestor that no other refills are due, in the near future, with this provider at this time: Yes The last office visit in the department: 12/11/23 Does the patient have a future office visit with this provider/department: No Requested Prescriptions Pending Prescriptions Disp Refills Magnesium Gluconate 27.5 mg magne- sium (500 mg) tab 90 tablet 1 Sig: Take 1 tablet by mouth once daily. Cholecalciferol, Vitamin D3, 50 mcg (2,000 unit) cap 90 capsule 1 Sig: Take 1 capsule by mouth once daily. lisdexamfetamine (VYVANSE) 30 mg capsule 30 capsule 0 Sig: Take 1 capsule by mouth once daily for 30 days. Iraida Han LPN May 05, 2024 2:13 PM documented in this encounter [facility] 05-05-2024 Telephone encounter Note Prescription Refill Information The patient has been identified by name and date of : Yes Caregiver verified no other encounters exist for this prescription request: Yes Caregiver confirmed with patient/requestor that no other refills are due, in the near future, with this provider at this time: Yes The last office visit in the department: 12/11/23 Does the patient have a future office visit with this provider/department: No Requested Prescriptions Pending Prescriptions Disp Refills Magnesium Gluconate 27.5 mg magne- sium (500 mg) tab 90 tablet 1 Sig: Take 1 tablet by mouth once daily. Cholecalciferol, Vitamin D3, 50 mcg (2,000 unit) cap 90 capsule 1 Sig: Take 1 capsule by mouth once daily. lisdexamfetamine (VYVANSE) 30 mg capsule 30 capsule 0 Sig: Take 1 capsule by mouth once daily for 30 days. Iraiad Han LPN May 05, 2024 2:13 PM [facility] 03-31-2024 Telephone encounter Note Last OV 12/03/2023. Requested Prescriptions Pending Prescriptions Disp Refills L-Norgest and E Estradiol-E Estrad (SEASONIQUE) 0.15 mg-30 mcg (84)/10 mcg (7) 84 tablet 0 Sig: Take 1 tablet by mouth once daily. Stephany Dodd RN [facility] 03-31-2024 Miscellaneous Notes Last OV 12/03/2023. Requested Prescriptions Pending Prescriptions Disp Refills L-Norgest and E Estradiol-E Estrad (SEASONIQUE) 0.15 mg-30 mcg (84)/10 mcg (7) 84 tablet 0 Sig: Take 1 tablet by mouth once daily. Stephany Dodd RN documented in this encounter [facility] 03-17-2024 Note IMPRESSION: The focal asymmetry in the left breast requires additional evaluation. Diagnostic ultrasound is recommended. BI-RADS Category 0: Incomplete: Needs Additional Imaging Evaluation RISK: Based on the Tyrer-Cuzick (TC) risk assessment model, this patient has a 8.9% lifetime risk of developing breast cancer, meaning they are at average risk for developing breast cancer. However, this is only an estimate based on available history provided on the patient's questionnaire. We encourage all patients to talk with their providers about these results, further recommendations for managing breast health, and appropriate supplemental screening options if the patient has dense breast tissue. Interpreting Radiologist: Avelino Munroe M.D. Electronically signed on: 03/17/2024 Plant Taxonomy Teacher: KHADAR Transcribe Date/Time: Mar 17 2024 9:13A Dictated by: AVELINO MUNROE MD This examination was interpreted and the report reviewed and electronically signed by: AVELINO MUNROE MD on Mar 17 2024 12:09PM EST DIVISION OF RADIOLOGY 03-17-2024 History of Present illness Narrative Radiology Service Progress Note PATIENT NAME: Oneyda Mao DATE OF SERVICE: March 17, 2024 TIME: 9:13 AM PATIENT IDENTITY VERIFICATION COMPLETED USING TWO (2) IDENTIFIERS: Name and Date of confirmed by patient verbally. FALL SCREENING: Has the patient had 2 falls in the last year or 1 fall with injury or currently using an Ambulatory Assistive Device (Walker, Cane, Wheelchair, Crutches, etc.)? No PATIENT GENDER DATA: Assigned female at . status: : No status: NO. PATIENT RELEVANT IMPLANT DATA REVIEWED: Not Applicable PATIENT PRESENTS WITH AN IMPLANTABLE OR ATTACHED SALVAGE MEND WORKER: No RADIOLOGY DEPARTMENT: Mammography PERIPHERAL IV DATA: Not applicable SIGNED BY: Kaushal Cruz March 17, 2024 9:13 AM documented in this encounter [facility] 03-17-2024 Note HNO ID: [id number] Author: JAKE CARR Mammo Tech Service: ? Author Type: Hand Fur Cleaner Type: Progress Notes Filed: 03/17/2024 09:14 Note Text: Radiology Service Progress Note PATIENT NAME: Oneyda Mao DATE OF SERVICE: March 17, 2024 TIME: 9:13 AM PATIENT IDENTITY VERIFICATION COMPLETED USING TWO (2) IDENTIFIERS: Name and Date of confirmed by patient verbally. FALL SCREENING: Has the patient had 2 falls in the last year or 1 fall with injury or currently using an Ambulatory Assistive Device (Walker, Cane, Wheelchair, Crutches, etc.)? No PATIENT GENDER DATA: Assigned female at . status: : No status: NO. PATIENT RELEVANT IMPLANT DATA REVIEWED: Not Applicable PATIENT PRESENTS WITH AN IMPLANTABLE OR ATTACHED SALVAGE MEND WORKER: No RADIOLOGY DEPARTMENT: Mammography PERIPHERAL IV DATA: Not applicable SIGNED BY: Kaushal Cruz March 17, 2024 9:13 AM [facility] 03-09-2024 Telephone encounter Note See refill encounter [facility] 03-09-2024 Telephone encounter Note Images from the original note were not included. Oneyda Mao Wstr Famp My Chart Rx Pool Mo Dr. Moffett, My levothyroxine medication is almost gone and mychart isn't letting me request a refill. Can I please get a refill? [facility] 03-09-2024 Miscellaneous Notes See refill encounter documented in this encounter [facility] 03-09-2024 Miscellaneous Notes Images from the original note were not included. Oneyda Mao Wstr Famp My Chart Rx Pool Mo Dr. Moffett, My levothyroxine medication is almost gone and mychart isn't letting me request a refill. Can I please get a refill? documented in this encounter [facility] 01-18-2024 Telephone encounter Note Prescription Refill Information The patient has been identified by name and date of : Yes Caregiver verified no other encounters exist for this prescription request: Yes Caregiver confirmed with patient/requestor that no other refills are due, in the near future, with this provider at this time: Yes The last office visit in the department: 12/11/23 Does the patient have a future office visit with this provider/department: No Requested Prescriptions Pending Prescriptions Disp Refills sertraline (ZOLOFT) 50 mg tablet 90 tablet 1 Sig: Take 1 tablet by mouth daily with dinner. Yahir Restrepo LPN January 18, 2024 3:37 PM [facility] 01-18-2024 Miscellaneous Notes Prescription Refill Information The patient has been identified by name and date of : Yes Caregiver verified no other encounters exist for this prescription request: Yes Caregiver confirmed with patient/requestor that no other refills are due, in the near future, with this provider at this time: Yes The last office visit in the department: 12/11/23 Does the patient have a future office visit with this provider/department: No Requested Prescriptions Pending Prescriptions Disp Refills sertraline (ZOLOFT) 50 mg tablet 90 tablet 1 Sig: Take 1 tablet by mouth daily with dinner. Yahir Restrepo LPN January 18, 2024 3:37 PM documented in this encounter [facility] 12-28-2023 Telephone encounter Note Patient returned call and scheduled CT Brain for 01/11/24. [facility] 12-28-2023 Miscellaneous Notes Patient returned call and scheduled CT Brain for 01/11/24. 1st attempt: LVM for patient to schedule brain CT Per [facility], Once the CT is scheduled, the referral will drive to our workqueue to be completed in DOS order.. If scheduling could help Pt schedule appointment and let her know this that would be great. Pt called in and reports her insurance needs a PA for the CT of her brain. I send a message to [employer]. Awaiting response on if it is approved or denied. documented in this encounter [facility] 12-28-2023 Telephone encounter Note 1st attempt: LVM for patient to schedule brain CT [facility] 12-25-2023 Telephone encounter Note Per [facility], Once the CT is scheduled, the referral will drive to our workqueue to be completed in DOS order.. If scheduling could help Pt schedule appointment and let her know this that would be great. [facility] 12-25-2023 Telephone encounter Note Pt called in and reports her insurance needs a PA for the CT of her brain. I send a message to [employer]. Awaiting response on if it is approved or denied. [facility] 12-15-2023 Note HNO ID: [id number] Author: SHARRON ROSARIO OD Service: ? Author Type: RUBBER MIXER Type: Progress Notes Filed: 12/15/2023 10:24 Note Text: 1. Headache behind the eyes No ocular health pathology found upon dilated exam Normal visual loredo and color vision No disc edema No glasses needed Recommend continue follow-up with Dr. Moffett and follow-up with me yearly Sharron Rosario OD December 15, 2023 10:22 AM [facility] 12-15-2023 History of Present illness Narrative 1. Headache behind the eyes No ocular health pathology found upon dilated exam Normal visual loredo and color vision No disc edema No glasses needed Recommend continue follow-up with Dr. Moffett and follow-up with me yearly Sharron Rosario OD December 15, 2023 10:22 AM documented in this encounter [facility] 12-15-2023 Note Date of Procedure 12/15/2023. Hand Fur Cleaner Information Tire Worker: BP. Start time: 9:20 AM. Stop time: 9:35 AM. Reliability Right Eye Good. Left Eye Good. Interpretation Right Eye Normal. Left Eye Normal. Interval Change Right Eye Initial. Left Eye Initial. [facility] 12-11-2023 Note HNO ID: [id number] Author: KETAN MOFFETT, DO Service: ? Author Type: Physician Type: Progress Notes Filed: 12/17/2023 09:02 Note Text: CC: Oneyda Mao is a 38 year old female who presents to the office for follow up HPI: Seen in office last 3 months ago on 07/22/23, at that time Mood, she is currently taking zoloft medication as prescribed. She was struggling with impaired concentration and focus, affects her at her job as well as at home and not getting her tasks completed or projects done. This was frustrating to her. No SI or HI. She feels she has lack of ambition and motivation. She was started Adderall XR and this has been increased to 20 mg in the AM. She has noticed several migraine and tension like headaches since she has been taking the medication. Not having these symptoms when not on the medication. Hypothyroidism, taking levothyroxine as prescribed Did travel to [place] in mid June and was having increased sweating while she was there- otherwise did well with travel She was changed to adderall short acting At last OFFICE VISIT on 10/23/23 Mood, she is currently taking zoloft medication as prescribed. She was struggling with impaired concentration and focus, affects her at her job as well as at home and not getting her tasks completed or projects done. This was frustrating to her. No SI or HI. She feels she has lack of ambition and motivation. She was started Adderall XR and this has been increased to 20 mg in the AM. She noticed several migraine and tension like headaches since she has been taking the medication. Not having these symptoms when not on the medication. She was changed to short acting adderall. Still struggling with daily headaches and fatigue, not sleeping well at night. Trouble falling asleep and staying asleep and when she wakes up in the middle of the night then can't fall asleep again. Hypothyroidism, taking levothyroxine as prescribed Fatigue symptoms Currently Headaches, 2-3 days a week, up to 6-7/10 on pain scale. These are improved but not resolved. She doesn't have a known history of vision deficits but she is concerned about this as a potential trigger to he headache symptoms. ADD. 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 No vomiting Subclinical hypothyroidism TSH Date Value Ref Range Status 10/16/2023 2.760 0.270 - 4.200 mIU/L Final Comment: If the patient is , TSH reference range varies by gestational period: First Trimester (weeks 9-12): 0.180-2.990 mIU/L Second Trimester: 0.110-3.980 mIU/L Third Trimester: 0.480-4.710 mIU/L Yan John et al. A Practical Approach for the Verifications and Determination of Site- and Trimester-Specific Reference Intervals for Thyroid Function tests in . Thyroid, 2019:29:3:412-420. Adria Staton et al. 2017 Guidelines of the [place] Thyroid Association for the Diagnosis and Management of Thyroid Disease during and the . Thyroid, 2017:27:3:315-389. PAST MEDICAL HISTORY Diagnosis Date Genital warts Hypercholesteremia 03/19/2015 LGSIL (low grade squamous intraepithelial dysplasia) 02/17/2008 Subclinical hypothyroidism 10/2022 PAST SURGICAL HISTORY Procedure Laterality Date PAST SURGICAL HISTORY OF 2007? laser treatment to genital warts PAST SURGICAL HISTORY OF 06/05/2021 laparoscopic excision fo endometriosis, right ureterlysis VAGINOSCOPY 02/17/2008 Social History: Social History Tobacco Use Smoking status: Never Smokeless tobacco: Never Vaping Use Vaping status: Never Used Substance Use Topics Alcohol use: Yes Comment: seldom Drug use: Never FAMILY HISTORY Problem Relation Age of Onset Hyperlipidemia Father Hypertension Father Arthritis Father Melanoma Father back Thyroid Mother Hypertension Mother Hyperlipidemia Mother Osteoporosis Mother arthritis as well other (Uterine fibroids) Mother No Known Problems Sister Hypertension Brother Lipids Brother Heart Maternal Grandmother other (lupus) Maternal Grandmother Arthritis Maternal Grandfather Hyperlipidemia Maternal Grandfather Macular Degen Paternal Grandmother Heart Paternal Grandfather MD Anesthesia Problems No Family History Current Outpatient prescriptions: lisdexamfetamine (VYVANSE) 30 mg capsule Take 1 capsule by mouth once daily for 30 days. In the morning [START ON 01/11/2024] lisdexamfetamine (VYVANSE) 30 mg capsule Take 1 capsule by mouth once daily for 30 days. Patient should start on January 11, 2024. [START ON 02/08/2024] lisdexamfetamine (VYVANSE) 30 mg capsule Take 1 capsule by mouth once daily for 30 days. Patient should start on February 08, 2024. L-Norgest and E Estradiol-E Estrad (SEASONIQUE) 0.15 mg-30 mcg (84)/10 mcg (7) Take 1 tablet by mouth once daily. riboflavin, vitamin B2, (VITAMIN B2) 100 m (more content not included)... [facility] 12-11-2023 History of Present illness Narrative CC: Oneyda Mao is a 38 year old female who presents to the office for follow up HPI: Seen in office last 3 months ago on 07/22/23, at that time Mood, she is currently taking zoloft medication as prescribed. She was struggling with impaired concentration and focus, affects her at her job as well as at home and not getting her tasks completed or projects done. This was frustrating to her. No SI or HI. She feels she has lack of ambition and motivation. She was started Adderall XR and this has been increased to 20 mg in the AM. She has noticed several migraine and tension like headaches since she has been taking the medication. Not having these symptoms when not on the medication. Hypothyroidism, taking levothyroxine as prescribed Did travel to [place] in mid June and was having increased sweating while she was there- otherwise did well with travel She was changed to adderall short acting At last OFFICE VISIT on 10/23/23 Mood, she is currently taking zoloft medication as prescribed. She was struggling with impaired concentration and focus, affects her at her job as well as at home and not getting her tasks completed or projects done. This was frustrating to her. No SI or HI. She feels she has lack of ambition and motivation. She was started Adderall XR and this has been increased to 20 mg in the AM. She noticed several migraine and tension like headaches since she has been taking the medication. Not having these symptoms when not on the medication. She was changed to short acting adderall. Still struggling with daily headaches and fatigue, not sleeping well at night. Trouble falling asleep and staying asleep and when she wakes up in the middle of the night then can't fall asleep again. Hypothyroidism, taking levothyroxine as prescribed Fatigue symptoms Currently Headaches, 2-3 days a week, up to 6-7/10 on pain scale. These are improved but not resolved. She doesn't have a known history of vision deficits but she is concerned about this as a potential trigger to he headache symptoms. ADD. She feels that the Vyvanse medication that she started 6 weeks ago has been helpful for her ADD symptoms with her job, working at the animal [employer]. No vomiting Subclinical hypothyroidism TSH Date Value Ref Range Status 10/16/2023 2.760 0.270 - 4.200 mIU/L Final Comment: If the patient is , TSH reference range varies by gestational period: First Trimester (weeks 9-12): 0.180-2.990 mIU/L Second Trimester: 0.110-3.980 mIU/L Third Trimester: 0.480-4.710 mIU/L Yan John et al. A Practical Approach for the Verifications and Determination of Site- and Trimester-Specific Reference Intervals for Thyroid Function tests in . Thyroid, 2019:29:3:412-420. Adria Staton, et al. 2017 Guidelines of the [place] Thyroid Association for the Diagnosis and Management of Thyroid Disease during and the . Thyroid, 2017:27:3:315-389. PAST MEDICAL HISTORY Diagnosis Date Genital warts Hypercholesteremia 03/19/2015 LGSIL (low grade squamous intraepithelial dysplasia) 02/17/2008 Subclinical hypothyroidism 10/2022 PAST SURGICAL HISTORY Procedure Laterality Date PAST SURGICAL HISTORY OF 2007? laser treatment to genital warts PAST SURGICAL HISTORY OF 06/05/2021 laparoscopic excision fo endometriosis, right ureterlysis VAGINOSCOPY 02/17/2008 Social History: Social History Tobacco Use Smoking status: Never Smokeless tobacco: Never Vaping Use Vaping status: Never Used Substance Use Topics Alcohol use: Yes Comment: seldom Drug use: Never FAMILY HISTORY Problem Relation Age of Onset Hyperlipidemia Father Hypertension Father Arthritis Father Melanoma Father back Thyroid Mother Hypertension Mother Hyperlipidemia Mother Osteoporosis Mother arthritis as well other (Uterine fibroids) Mother No Known Problems Sister Hypertension Brother Lipids Brother Heart Maternal Grandmother other (lupus) Maternal Grandmother Arthritis Maternal Grandfather Hyperlipidemia Maternal Grandfather Macular Degen Paternal Grandmother Heart Paternal Grandfather MD Anesthesia Problems No Family History Current Outpatient prescriptions: lisdexamfetamine (VYVANSE) 30 mg capsule Take 1 capsule by mouth once daily for 30 days. In the morning [START ON 01/11/2024] lisdexamfetamine (VYVANSE) 30 mg capsule Take 1 capsule by mouth once daily for 30 days. Patient should start on January 11, 2024. [START ON 02/08/2024] lisdexamfetamine (VYVANSE) 30 mg capsule Take 1 capsule by mouth once daily for 30 days. Patient should start on February 08, 2024. L-Norgest and E Estradiol-E Estrad (SEASONIQUE) 0.15 mg-30 mcg (84)/10 mcg (7) Take 1 tablet by mouth once daily. riboflavin, vitamin B2, (VITAMIN B2) 100 mg tab Take 4 tablets by mouth once daily. Magnesium Gluconate 27.5 mg magne- sium (500 mg) tab Take 1 tablet by mouth once daily. Cholecalciferol, Vitamin D3, 50 mcg (2,000 unit) cap Take 1 capsule by mouth once daily. sertraline (ZOLOFT) 50 mg tablet Take 1 tablet by mouth daily with dinner. levothyroxine (LEVOXYL) 50 mcg tablet Take 1 tablet by mouth once daily. Take on empty stomach. For Thyroid Allergies: ALLERGIES No Known Allergies ROS: See HPI PE: 12/11/23 1550 BP: 100/60 Pulse: 80 Resp: 16 Temp: 36.6 C (97.8 F) TempSrc: Left Tympanic Weight: 88 kg (194 lb 0.1 oz) Gen: A&O, NAD, non-toxic appearing, Pleasant, cooperative HEENT: NT/AC, PERRLA, EOMs intact b/l, nares clear and patent b/l, pharynx without erythema, exudate or lesions. Uvula midline. EACs without erythema or debris. TMs pearly norris with intact landmarks b/l. Neck: supple, No cervical LAD, no thyromegaly, no carotid bruits CV: RRR, normal S1 and S2, no murmurs, no gallops, no rubs, Pulses 2+ and symmetric in UE and LE b/l Lungs: normal respiratory effort, CTA b/l, no wheezing or rhonchi or rales Abd: soft, NT, ND, +BS, no hepatosplenomegaly MS: FROM all 4 extremities Neuro: CN II-XII intact b/l, strength 5/5 b/l UE and LE, DTRs 2/4 UE and LE, sensation intact. Non focal exam Gait is stable/normal Skin: warm, dry, intact, No rashes or lesions on exposed skin. ASSESSMENT/PLAN: 1. Attention deficit disorder (ADD) without hyperactivity - ICD9: 314.00, ICD10: F98.8 (primary diagnosis) Stable, continue same medication, no SE - LISDEXAMFETAMINE 30 MG CAPSULE - LISDEXAMFETAMINE 30 MG CAPSULE - LISDEXAMFETAMINE 30 MG CAPSULE 2. Headache behind the eyes - ICD9: 784.0, ICD10: R51.9 Need for full eye exam If symptoms continue to be present, need for brain imaging and follow up with Neurologist. - CONSULT TO OPHTHALMOLOGY - CT BRAIN WO IVCON 3. Subclinical hypothyroidism - ICD9: 244.8, ICD10: E03.8 - Instructed patient on importance of taking on an empty stomach either first thing in the morning or at bedtime. 4. Fatigue, unspecified type - ICD9: 780.79, ICD10: R53.83 stable 5. Situational anxiety - ICD9: 300.09, ICD10: F41.8 See above, stable Ketan Moffett DO To ER if develops chest pain, shortness of breath, or severe worsening of symptoms. Discussed risks, benefits, alternatives, and potential side effects of medications. Patient expressed understanding and agreed with the plan. Ketan Moffett DO [address] [place] [address] documented in this encounter [facility] 12-03-2023 Note HNO ID: [id number] Author: ABEL CHOU MD Service: ? Author Type: Physician Type: Progress Notes Filed: 12/03/2023 09:34 Note Text: Hot Metal Charger offered: Patient declines. Oneyda is a 38 year old who presents for an annual gynecologic exam without complaints. 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 laser treatment to genital warts PAST SURGICAL HISTORY OF 06/05/2021 laparoscopic excision fo endometriosis, right ureterlysis VAGINOSCOPY 02/17/2008 FAMILY HISTORY Problem Relation Age of Onset Thyroid Mother Hypertension Mother Hyperlipidemia Mother Osteoporosis Mother arthritis as well other (Uterine fibroids) Mother Hyperlipidemia Father Hypertension Father Arthritis Father Melanoma Father back Hypertension Brother Lipids Brother Heart Maternal Grandmother other (lupus) Maternal Grandmother Arthritis Maternal Grandfather Hyperlipidemia Maternal Grandfather Heart Paternal Grandfather MD Anesthesia Problems No Family History SOCIAL HISTORY Social History Tobacco Use Smoking status: Never Smokeless tobacco: Never Vaping Use Vaping status: Never Used Substance Use Topics Alcohol use: Yes Comment: seldom Drug use: Never REVIEW OF SYSTEMS Abdomen: No abdominal pain, nausea, vomiting, diarrhea, or constipation. No bloating, early satiety, indigestion, or increased flatulence. Bladder: No dysuria, gross hematuria, urinary frequency, urinary urgency, or incontinence. Breast: No breast lumps, nipple d/c, overlying skin changes, redness or skin retraction. Allergies and current medication updated:Yes SENSITIVE EXAM: The sensitive examination was discussed with the Patient or Patient's Authorized Primary Products Inspectors. As applicable, any other physician, advance practice provider, medical student, or other health professional student that will be observing or involved in the sensitive examination for educational or training purposes was discussed with the Patient or Authorized Primary Products Inspectors. The Patient or Authorized Primary Products Inspectors has agreed to proceed with the sensitive examination. (Sensitive examination includes inspection and/or palpation of the breasts, pelvis, prostate and anorectal regions). EXAM: LMP 07/13/2023 GENERAL: pleasant, female in no apparent distress HEENT: Normocephalic, atraumatic, mucus membranes moist, and no lesions NECK: Supple, full range of motion, no adenopathy, and thyroid normal DERMATOLOGY: Normal, without lesions, non-icteric, and non-hirsute BREAST: soft, non-tender, symmetric, no dominant mass, normal nipple-areolar complex, no lymphadenopathy, and no nipple discharge CHEST: Normal inspiratory effort ABDOMEN: soft, non-tender, and no masses PELVIC: external genitalia normal, normal Bartholin's glands, urethra, Silerton's glands, no vulvar lesions, no cervical lesions, good vaginal support, physiologic discharge present, normal appearing perineal body and perianal region BIMANUAL: uterus normal size, shape and consistency, no adnexal masses, and non-tender RECTOVAGINAL: deferred. NEURO: alert and oriented x3,exam grossly non-focal EXTREMITIES: normal ASSESSMENT/PLAN: 1) Health maintenance: Pap/HPV up to date. Mammogram ordered. 2) Contraception: combined hormonal contraceptives. Contraceptive options reviewed and information provided. 3) STD screening: Declined STD check. 4) Follow up one year or sooner as needed Abel Chou MD [facility] 12-03-2023 History of Present illness Narrative Hot Metal Charger offered: Patient declines. Oneyda is a 38 year old who presents for an annual gynecologic exam without complaints. Started new job at [employer] Menses: rare, light , doing well on pills. 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 laser treatment to genital warts PAST SURGICAL HISTORY OF 06/05/2021 laparoscopic excision fo endometriosis, right ureterlysis VAGINOSCOPY 02/17/2008 FAMILY HISTORY Problem Relation Age of Onset Thyroid Mother Hypertension Mother Hyperlipidemia Mother Osteoporosis Mother arthritis as well other (Uterine fibroids) Mother Hyperlipidemia Father Hypertension Father Arthritis Father Melanoma Father back Hypertension Brother Lipids Brother Heart Maternal Grandmother other (lupus) Maternal Grandmother Arthritis Maternal Grandfather Hyperlipidemia Maternal Grandfather Heart Paternal Grandfather MD Anesthesia Problems No Family History SOCIAL HISTORY Social History Tobacco Use Smoking status: Never Smokeless tobacco: Never Vaping Use Vaping status: Never Used Substance Use Topics Alcohol use: Yes Comment: seldom Drug use: Never REVIEW OF SYSTEMS Abdomen: No abdominal pain, nausea, vomiting, diarrhea, or constipation. No bloating, early satiety, indigestion, or increased flatulence. Bladder: No dysuria, gross hematuria, urinary frequency, urinary urgency, or incontinence. Breast: No breast lumps, nipple d/c, overlying skin changes, redness or skin retraction. Allergies and current medication updated:Yes SENSITIVE EXAM: The sensitive examination was discussed with the Patient or Patient's Authorized Primary Products Inspectors. As applicable, any other physician, advance practice provider, medical student, or other health professional student that will be observing or involved in the sensitive examination for educational or training purposes was discussed with the Patient or Authorized Primary Products Inspectors. The Patient or Authorized Primary Products Inspectors has agreed to proceed with the sensitive examination. (Sensitive examination includes inspection and/or palpation of the breasts, pelvis, prostate and anorectal regions). EXAM: LMP 07/13/2023 GENERAL: pleasant, female in no apparent distress HEENT: Normocephalic, atraumatic, mucus membranes moist, and no lesions NECK: Supple, full range of motion, no adenopathy, and thyroid normal DERMATOLOGY: Normal, without lesions, non-icteric, and non-hirsute BREAST: soft, non-tender, symmetric, no dominant mass, normal nipple-areolar complex, no lymphadenopathy, and no nipple discharge CHEST: Normal inspiratory effort ABDOMEN: soft, non-tender, and no masses PELVIC: external genitalia normal, normal Bartholin's glands, urethra, Silerton's glands, no vulvar lesions, no cervical lesions, good vaginal support, physiologic discharge present, normal appearing perineal body and perianal region BIMANUAL: uterus normal size, shape and consistency, no adnexal masses, and non-tender RECTOVAGINAL: deferred. NEURO: alert and oriented x3,exam grossly non-focal EXTREMITIES: normal ASSESSMENT/PLAN: 1) Health maintenance: Pap/HPV up to date. Mammogram ordered. 2) Contraception: combined hormonal contraceptives. Contraceptive options reviewed and information provided. 3) STD screening: Declined STD check. 4) Follow up one year or sooner as needed Abel Chou MD documented in this encounter [facility] 10-23-2023 Note HNO ID: [id number] Author: KETAN MOFFETT, DO Service: ? Author Type: Physician Type: Progress Notes Filed: 10/23/2023 11:41 Note Text: CC: Oneyda Mao is a 38 year old female who presents to the office for follow up HPI: Seen in office last 3 months ago on 07/22/23, at that time Mood, she is currently taking zoloft medication as prescribed. She was struggling with impaired concentration and focus, affects her at her job as well as at home and not getting her tasks completed or projects done. This was frustrating to her. No SI or HI. She feels she has lack of ambition and motivation. She was started Adderall XR and this has been increased to 20 mg in the AM. She has noticed several migraine and tension like headaches since she has been taking the medication. Not having these symptoms when not on the medication. Hypothyroidism, taking levothyroxine as prescribed Did travel to [place] in mid June and was having increased sweating while she was there- otherwise did well with travel She was changed to adderall short acting Currently Mood, she is currently taking zoloft medication as prescribed. She was struggling with impaired concentration and focus, affects her at her job as well as at home and not getting her tasks completed or projects done. This was frustrating to her. No SI or HI. She feels she has lack of ambition and motivation. She was started Adderall XR and this has been increased to 20 mg in the AM. She noticed several migraine and tension like headaches since she has been taking the medication. Not having these symptoms when not on the medication. She was changed to short acting adderall. Still struggling with daily headaches and fatigue, not sleeping well at night. Trouble falling asleep and staying asleep and when she wakes up in the middle of the night then can't fall asleep again. Hypothyroidism, taking levothyroxine as prescribed Fatigue symptoms PAST MEDICAL HISTORY No date: Genital warts 03/19/2015: Hypercholesteremia 02/17/2008: LGSIL (low grade squamous intraepithelial dysplasia) 10/2022: Subclinical hypothyroidism PAST SURGICAL HISTORY 2007?: PAST SURGICAL HISTORY OF Comment: laser treatment to genital warts 06/05/2021: PAST SURGICAL HISTORY OF Comment: laparoscopic excision fo endometriosis, right ureterlysis 02/17/2008: VAGINOSCOPY Current Outpatient Medications Medication Sig riboflavin, vitamin B2, (VITAMIN B2) 100 mg tab Take 4 tablets by mouth once daily. Magnesium Gluconate 27.5 mg magne- sium (500 mg) tab Take 1 tablet by mouth once daily. Cholecalciferol, Vitamin D3, 50 mcg (2,000 unit) cap Take 1 capsule by mouth once daily. lisdexamfetamine (VYVANSE) 30 mg capsule Take 1 capsule by mouth once daily for 30 days. In the morning L-Norgest and E Estradiol-E Estrad (SEASONIQUE) 0.15 mg-30 mcg (84)/10 mcg (7) Take 1 tablet by mouth once daily. sertraline (ZOLOFT) 50 mg tablet Take 1 tablet by mouth daily with dinner. sertraline (ZOLOFT) 100 mg tablet Take 1 tablet by mouth once daily. levothyroxine (LEVOXYL) 50 mcg tablet Take 1 tablet by mouth once daily. Take on empty stomach. For Thyroid ferrous sulfate (SLOW FE) 140 mg (45 mg iron) TbER Take 1 tablet by mouth once daily. With a meal No current facility-administered medications for this visit. ALLERGIES No Known Allergies Social History Tobacco Use Smoking status: Never Smokeless tobacco: Never Vaping Use Vaping status: Never Used Substance Use Topics Alcohol use: Yes Comment: seldom Drug use: Never ROS: See HPI PE: BP 90/60 Pulse 64 Temp (Src) 97 (Right Tympanic) Resp 16 Wt 199 lb (90.3kg) LMP 07/13/2023 Gen: AANDOX3, NAD, non-toxic appearing. Tearful in the office HEENT: PERRLA, EOMs intact b/l, nares without drainage, pharynx without erythema, exudate, lesions, or drainage. Uvula midline. Neck: No LAD, no thyromegaly, no meningismus. CV: RRR, no murmur Lungs: CTA b/l, no wheezing Skin: No rashes, lesions, or wounds on exposed skin. No edema, normal pulses Non focal neurologic examination ASSESSMENT/PLAN: 1. Headache, worsening - ICD9: 784.0, ICD10: R51.9 (primary diagnosis) Start on supplements Change Adderall short acting to Vyvanse. Likely having having headaches from SE to the Adderall. Change to new medication to see if symptoms improve. Change Zoloft to the AM instead of PM. Consider CT brain and labs if symptoms don't improve. - RIBOFLAVIN (VITAMIN B2) 100 MG TABLET - MAGNESIUM GLUCONATE 27.5 MG MAGNESIUM (500 MG) TABLET - CHOLECALCIFEROL (VITAMIN D3) 50 MCG (2,000 UNIT) CAPSULE 2. Attention deficit disorder (ADD) without hyperactivity - ICD9: 314.00, ICD10: F98.8 Start on supplements Change Adderall short acting to Vyvanse. Likely having having headaches from SE to the Adderall. Change to new medication to see if symptoms improve. Change Zoloft to the AM instead of PM. Consider CT brain and (more content not included)... [facility] 10-23-2023 History of Present illness Narrative CC: Oneyda Mao is a 38 year old female who presents to the office for follow up HPI: Seen in office last 3 months ago on 07/22/23, at that time Mood, she is currently taking zoloft medication as prescribed. She was struggling with impaired concentration and focus, affects her at her job as well as at home and not getting her tasks completed or projects done. This was frustrating to her. No SI or HI. She feels she has lack of ambition and motivation. She was started Adderall XR and this has been increased to 20 mg in the AM. She has noticed several migraine and tension like headaches since she has been taking the medication. Not having these symptoms when not on the medication. Hypothyroidism, taking levothyroxine as prescribed Did travel to [place] in mid June and was having increased sweating while she was there- otherwise did well with travel She was changed to adderall short acting Currently Mood, she is currently taking zoloft medication as prescribed. She was struggling with impaired concentration and focus, affects her at her job as well as at home and not getting her tasks completed or projects done. This was frustrating to her. No SI or HI. She feels she has lack of ambition and motivation. She was started Adderall XR and this has been increased to 20 mg in the AM. She noticed several migraine and tension like headaches since she has been taking the medication. Not having these symptoms when not on the medication. She was changed to short acting adderall. Still struggling with daily headaches and fatigue, not sleeping well at night. Trouble falling asleep and staying asleep and when she wakes up in the middle of the night then can't fall asleep again. Hypothyroidism, taking levothyroxine as prescribed Fatigue symptoms PAST MEDICAL HISTORY No date: Genital warts 03/19/2015: Hypercholesteremia 02/17/2008: LGSIL (low grade squamous intraepithelial dysplasia) 10/2022: Subclinical hypothyroidism PAST SURGICAL HISTORY 2007?: PAST SURGICAL HISTORY OF Comment: laser treatment to genital warts 06/05/2021: PAST SURGICAL HISTORY OF Comment: laparoscopic excision fo endometriosis, right ureterlysis 02/17/2008: VAGINOSCOPY Current Outpatient Medications Medication Sig riboflavin, vitamin B2, (VITAMIN B2) 100 mg tab Take 4 tablets by mouth once daily. Magnesium Gluconate 27.5 mg magne- sium (500 mg) tab Take 1 tablet by mouth once daily. Cholecalciferol, Vitamin D3, 50 mcg (2,000 unit) cap Take 1 capsule by mouth once daily. lisdexamfetamine (VYVANSE) 30 mg capsule Take 1 capsule by mouth once daily for 30 days. In the morning L-Norgest and E Estradiol-E Estrad (SEASONIQUE) 0.15 mg-30 mcg (84)/10 mcg (7) Take 1 tablet by mouth once daily. sertraline (ZOLOFT) 50 mg tablet Take 1 tablet by mouth daily with dinner. sertraline (ZOLOFT) 100 mg tablet Take 1 tablet by mouth once daily. levothyroxine (LEVOXYL) 50 mcg tablet Take 1 tablet by mouth once daily. Take on empty stomach. For Thyroid ferrous sulfate (SLOW FE) 140 mg (45 mg iron) TbER Take 1 tablet by mouth once daily. With a meal No current facility-administered medications for this visit. ALLERGIES No Known Allergies Social History Tobacco Use Smoking status: Never Smokeless tobacco: Never Vaping Use Vaping status: Never Used Substance Use Topics Alcohol use: Yes Comment: seldom Drug use: Never ROS: See HPI PE: BP 90/60 Pulse 64 Temp (Src) 97 (Right Tympanic) Resp 16 Wt 199 lb (90.3kg) LMP 07/13/2023 Gen: A&OX3, NAD, non-toxic appearing. Tearful in the office HEENT: PERRLA, EOMs intact b/l, nares without drainage, pharynx without erythema, exudate, lesions, or drainage. Uvula midline. Neck: No LAD, no thyromegaly, no meningismus. CV: RRR, no murmur Lungs: CTA b/l, no wheezing Skin: No rashes, lesions, or wounds on exposed skin. No edema, normal pulses Non focal neurologic examination ASSESSMENT/PLAN: 1. Headache, worsening - ICD9: 784.0, ICD10: R51.9 (primary diagnosis) Start on supplements Change Adderall short acting to Vyvanse. Likely having having headaches from SE to the Adderall. Change to new medication to see if symptoms improve. Change Zoloft to the AM instead of PM. Consider CT brain and labs if symptoms don't improve. - RIBOFLAVIN (VITAMIN B2) 100 MG TABLET - MAGNESIUM GLUCONATE 27.5 MG MAGNESIUM (500 MG) TABLET - CHOLECALCIFEROL (VITAMIN D3) 50 MCG (2,000 UNIT) CAPSULE 2. Attention deficit disorder (ADD) without hyperactivity - ICD9: 314.00, ICD10: F98.8 Start on supplements Change Adderall short acting to Vyvanse. Likely having having headaches from SE to the Adderall. Change to new medication to see if symptoms improve. Change Zoloft to the AM instead of PM. Consider CT brain and labs if symptoms don't improve. - LISDEXAMFETAMINE 30 MG CAPSULE 3. Subclinical hypothyroidism - ICD9: 244.8, ICD10: E03.8 - Instructed patient on importance of taking on an empty stomach either first thing in the morning or at bedtime. - continue current dose of Synthroid 0.050 mg 4. Fatigue, unspecified type - ICD9: 780.79, ICD10: R53.83 Start on supplements Change Adderall short acting to Vyvanse. Likely having having headaches from SE to the Adderall. Change to new medication to see if symptoms improve. Change Zoloft to the AM instead of PM. Consider CT brain and labs if symptoms don't improve. 5. Chronic insomnia - ICD9: 780.52, ICD10: F51.04 Start on supplements as listed Change Adderall short acting to Vyvanse. Likely having having headaches from SE to the Adderall. Change to new medication to see if symptoms improve. Change Zoloft to the AM instead of PM. Consider CT brain and labs if symptoms don't improve. Ketan Moffett DO Return if no improvement. Follow up with Ketan Moffett DO. To ER if develops chest pain, shortness of breath. Discussed risks, benefits, alternatives, and potential side effects of medications. Patient/Guardian expressed understanding and agreed with the plan. See patient instructions. Ketan Moffett DO [address] [place] [address] documented in this encounter [facility] 10-23-2023 Instructions Ketan Moffett DO - 10/23/2023 10:29 AM EDT Magnesium glycinate or gluconate 400-500 mg in the evening Vitamin D3 at least 2000 international unit(s) a day in the evening Riboflavin 400 mg a day in the evening This can help the headaches and sleep, can take with supper Change the adderall to vyvanse for ADD to take in the AM Change the zoloft to the morning documented in this encounter [facility] 10-15-2023 Telephone encounter Note Refill request received via [employer] [facility] [employer] [facility]. Last seen 10/08/22. Patient has upcoming annual exam on 12/03/23. Jennifer Sagastume RN [facility] 10-15-2023 Miscellaneous Notes Refill request received via [employer]. Last seen 10/08/22. Patient has upcoming annual exam on 12/03/23. Jennifer Sagastume RN documented in this encounter [facility] 07-22-2023 Instructions Ketan Moffett DO - 07/22/2023 10:40 AM EDT Discontinue the Adderall XR Start on short acting adderall- can begin with 1 tablet in the AM when waking up. This can be increased to 1.5 or 2 tablets if needed in the AM. If notice that symptoms start to begin around noon or after, could take another tablet of Adderall - would recommend the afternoon dose be taken before 2 pm if this is going to be used. Update office in a few weeks on how you are doing with the medication- I will refill the medication then if doing well with this Next option would be Vyvanse documented in this encounter [facility] 07-22-2023 Note HNO ID: [id number] Author: KETAN MOFFETT DO Service: ? Author Type: Physician Type: Progress Notes Filed: 07/22/2023 13:05 Note Text: CC: Oneyda Mao is a 38 year old female who presents to the office for follow up HPI: Mood, she is currently taking zoloft medication as prescribed. She was struggling with impaired concentration and focus, affects her at her job as well as at home and not getting her tasks completed or projects done. This was frustrating to her. No SI or HI. She feels she has lack of ambition and motivation. She was started Adderall XR and this has been increased to 20 mg in the AM. She has noticed several migraine and tension like headaches since she has been taking the medication. Not having these symptoms when not on the medication. Hypothyroidism, taking levothyroxine as prescribed Did travel to [place] in mid June and was having increased sweating while she was there- otherwise did well with travel PAST MEDICAL HISTORY Diagnosis Date Genital warts Hypercholesteremia 03/19/2015 LGSIL (low grade squamous intraepithelial dysplasia) 02/17/2008 Subclinical hypothyroidism 10/2022 PAST SURGICAL HISTORY Procedure Laterality Date PAST SURGICAL HISTORY OF 2007? laser treatment to genital warts PAST SURGICAL HISTORY OF 06/05/2021 laparoscopic excision fo endometriosis, right ureterlysis VAGINOSCOPY 02/17/2008 Current Outpatient Medications Medication Sig sertraline (ZOLOFT) 50 mg tablet Take 1 tablet by mouth daily with dinner. amphetamine-dextroamphetamine XR (ADDERALL XR) 20 mg capsule Take 1 capsule by mouth once daily for 30 days. In the morning sertraline (ZOLOFT) 100 mg tablet Take 1 tablet by mouth once daily. levothyroxine (LEVOXYL) 50 mcg tablet Take 1 tablet by mouth once daily. Take on empty stomach. For Thyroid L-Norgest and E Estradiol-E Estrad (SEASONIQUE) 0.15 mg-30 mcg (84)/10 mcg (7) Take 1 tablet by mouth once daily. ferrous sulfate (SLOW FE) 140 mg (45 mg iron) TbER Take 1 tablet by mouth once daily. With a meal No current facility-administered medications for this visit. ALLERGIES No Known Allergies Social History Tobacco Use Smoking status: Never Smokeless tobacco: Never Vaping Use Vaping Use: Never used Substance Use Topics Alcohol use: Yes Comment: seldom Drug use: Never ROS: See HPI PE: BP 100/74 Pulse 80 Temp (Src) 97 (Right Tympanic) Resp 16 Wt 202 lb (91.6kg) LMP 07/13/2023 Gen: AANDOX3, NAD, non-toxic appearing HEENT: PERRLA, EOMs intact b/l, nares without drainage, pharynx without erythema, exudate, lesions, or drainage. Uvula midline. Neck: No LAD, no thyromegaly, no meningismus. CV: RRR, no murmur Lungs: CTA b/l, no wheezing Skin: No rashes, lesions, or wounds on exposed skin. ASSESSMENT/PLAN: 1. Subclinical hypothyroidism - ICD9: 244.8, ICD10: E03.8 (primary diagnosis) - Instructed patient on importance of taking on an empty stomach either first thing in the morning or at bedtime. - continue current dose of Synthroid 0.050 mg - THYROID STIMULATING HORMONE - T4 FREE/FREE THYROXINE - T3, FREE 2. Attention deficit disorder (ADD) without hyperactivity - ICD9: 314.00, ICD10: F98.8 Discontinue Adderall XR formulation of medication- this is causing her migraine/tension headaches. Recommend trial of short acting adderall 10-20 mg in AM and afternoon as needed. If this is givng her SE, then change to generic Vyvanse as d/w her today - DEXTROAMPHETAMINE-AMPHETAMINE 10 MG TABLET Ketan Moffett DO Return if no improvement. Follow up with Ketan Moffett DO. To ER if develops chest pain, shortness of breath. Discussed risks, benefits, alternatives, and potential side effects of medications. Patient/Guardian expressed understanding and agreed with the plan. See patient instructions. Ketan Moffett DO [address] [place] [address] [facility] 07-22-2023 History of Present illness Narrative CC: Oneyda Mao is a 38 year old female who presents to the office for follow up HPI: Mood, she is currently taking zoloft medication as prescribed. She was struggling with impaired concentration and focus, affects her at her job as well as at home and not getting her tasks completed or projects done. This was frustrating to her. No SI or HI. She feels she has lack of ambition and motivation. She was started Adderall XR and this has been increased to 20 mg in the AM. She has noticed several migraine and tension like headaches since she has been taking the medication. Not having these symptoms when not on the medication. Hypothyroidism, taking levothyroxine as prescribed Did travel to [place] in mid June and was having increased sweating while she was there- otherwise did well with travel PAST MEDICAL HISTORY Diagnosis Date Genital warts Hypercholesteremia 03/19/2015 LGSIL (low grade squamous intraepithelial dysplasia) 02/17/2008 Subclinical hypothyroidism 10/2022 PAST SURGICAL HISTORY Procedure Laterality Date PAST SURGICAL HISTORY OF 2007? laser treatment to genital warts PAST SURGICAL HISTORY OF 06/05/2021 laparoscopic excision fo endometriosis, right ureterlysis VAGINOSCOPY 02/17/2008 Current Outpatient Medications Medication Sig sertraline (ZOLOFT) 50 mg tablet Take 1 tablet by mouth daily with dinner. amphetamine-dextroamphetamine XR (ADDERALL XR) 20 mg capsule Take 1 capsule by mouth once daily for 30 days. In the morning sertraline (ZOLOFT) 100 mg tablet Take 1 tablet by mouth once daily. levothyroxine (LEVOXYL) 50 mcg tablet Take 1 tablet by mouth once daily. Take on empty stomach. For Thyroid L-Norgest and E Estradiol-E Estrad (SEASONIQUE) 0.15 mg-30 mcg (84)/10 mcg (7) Take 1 tablet by mouth once daily. ferrous sulfate (SLOW FE) 140 mg (45 mg iron) TbER Take 1 tablet by mouth once daily. With a meal No current facility-administered medications for this visit. ALLERGIES No Known Allergies Social History Tobacco Use Smoking status: Never Smokeless tobacco: Never Vaping Use Vaping Use: Never used Substance Use Topics Alcohol use: Yes Comment: seldom Drug use: Never ROS: See HPI PE: BP 100/74 Pulse 80 Temp (Src) 97 (Right Tympanic) Resp 16 Wt 202 lb (91.6kg) LMP 07/13/2023 Gen: A&OX3, NAD, non-toxic appearing HEENT: PERRLA, EOMs intact b/l, nares without drainage, pharynx without erythema, exudate, lesions, or drainage. Uvula midline. Neck: No LAD, no thyromegaly, no meningismus. CV: RRR, no murmur Lungs: CTA b/l, no wheezing Skin: No rashes, lesions, or wounds on exposed skin. ASSESSMENT/PLAN: 1. Subclinical hypothyroidism - ICD9: 244.8, ICD10: E03.8 (primary diagnosis) - Instructed patient on importance of taking on an empty stomach either first thing in the morning or at bedtime. - continue current dose of Synthroid 0.050 mg - THYROID STIMULATING HORMONE - T4 FREE/FREE THYROXINE - T3, FREE 2. Attention deficit disorder (ADD) without hyperactivity - ICD9: 314.00, ICD10: F98.8 Discontinue Adderall XR formulation of medication- this is causing her migraine/tension headaches. Recommend trial of short acting adderall 10-20 mg in AM and afternoon as needed. If this is givng her SE, then change to generic Vyvanse as d/w her today - DEXTROAMPHETAMINE-AMPHETAMINE 10 MG TABLET Ketan Moffett DO Return if no improvement. Follow up with Ketan Moffett DO. To ER if develops chest pain, shortness of breath. Discussed risks, benefits, alternatives, and potential side effects of medications. Patient/Guardian expressed understanding and agreed with the plan. See patient instructions. Ketan Moffett DO [address] [place] [address] documented in this encounter [facility] 07-10-2023 Telephone encounter Note Patient has been identified by name and date of : Yes, Provider Dr. Moffett Date 07/10/23 Time 10:31 Patient phones for refill(s): Requested Prescriptions Pending Prescriptions Disp Refills sertraline (ZOLOFT) 50 mg tablet 90 tablet 1 Sig: Take 1 tablet by mouth daily with dinner. Date of last office visit in primary care: 04/13/2023 Date of next office visit in primary care: 07/22/2023 Please advise. Thank you. Iraida Han LPN. [facility] 07-10-2023 Miscellaneous Notes Patient has been identified by name and date of : Yes, Provider Dr. Moffett Date 07/10/23 Time 10:31 Patient phones for refill(s): Requested Prescriptions Pending Prescriptions Disp Refills sertraline (ZOLOFT) 50 mg tablet 90 tablet 1 Sig: Take 1 tablet by mouth daily with dinner. Date of last office visit in primary care: 04/13/2023 Date of next office visit in primary care: 07/22/2023 Please advise. Thank you. Iraida Han LPN. documented in this encounter [facility] 04-27-2023 Miscellaneous Notes Mailed to patient. Could not find these. Mey may know. Please mail patient a copy of information for plant and dairy based calcium sources Ketan Moffett DO documented in this encounter [facility] 04-23-2023 Miscellaneous Notes Spoke with pt gave information provided. Pt voices understanding. Please inform patient that overall her labs are stable/improved Ketan Moffett DO documented in this encounter [facility] 04-21-2023 History of Present illness Narrative CC: Oneyda Mao is a 38 year old female who presents to the office for physical HPI: Mood, she is currently taking zoloft medication as prescribed. She is struggling with impaired concentration and focus, affects her at her job as well as at home and not getting her tasks completed or projects done. This is frustrating to her. No SI or HI. She feels she has lack of ambition and motivation. No SE with medication Hypothyroidism, taking levothyroxine as prescribed TSH Date Value Ref Range Status 01/22/2023 2.260 0.270 - 4.200 mIU/L Final Comment: If the patient is , TSH reference range varies by gestational period: First Trimester (weeks 9-12): 0.180-2.990 mIU/L Second Trimester: 0.110-3.980 mIU/L Third Trimester: 0.480-4.710 mIU/L Yan John et al. A Practical Approach for the Verifications and Determination of Site- and Trimester-Specific Reference Intervals for Thyroid Function tests in . Thyroid, 2019:29:3:412-420. Adria Staton et al. 2017 Guidelines of the [place] [employer] for the Diagnosis and Management of Thyroid Disease during and the . Thyroid, 2017:27:3:315-389. PAST MEDICAL HISTORY Diagnosis Date Genital warts Hypercholesteremia 03/19/2015 LGSIL (low grade squamous intraepithelial dysplasia) 02/17/2008 Subclinical hypothyroidism 10/2022 PAST SURGICAL HISTORY Procedure Laterality Date PAST SURGICAL HISTORY OF 2007? laser treatment to genital warts PAST SURGICAL HISTORY OF 06/05/2021 laparoscopic excision fo endometriosis, right ureterlysis VAGINOSCOPY 02/17/2008 Social History: Social History Tobacco Use Smoking status: Never Smokeless tobacco: Never Vaping Use Vaping Use: Never used Substance Use Topics Alcohol use: Yes Comment: seldom Drug use: Never FAMILY HISTORY Problem Relation Age of Onset Thyroid Mother Hypertension Mother Hyperlipidemia Mother Osteoporosis Mother arthritis as well other (Uterine fibroids) Mother Hyperlipidemia Father Hypertension Father Arthritis Father Melanoma Father back Hypertension Brother Lipids Brother Heart Maternal Grandmother other (lupus) Maternal Grandmother Arthritis Maternal Grandfather Hyperlipidemia Maternal Grandfather Heart Paternal Grandfather MD Anesthesia Problems No Family History Current Outpatient prescriptions: amphetamine-dextroamphetamine XR (ADDERALL XR) 20 mg capsule Take 1 capsule by mouth once daily for 30 days. In the morning sertraline (ZOLOFT) 100 mg tablet Take 1 tablet by mouth once daily. levothyroxine (LEVOXYL) 50 mcg tablet Take 1 tablet by mouth once daily. Take on empty stomach. For Thyroid sertraline (ZOLOFT) 50 mg tablet Take 1 tablet by mouth daily with dinner. L-Norgest and E Estradiol-E Estrad (SEASONIQUE) 0.15 mg-30 mcg (84)/10 mcg (7) Take 1 tablet by mouth once daily. ferrous sulfate (SLOW FE) 140 mg (45 mg iron) TbER Take 1 tablet by mouth once daily. With a meal Allergies: ALLERGIES No Known Allergies ROS: See HPI PE: 04/13/23 1108 BP: 100/60 Pulse: 80 Resp: 16 Temp: 36.2 C (97.1 F) TempSrc: Right Tympanic Weight: 92.1 kg (203 lb) Height: 166 cm (5' 5.35) Gen: A&O, NAD, non-toxic appearing, fatigued appearing, well dressed, cooperative HEENT: NT/AC, PERRLA, EOMs intact b/l, nares clear and patent b/l, pharynx without erythema, exudate or lesions. MMM, Uvula midline. EACs without erythema or debris. TMs pearly norris with intact landmarks b/l. Neck: supple, No cervical LAD, no thyromegaly, no carotid bruits CV: RRR, normal S1 and S2, no murmurs, no gallops, no rubs, Pulses 2+ and symmetric in UE and LE b/l Lungs: normal respiratory effort, CTA b/l, no wheezing or rhonchi or rales Abd: soft, NT, ND, +BS, no hepatosplenomegaly MS: FROM all 4 extremities Neuro: CN II-XII intact b/l, strength 5/5 b/l UE and LE, DTRs 2/4 UE and LE, sensation intact. Skin: warm, dry, intact, No rashes or lesions on exposed skin. No edema, normal pulses Overweight ASSESSMENT/PLAN: 1. Vitamin D deficiency - ICD9: 268.9, ICD10: E55.9 (primary diagnosis) Recheck labs, + fatigue symptoms - VITAMIN D 25 HYDROXY 2. Well adult exam - ICD9: V70.0, ICD10: Z00.00 - Counseled on healthy diet and regular exercise - Calcium intake with supplements or by diet of 1000 mg/day for under 50, 5296-3034 mg/day for 50+ - Discussed need and benefit for weight loss. BMI 33.42 kg/(m^2) 3. Subclinical hypothyroidism - ICD9: 244.8, ICD10: E03.8 - Instructed patient on importance of taking on an empty stomach either first thing in the morning or at bedtime. - continue current dose of Synthroid 0.050 mg - TSH BLD - T4 FREE/FREE THYROX - T3 FREE BLD 4. Impaired concentration - ICD9: 799.51, ICD10: R41.840 Start on increased dose of adderall to 20 mg a day, if not effective then consider adding on afternoon dose or changing AM dosing to Vyvanse. F/u in office in 2-3 months and prn - DEXTROAMPHETAMINE-AMPHETAMINE ER 20 MG 24HR CAPSULE,EXTEND RELEASE 5. CRP elevated - ICD9: 790.95, ICD10: R79.82 Recheck labs, + fatigue symptoms. - C-REACTIVE PROTEIN (CRP) - SED RATE WESTERGREN - COMP METABOLIC PANEL - CBC + DIFF 6. Dyslipidemia - ICD9: 272.4, ICD10: E78.5 - Control undetermined, due for labs - Counseled on healthy diet and regular exercise - Discussed need for and benefit of weight loss. BMI 33.42 kg/(m^2) - LIPID PANEL BASIC Ketan Moffett DO To ER if develops chest pain, shortness of breath, or severe worsening of symptoms. Discussed risks, benefits, alternatives, and potential side effects of medications. Patient expressed understanding and agreed with the plan. Ketan Moffett DO [address] [place] [address] documented in this encounter [facility] 01-21-2023 History of Present illness Narrative CC: Oneyda Mao is a 37 year old female who presents to the office for follow up HPI: For the last 2-3 months she has been having multiple symptoms of generalized fatigue, daytime fatigue and restless legs at night. Reports once she woke herself up snoring, otherwise doesn't think she snores. Having dry skin, brittle nails, foggy brain symptoms at times. Otherwise finds herself cold intolerant and then other times hot and sweaty feeling, comes and goes. No previous personal hx of thyroid dysfunction- mother does have history of hypothyroidism on synthroid TSH Date Value Ref Range Status 09/22/2022 4.800 (H) 0.270 - 4.200 mIU/L Final Comment: Currently Concentration impairment, attention is difficulty. She has considered trying to manage without medication but feels she is willing to start medication- Difficulty with fatigue, sleepiness Is taking her thyroid medication, wondering if dose needs to be increased, is due for labs to be rechecked. Will have these drawn tomorrow Iron deficiency, not taking supplement yet. Has been increasing her food sources of iron in her diet. Snoring, fatigue during day, waking up tired, brother has been diagnosed with LIBORIO and wears CPAP, she hasn't been tested in the past PAST MEDICAL HISTORY Diagnosis Date Genital warts Hypercholesteremia 03/19/2015 LGSIL (low grade squamous intraepithelial dysplasia) 02/17/2008 Subclinical hypothyroidism 10/2022 PAST SURGICAL HISTORY Procedure Laterality Date PAST SURGICAL HISTORY OF 2007? laser treatment to genital warts PAST SURGICAL HISTORY OF 06/05/2021 laparoscopic excision fo endometriosis, right ureterlysis VAGINOSCOPY 02/17/2008 Social History: Social History Tobacco Use Smoking status: Never Smokeless tobacco: Never Vaping Use Vaping Use: Never used Substance Use Topics Alcohol use: Yes Comment: seldom Drug use: Never FAMILY HISTORY Problem Relation Age of Onset Thyroid Mother Hypertension Mother Hyperlipidemia Mother Osteoporosis Mother arthritis as well other (Uterine fibroids) Mother Hyperlipidemia Father Hypertension Father Arthritis Father Melanoma Father back Hypertension Brother Lipids Brother Heart Maternal Grandmother other (lupus) Maternal Grandmother Arthritis Maternal Grandfather Hyperlipidemia Maternal Grandfather Heart Paternal Grandfather MD Anesthesia Problems No Family History Current Outpatient prescriptions: sertraline (ZOLOFT) 50 mg tablet Take 1 tablet by mouth daily with dinner. levothyroxine (LEVOXYL) 50 mcg tablet Take 1 tablet by mouth once daily. Take on empty stomach. For Thyroid L-Norgest and E Estradiol-E Estrad (SEASONIQUE) 0.15 mg-30 mcg (84)/10 mcg (7) Take 1 tablet by mouth once daily. ferrous sulfate (SLOW FE) 140 mg (45 mg iron) TbER Take 1 tablet by mouth once daily. With a meal amphetamine-dextroamphetamine XR (ADDERALL XR) 10 mg capsule Take 1 capsule by mouth once daily for 14 days. In the morning as needed for focus/concentration Allergies: ALLERGIES No Known Allergies ROS: See HPI PE: 01/21/23 1836 BP: 116/76 Pulse: 80 Resp: 16 Temp: 36.1 C (97 F) TempSrc: Left Tympanic Weight: 92.5 kg (204 lb) Gen: A&OX3, NAD, non-toxic appearing HEENT: PERRLA, EOMs intact b/l, nares without drainage, pharynx without erythema, exudate, lesions, or drainage. Uvula midline. Neck: No LAD, mild symmetric fullness b/l of thyroid without pain to palpation, no meningismus. CV: RRR, no murmur Lungs: CTA b/l, no wheezing Skin: No rashes, lesions, or wounds on exposed skin. Fatigued appearing Slightly pale PDMP website checked and validated. All prescriptions have been APPROPRIATELY filled. No suspicious activity was identified. 01/22/2023 by Ketan Moffett DO ASSESSMENT/PLAN: 1. Snoring - ICD9: 786.09, ICD10: R06.83 (primary diagnosis) - need for screening for LIBORIO, brother has LIBORIO, start on short supply of Adderall to see if helps daytime fatigue. Consider starting on supplements to help with sleep as well as d/w her today - HOME SLEEP APNEA TEST (HSAT) 2. Need for influenza vaccination - ICD9: V04.81, ICD10: Z23 - INFLUENZA VACCINE, AGE 6 MO - 64 YR, QUADRIVALENT (AFLURIA, FLULAVAL, FLUZONE) 3. Hypersomnolence - ICD9: 780.54, ICD10: G47.10 - need for screening for LIBORIO, brother has LIBORIO, start on short supply of Adderall to see if helps daytime fatigue. Consider starting on supplements to help with sleep as well as d/w her today - HOME SLEEP APNEA TEST (HSAT) - DEXTROAMPHETAMINE-AMPHETAMINE ER 10 MG 24HR CAPSULE,EXTEND RELEASE 4. Fatigue, unspecified type - ICD9: 780.79, ICD10: - need for screening for LIBORIO, brother has LIBORIO, start on short supply of Adderall to see if helps daytime fatigue. Consider starting on supplements to help with sleep as well as d/w her today - HOME SLEEP APNEA TEST (HSAT) - IRON + TIBC - FERRITIN BLD - VITAMIN D 25 HYDROXY - VITAMIN B12 BLOOD - 5-METHYLTETRAHYDROFOLATE - DEXTROAMPHETAMINE-AMPHETAMINE ER 10 MG 24HR CAPSULE,EXTEND RELEASE 5. Need for COVID-19 vaccine - ICD9: V04.89, ICD10: Z23 - [employer] COVID-19 VACCINE (2022- SEASON) AGE 12+ YR 6. Subclinical hypothyroidism - ICD9: 244.8, ICD10: E03.8 - Instructed patient on importance of taking on an empty stomach either first thing in the morning or at bedtime. - TSH BLD - T4 FREE/FREE THYROX - T3 FREE BLD 7. Iron deficiency - ICD9: 280.9, ICD10: E61.1 She hasn't started supplement yet. - IRON + TIBC - FERRITIN BLD - FOLATE SERUM - 5-METHYLTETRAHYDROFOLATE 8. Situational anxiety - ICD9: 300.09, ICD10: F41.8 See above, no SI or HI, still has fatigue although starting to improve after starting on levothyroxine. 9. Impaired concentration - ICD9: 799.51, ICD10: R41.840 See above, follow up in office in 1-2 months.no SI or HI - DEXTROAMPHETAMINE-AMPHETAMINE ER 10 MG 24HR CAPSULE,EXTEND RELEASE Ketan Moffett DO To ER if develops chest pain, shortness of breath, or severe worsening of symptoms. Discussed risks, benefits, alternatives, and potential side effects of medications. Patient expressed understanding and agreed with the plan. Ketan Moffett DO [address] [place] [address] documented in this encounter [facility] 12-30-2022 Miscellaneous Notes OCTAVIO: 10/07/22 with PCP NOV: 01/21/23 with PCP Last refill: 06/30/22 With 90 and 1 refills Tasha Presley MA documented in this encounter [facility] 12-11-2022 Miscellaneous Notes Patient returned call and given provider's message below and patient verbalized understanding. Asaf Gustafson RN Left message to return call Janelle Aguillon Lets increase regimen to 50 mcg daily. Repeat thyroid labs in 6 weeks to reassess. Rx sent. Thank you, Colleen Vizcaino APRN.CNP The following approved medication requests have been transmitted electronically. Requested Prescriptions Signed Prescriptions Disp Refills levothyroxine (LEVOXYL) 50 mcg tablet 30 tablet 1 Sig: Take 1 tablet by mouth once daily. Take on empty stomach. For Thyroid Authorizing Provider: COLLEEN VIZCAINO APRN.KEIKO Spoke with patient. Given message from provider's office. Patient verbalizes understanding. She says she is still having symptoms especially feeling tired and thinning hair. She would like to increase Levothyroxine dose. Milvia Diego RN TC to pt. LM to call office, ask for triage nurse to get results. Adelaida Cleaning LPN Please call patient and let her know that thyroid lab work is back. TSH is improving but still elevated. T3 and t4 levels remain WNL but have room for improvement. See if patient is symptomatic. We can slightly increase levothyroxine regimen or continue to monitor labs. Colleen Vizcaino APRN.KEIKO documented in this encounter [facility] 10-24-2022 Miscellaneous Notes Informed. Jennifer Walsh Please let pt know this is sent. Lab work is in to have in 6 weeks. The following approved medication requests have been transmitted electronically. Requested Prescriptions Signed Prescriptions Disp Refills levothyroxine (LEVOXYL) 25 mcg tablet 30 tablet 1 Sig: Take 1 tablet by mouth once daily. Take on empty stomach. For Thyroid Authorizing Provider: COLLEEN VIZCAINO APRN.CNP Pt informed, verbalized understanding. Pt reports she would like to start medication. Please send to [facility] pharmacy. Pt will recheck labs in 6 weeks. Janelle Aguillon Please inform patient that her TSH lab for thyroid is still high which means she is in a subclinical hypothyroidism. Her other thyroid labs are all normal, no signs of autoimmune thyroid disorder called Augustin's. Her CRP inflammation marker is borderline but WSR inflammation marker is normal. For the subclinical hypothyroidism she can consider just monitoring and rechecking labs in 6-12 mths or she can start on thyroid hormone called levothyroxine that she would take daily in the morning to help with thyroid hormone support and then would recheck thyroid labs in 6 weeks Ketan Moffett DO documented in this encounter [facility] 10-08-2022 Miscellaneous Notes Addended by: ABEL CHOU on: 10/08/2022 02:09 PM Modules accepted: Orders Addended by: GABRIELA VEGA MA on: 10/08/2022 02:03 PM Modules accepted: Orders documented in this encounter [facility] 10-08-2022 History of Present illness Narrative Oneyda is a 37 year old who presents for an annual gynecologic exam without complaints. 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 laser treatment to genital warts PAST SURGICAL HISTORY OF 06/05/2021 laparoscopic excision fo endometriosis, right ureterlysis VAGINOSCOPY 02/17/2008 FAMILY HISTORY Problem Relation Age of Onset Thyroid Mother Hypertension Mother Hyperlipidemia Mother Osteoporosis Mother arthritis as well other (Uterine fibroids) Mother Hyperlipidemia Father Hypertension Father Arthritis Father Melanoma Father back Hypertension Brother Lipids Brother Heart Maternal Grandmother other (lupus) Maternal Grandmother Arthritis Maternal Grandfather Hyperlipidemia Maternal Grandfather Heart Paternal Grandfather MD Anesthesia Problems No Family History SOCIAL HISTORY Social History Tobacco Use Smoking status: Never Smokeless tobacco: Never Vaping Use Vaping Use: Never used Substance Use Topics Alcohol use: Yes Comment: seldom Drug use: Never REVIEW OF SYSTEMS Abdomen: No abdominal pain, nausea, vomiting, diarrhea, or constipation. No bloating, early satiety, indigestion, or increased flatulence. Bladder: No dysuria, gross hematuria, urinary frequency, urinary urgency, or incontinence. Breast: No breast lumps, nipple d/c, overlying skin changes, redness or skin retraction. Allergies and current medication updated:Yes EXAM: BP 118/70 Ht 5' 6 (1.68m) Wt 198 lb (89.8kg) LMP 04/07/2022 BMI 31.97 kg/(m^2). GENERAL: pleasant, female in no apparent distress HEENT: Normocephalic, atraumatic, mucus membranes moist, and no lesions NECK: Supple, full range of motion, no adenopathy, and thyroid normal DERMATOLOGY: Normal, without lesions, non-icteric, and non-hirsute BREAST: soft, non-tender, symmetric, no dominant mass, normal nipple-areolar complex, no lymphadenopathy, and no nipple discharge CHEST: Normal inspiratory effort ABDOMEN: soft, non-tender, and no masses PELVIC: external genitalia normal, normal Bartholin's glands, urethra, Silerton's glands, no vulvar lesions, no cervical lesions, good vaginal support, physiologic discharge present, normal appearing perineal body and perianal region BIMANUAL: uterus normal size, shape and consistency, no adnexal masses, and non-tender RECTOVAGINAL: deferred. NEURO: alert and oriented x3,exam grossly non-focal EXTREMITIES: normal ASSESSMENT/PLAN: 1) Health maintenance: Pap/HPV up to date. Mammogram starting age 40. 2) Contraception: combined hormonal contraceptives. Contraceptive options reviewed and information provided. 3) STD screening: Declined STD check. 4) Follow up one year or sooner as needed if continues spotting then consider SIS or Endosee Abel Chou MD documented in this encounter [facility] 10-07-2022 History of Present illness Narrative CC: Oneyda Mao is a 37 year old female who presents to the office for follow up HPI: For the last 2-3 months she has been having multiple symptoms of generalized fatigue, daytime fatigue and restless legs at night. Reports once she woke herself up snoring, otherwise doesn't think she snores. Having dry skin, brittle nails, foggy brain symptoms at times. Otherwise finds herself cold intolerant and then other times hot and sweaty feeling, comes and goes. No previous personal hx of thyroid dysfunction- mother does have history of hypothyroidism on synthroid TSH Date Value Ref Range Status 09/22/2022 4.800 (H) 0.270 - 4.200 mIU/L Final Comment: If the patient is , TSH reference range varies by gestational period: First Trimester (weeks 9-12): 0.180-2.990 mIU/L Second Trimester: 0.110-3.980 mIU/L Third Trimester: 0.480-4.710 mIU/L Yan John et al. A Practical Approach for the Verifications and Determination of Site- and Trimester-Specific Reference Intervals for Thyroid Function tests in . Thyroid, 2019:29:3:412-420. Adria E, et al. 2017 Guidelines of the [place] Thyroid Association for the Diagnosis and Management of Thyroid Disease during and the . Thyroid, 2017:27:3:315-389. Hemoglobin (g/dL) Date Value 09/22/2022 14.0 05/24/2020 13.3 Hematocrit (%) Date Value 09/22/2022 44.0 05/24/2020 43.0 WBC (k/uL) Date Value 09/22/2022 10.43 05/24/2020 7.27 Glucose (mg/dL) Date Value 09/22/2022 80 05/24/2020 83 Potassium (mmol/L) Date Value 09/22/2022 3.9 05/24/2020 4.0 Sodium (mmol/L) Date Value 09/22/2022 138 05/24/2020 139 Chloride (mmol/L) Date Value 09/22/2022 104 05/24/2020 104 CO2 (mmol/L) Date Value 09/22/2022 22 05/24/2020 24 Creatinine (mg/dL) Date Value 09/22/2022 0.85 05/24/2020 0.92 BUN (mg/dL) Date Value 09/22/2022 12 05/24/2020 10 Anion Gap (mmol/L) Date Value 09/22/2022 12 05/24/2020 11 Calcium (mg/dL) Date Value 05/24/2020 9.4 Calcium, Total (mg/dL) Date Value 09/22/2022 9.1 Protein, Total (g/dL) Date Value 09/22/2022 7.2 05/24/2020 7.6 Albumin (g/dL) Date Value 09/22/2022 4.0 05/24/2020 4.3 Bilirubin, Total (mg/dL) Date Value 09/22/2022 0.3 05/24/2020 0.3 Alkaline Phosphatase (U/L) Date Value 09/22/2022 69 05/24/2020 66 AST (U/L) Date Value 09/22/2022 17 05/24/2020 16 ALT (U/L) Date Value 09/22/2022 16 05/24/2020 9 PAST MEDICAL HISTORY Diagnosis Date Genital warts Hypercholesteremia 03/19/2015 LGSIL (low grade squamous intraepithelial dysplasia) 02/17/2008 PAST SURGICAL HISTORY Procedure Laterality Date PAST SURGICAL HISTORY OF 2007? laser treatment to genital warts PAST SURGICAL HISTORY OF 06/05/2021 laparoscopic excision fo endometriosis, right ureterlysis VAGINOSCOPY 02/17/2008 Current Outpatient Medications Medication Sig ferrous sulfate (SLOW FE) 140 mg (45 mg iron) TbER Take 1 tablet by mouth once daily. With a meal sertraline (ZOLOFT) 50 mg tablet Take 1 tablet by mouth daily with dinner. L-Norgest and E Estradiol-E Estrad (SEASONIQUE) 0.15 mg-30 mcg (84)/10 mcg (7) Take 1 tablet by mouth once daily. ibuprofen (MOTRIN) 600 mg tablet Take 1 tablet by mouth every 8 hours as needed for pain. No current facility-administered medications for this visit. ALLERGIES No Known Allergies Social History Tobacco Use Smoking status: Never Smokeless tobacco: Never Vaping Use Vaping Use: Never used Substance Use Topics Alcohol use: Yes Comment: seldom Drug use: Never ROS: See HPI PE: BP 112/70 Pulse 80 Resp 16 Ht 5' 6 (1.68m) Wt 199 lb (90.3kg) LMP 04/07/2022 BMI 32.13 kg/(m^2). Gen: A&OX3, NAD, non-toxic appearing HEENT: PERRLA, EOMs intact b/l, nares without drainage, pharynx without erythema, exudate, lesions, or drainage. Uvula midline. Neck: No LAD, mild symmetric fullness b/l of thyroid without pain to palpation, no meningismus. CV: RRR, no murmur Lungs: CTA b/l, no wheezing Skin: No rashes, lesions, or wounds on exposed skin. ASSESSMENT/PLAN: 1. Elevated TSH - ICD9: 794.5, ICD10: R79.89 (primary diagnosis) She will increase iron and selenium and vitamin D in her diet. Recheck labs in 2-3 weeks as ordered, d/w her the possibility that she has augustin's thyroiditis vs. Hypothyroidism etc. She is aware. - TSH BLD - T4 FREE/FREE THYROX - T3 FREE BLD - THYROID PEROXIDASE ANTIBODY BLOOD - THYROGLOBULIN AB - C-REACTIVE PROTEIN (CRP) - SED RATE WESTERGREN 2. Iron deficiency - ICD9: 280.9, ICD10: E61.1 See above, add on iron rich foods increased into diet. - FERROUS SULFATE ER 140 MG (45 MG IRON) TABLET,EXTENDED RELEASE 3. Elevated lymphocyte count - ICD9: 288.61, ICD10: D72.820 - recheck labs in 2 weeks, mildly high, no recent URI - CBC + DIFF 4. Fatigue, unspecified type - ICD9: 780.79, ICD10: R53.83 Recheck labs as ordered, suspect new onset of hypothyroidism. Start to increase iron in diet 5. Cold intolerance - ICD9: 780.99, ICD10: R68.89 Recheck labs as ordered, suspect new onset of hypothyroidism. Start to increase iron in diet 6. Dry skin - ICD9: 701.1, ICD10: L85.3 Recheck labs as ordered, suspect new onset of hypothyroidism. Start to increase iron in diet 7. Brittle nails - ICD9: 703.8, ICD10: L60.3 Recheck labs as ordered, suspect new onset of hypothyroidism. Start to increase iron in diet 8. Sleep disorder - ICD9: 780.50, ICD10: G47.9 Recheck labs as ordered, suspect new onset of hypothyroidism. Start to increase iron in diet Ketan Moffett DO Return if no improvement. Follow up with Ketan Moffett DO. To ER if develops chest pain, shortness of breath Discussed risks, benefits, alternatives, and potential side effects of medications. Patient/Guardian expressed understanding and agreed with the plan. See patient instructions. Ketan Moffett DO [address] [place] [address] documented in this encounter [facility] 10-07-2022 Instructions Ketan Moffett DO - 10/07/2022 11:26 AM EDT Selenium rich foods Iron rich foods documented in this encounter [facility] 09-19-2022 History of Present illness Narrative 09/19/2022 Patient presents with: Sleep Problem: Has gotten worse in the last 3 months. Has trouble falling asleep, staying asleep and is tired all the time. SUBJECTIVE: This is a 37 year old that is here today for Above Complaints. Reports has always had sleep problems. Seems to be getting worse over the last three months. Depression better since staring Zoloft. Has taken zyquil and melatonin in the past which doesn't seem to help. Seeing a therapist who will be assessing her for ADHD. Patient reports therapist told her ADHD to contribute to sleep problems. Admits to generalized fatigue, daytime fatigue and restless legs at night. Reports once she woke herself up snoring, otherwise doesn't think she snores. PAST MEDICAL HISTORY Diagnosis Date Genital warts Hypercholesteremia 03/19/2015 LGSIL (low grade squamous intraepithelial dysplasia) 02/17/2008 ALLERGIES Patient has no known allergies. MEDICATIONS Current Outpatient Medications Medication Sig sertraline (ZOLOFT) 50 mg tablet Take 1 tablet by mouth daily with dinner. L-Norgest and E Estradiol-E Estrad (SEASONIQUE) 0.15 mg-30 mcg (84)/10 mcg (7) Take 1 tablet by mouth once daily. ibuprofen (MOTRIN) 600 mg tablet Take 1 tablet by mouth every 8 hours as needed for pain. No current facility-administered medications for this visit. Medications and allergies reviewed by this provider. SOCIAL HISTORY Social History Tobacco Use Smoking status: Never Smokeless tobacco: Never Vaping Use Vaping Use: Never used Substance Use Topics Alcohol use: Yes Comment: seldom Drug use: Never REVIEW OF SYSTEMS All other reviewed and negative other than HPI. OBJECTIVE: BP 118/76 Pulse 85 Resp 16 Wt 90.3 kg (199 lb) LMP 04/07/2022 (Approximate) SpO2 98% BMI 32.12 kg/m . Vital signs reviewed by this provider. APPEARANCE Well appearing, alert, in no acute distress, well-hydrated, well nourished. EYES conjunctiva and sclera normal. HEART RRR with normal S1 and S2, no murmurs, no gallops, no JVD appreciated LUNG clear to auscultation. No wheezes, rhonchi or rales SKIN Skin color, texture, turgor normal, no suspicious rashes or lesions to exposed skin HEPATITIS B(1 of 3 - 3-dose series) Never done HEPATITIS C SCREENING Never done HIV SCREENING Never done COVID-19 VACCINE(4 - Moderna series) due on 03/22/2021 INFLUENZA(1) due on 10/17/2022 PAP TESTING due on 04/25/2024 HPV TESTING due on 04/25/2024 DTAP,TDAP,TD(2 - Td or Tdap) due on 12/26/2030 HPV VACCINE Completed ASSESSMENT/PLAN: 1. Sleeping difficulties - ICD9: 780.50, ICD10: G47.9 (primary diagnosis) - offered trial of medication- declines - may benefit from sleep study if negative work-up - plan as below 2. Fatigue, unspecified type - ICD9: 780.79, ICD10: R53.83 - work with therapy for CBT - CBC + DIFF - TSH BLD - COMP METABOLIC PANEL - IRON + TIBC - FERRITIN BLD - follow-up pending blood work 3. Restless legs - ICD9: 333.94, ICD10: G25.81 - may benefit from treatment for RLS - CBC + DIFF - IRON + TIBC - FERRITIN BLD 4. Hyperlipidemia, mixed - ICD9: 272.2, ICD10: E78.2 - Control undetermined, due for labs - Counseled on healthy diet and regular exercise - Discussed need for and benefit of weight loss. BMI 32.12 kg/(m^2) - LIPID PANEL BASIC - follow-up with PCP for annual physical Humaira Hurtado APRN.CNP Prescription instructions reviewed with patient as applicable. Patient advised if symptoms do not improve or if symptoms worsen sooner, to contact their primary care physician. Potential red flag symptoms discussed with the patient. Reviewed appropriate action plan to take if red flag symptoms occur. Patient agreeable to treatment plan. I spent a total of 25 minutes on the date of the service which included preparing to see the patient, [id number] patient care, completing clinical documentation, obtaining and/or reviewing separately obtained history, performing a medically appropriate examination, counseling and educating the patient/family/caregiver, and ordering medications, tests, or procedures. documented in this encounter [facility] 05-06-2022 History of Present illness Narrative CC: Oneyda Mao is a 37 year old female who presents to the office for follow up HPI: Seen in the office on 02/19/2022 Mood, struggling recently with feeling depressed and anxious symptoms. Has been going to see Therapist recently and feels this is starting to help. She did quit her job about 2 months ago due to the toxic environment that she was in. No SI or HI. Crying, doesn't feel that her home is homey feeling so she is working on this as well. She is trying to modify situations that she is able to control to help symptoms. Does feel she needs to also be back on medication as well. Was on zoloft in the past with benefit. She was started on Zoloft Currently Mood, feels she is tolerating the Zoloft well. Doesn't feel it needs to be adjusted up. No SI or HI. Has been continuing going to the therapist that she feels she has benefited from as well. The therapist is concerned that she may also be struggling with ADD and concentration impairment and is going to review this with her at her next appt. She is considering going to [place] upcoming with her sister and her brother in law in August- is trying to get her passport completed to travel. PAST MEDICAL HISTORY Diagnosis Date Genital warts Hypercholesteremia 03/19/2015 LGSIL (low grade squamous intraepithelial dysplasia) 02/17/2008 PAST SURGICAL HISTORY Procedure Laterality Date PAST SURGICAL HISTORY OF 2007? laser treatment to genital warts PAST SURGICAL HISTORY OF 06/05/2021 laparoscopic excision fo endometriosis, right ureterlysis VAGINOSCOPY 02/17/2008 Current Outpatient Medications Medication Sig sertraline (ZOLOFT) 50 mg tablet Take 1 tablet by mouth daily with dinner. L-Norgest and E Estradiol-E Estrad (SEASONIQUE) 0.15 mg-30 mcg (84)/10 mcg (7) Take 1 tablet by mouth once daily. ibuprofen (MOTRIN) 600 mg tablet Take 1 tablet by mouth every 8 hours as needed for pain. No current facility-administered medications for this visit. ALLERGIES No Known Allergies Social History Tobacco Use Smoking status: Never Smokeless tobacco: Never Vaping Use Vaping Use: Never used Substance Use Topics Alcohol use: Yes Comment: seldom Drug use: Never ROS: See HPI PE: BP 136/80 Pulse 88 Temp (Src) 98.4 (Left Tympanic) Resp 16 Wt 198 lb (89.8kg) LMP 04/07/2022 Gen: A&OX3, NAD, non-toxic appearing HEENT: PERRLA, EOMs intact b/l, nares without drainage, pharynx without erythema, exudate, lesions, or drainage. Uvula midline. Neck: No LAD, no thyromegaly, no meningismus. CV: RRR, no murmur Lungs: CTA b/l, no wheezing Skin: No rashes, lesions, or wounds on exposed skin. ASSESSMENT/PLAN: 1. Situational depression - ICD9: 309.0, ICD10: F43.21 (primary diagnosis) Continue zoloft, overall is stable 2. Situational anxiety - ICD9: 300.09, ICD10: F41.8 - continue zoloft, overall is stable 3. Concentration deficit - ICD9: 799.51, ICD10: R41.840 - she was given adult ADD screening self report scale today to complete, she will also discuss these potential concerns with her therapist Ketan Moffett DO Return if no improvement. Follow up with Ketan Moffett DO. To ER if develops chest pain, shortness of breath Discussed risks, benefits, alternatives, and potential side effects of medications. Patient/Guardian expressed understanding and agreed with the plan. See patient instructions. Ketan Moffett DO [address] [place] [address] documented in this encounter [facility] 04-11-2022 History of Present illness Narrative Patient identified by name and date of . Oneyda Mao is here for her HPV 9 vaccination, injection # three of the series. Patient ?No Gardasil injection was given without incident. See immunizations for details of immunizations administered today. VIS sheet provided: Yes Patient advised to follow up in Series completed Provider Dr. Carreno was present in office at time of injection. Kristen Wheeler LPN documented in this encounter [facility] 04-11-2022 Instructions Kristen Wheeler LPN - 04/11/2022 3:55 PM EST Gardasil Gardasil is a vaccine to protect against Human Papillomavirus (HPV) types 6, 11, 16, 18, 31,33,45, 52, 58. These viruses cause cancer and precancerous lesions on the cervix (opening between vagina and uterus), in the vagina and on the vulva (skin around the outside of the vagina) as well as genital warts. The vaccine cannot cause these diseases and cannot treat them if already present. Gardasil works best if given before contact with HPV. Most people are exposed to HPV soon after starting sexual activity. The vaccine is recommended between the ages of 9 and 45. Gardasil does not protect against all strains of HPV. Women who receive the vaccine still need to have regular pelvic exams and cervical cancer screening with the pap smear. You should ask your doctor if Gardasil is right for you if you have a weakened immune system, a bleeding disorder, plan to become soon or have a current illness causing fever. Gardasil is not recommended for women. You should be sure your doctor is aware of any allergies you have and all medications and herbal supplements you take. Gardasil is given to those ages 9-14 in 2 doses at 0 and 8 months. In ages 15-45, three injections are given at 0,2,6 months. Common side effects include pain, redness, itching and swelling at the injection site, nausea, fever, dizziness and fainting. Rare but potentially serious reactions have been reported. These include allergic reaction, swollen glands, joint and muscle pain, weakness and Guillain-Hazlehurst syndrome. documented in this encounter [facility] 12-09-2021 Kuldip Agustin RN - 12/09/2021 4:01 PM EDT Gardasil Gardasil is a vaccine to protect against Human Papillomavirus (HPV) types 6, 11, 16, 18, 31,33,45, 52, 58. These viruses cause cancer and precancerous lesions on the cervix (opening between vagina and uterus), in the vagina and on the vulva (skin around the outside of the vagina) as well as genital warts. The vaccine cannot cause these diseases and cannot treat them if already present. Gardasil works best if given before contact with HPV. Most people are exposed to HPV soon after starting sexual activity. The vaccine is recommended between the ages of 9 and 45. Gardasil does not protect against all strains of HPV. Women who receive the vaccine still need to have regular pelvic exams and cervical cancer screening with the pap smear. You should ask your doctor if Gardasil is right for you if you have a weakened immune system, a bleeding disorder, plan to become soon or have a current illness causing fever. Gardasil is not recommended for women. You should be sure your doctor is aware of any allergies you have and all medications and herbal supplements you take. Gardasil is given to those ages 9-14 in 2 doses at 0 and 8 months. In ages 15-45, three injections are given at 0,2,6 months. Common side effects include pain, redness, itching and swelling at the injection site, nausea, fever, dizziness and fainting. Rare but potentially serious reactions have been reported. These include allergic reaction, swollen glands, joint and muscle pain, weakness and Guillain-Hazlehurst syndrome. documented in this encounter [facility] 12-09-2021 History of Present illness Narrative Patient identified by name and date of . Oneyda Mao is here for her HPV Gardasil vaccination, injection # two of the series. Patient ?No Gardasil injection was given without incident. See immunizations for details of immunizations administered today. VIS sheet provided: Yes Patient advised to follow up in 4 months from the 2nd injection Provider DR. Orr was present in office at time of injection. Verona Agustin RN documented in this encounter [facility] 10-08-2021 Instructions Abel Chou MD - 10/08/2021 10:04 AM EDT Gardasil Gardasil is a vaccine to protect against Human Papillomavirus (HPV) types 6, 11, 16, 18, 31,33,45, 52, 58. These viruses cause cancer and precancerous lesions on the cervix (opening between vagina and uterus), in the vagina and on the vulva (skin around the outside of the vagina) as well as genital warts. The vaccine cannot cause these diseases and cannot treat them if already present. Gardasil works best if given before contact with HPV. Most people are exposed to HPV soon after starting sexual activity. The vaccine is recommended between the ages of 9 and 45. Gardasil does not protect against all strains of HPV. Women who receive the vaccine still need to have regular pelvic exams and cervical cancer screening with the pap smear. You should ask your doctor if Gardasil is right for you if you have a weakened immune system, a bleeding disorder, plan to become soon or have a current illness causing fever. Gardasil is not recommended for women. You should be sure your doctor is aware of any allergies you have and all medications and herbal supplements you take. Gardasil is given to those ages 9-14 in 2 doses at 0 and 8 months. In ages 15-45, three injections are given at 0,2,6 months. Common side effects include pain, redness, itching and swelling at the injection site, nausea, fever, dizziness and fainting. Rare but potentially serious reactions have been reported. These include allergic reaction, swollen glands, joint and muscle pain, weakness and Guillain-Hazlehurst syndrome. documented in this encounter [facility] 10-08-2021 History of Present illness Narrative Oneyda is a 36 year old who presents for an annual gynecologic exam without complaints. Had surgery 05/2021 w/ MIGS for possible endometriosis. No definitive endo. Has been on agestin since, no menses. Doing well overall. Wants to be on something to help w/ menstrual symptoms. Was on ocps in the past and did well Menses: n/a. 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 laser treatment to genital warts PAST SURGICAL HISTORY OF 06/05/2021 laparoscopic excision fo endometriosis, right ureterlysis VAGINOSCOPY 02/17/2008 FAMILY HISTORY Problem Relation Age of Onset Hyperlipidemia Father Hypertension Father Arthritis Father Thyroid Mother Hypertension Mother Hyperlipidemia Mother Osteoporosis Mother arthritis as well other (Uterine fibroids) Mother Hypertension Brother Lipids Brother Arthritis Maternal Grandfather Hyperlipidemia Maternal Grandfather Heart Maternal Grandmother other (lupus) Maternal Grandmother Heart Paternal Grandfather MD Anesthesia Problems No Family History SOCIAL HISTORY Social History Tobacco Use Smoking status: Never Smokeless tobacco: Never Vaping Use Vaping Use: Never used Substance Use Topics Alcohol use: Yes Comment: seldom Drug use: Never REVIEW OF SYSTEMS Abdomen: No abdominal pain, nausea, vomiting, diarrhea, or constipation. No bloating, early satiety, indigestion, or increased flatulence. Bladder: No dysuria, gross hematuria, urinary frequency, urinary urgency, or incontinence. Breast: No breast lumps, nipple d/c, overlying skin changes, redness or skin retraction. Allergies and current medication updated:Yes EXAM: Ht 5' 6 (1.68m) Wt 194 lb (88.0kg) LMP 02/07/2021 BMI 31.33 kg/(m^2). GENERAL: pleasant, female in no apparent distress HEENT: Normocephalic, atraumatic, mucus membranes moist, and no lesions NECK: Supple, full range of motion, no adenopathy, and thyroid normal DERMATOLOGY: Normal, without lesions, non-icteric, and non-hirsute BREAST: soft, non-tender, symmetric, no dominant mass, normal nipple-areolar complex, no lymphadenopathy, and no nipple discharge CHEST: Normal inspiratory effort ABDOMEN: soft, non-tender, and no masses PELVIC: external genitalia normal, normal Bartholin's glands, urethra, Silerton's glands, no vulvar lesions, no cervical lesions, good vaginal support, physiologic discharge present, normal appearing perineal body and perianal region BIMANUAL: uterus normal size, shape and consistency, no adnexal masses, and non-tender RECTOVAGINAL: deferred. NEURO: alert and oriented x3,exam grossly non-focal EXTREMITIES: normal ASSESSMENT/PLAN: 1) Health maintenance: Pap/HPV up to date. Mammogram age39 HPV vaccine: ordered 2) Contraception: combined hormonal contraceptives. Contraceptive options reviewed and information provided. 3) STD screening: Declined STD check. 4) Follow up one year or sooner as needed restart ocps for menstrual regulation, d/c aygestin Abel Chou MD Patient identified by name and date of . Oneyda Mao is here for her HPV 9 vaccination, injection # one of the series. Patient ?No Gardasil injection was given without incident. See immunizations for details of immunizations administered today. VIS sheet provided: Yes Patient advised to follow up in 2 months from the 1st injection Provider Dr Chou was present in office at time of injection. bAel Chou MD documented in this encounter [facility] 07-05-2021 Nurse Note [employer] offered: Patient accepts, visit chaperoned by Marnie López MA. documented in this encounter [facility] 07-05-2021 History of Present illness Narrative Images from the original note were not included. [facility] SECTION FOR MINIMALLY INVASIVE GYNECOLOGIC SURGERY OUTPATIENT VISIT DATE 07/05/2021 OUTPATIENT VISIT TYPE POST OPERATIVE FOLLOW UP History: Oneyda Mao is a 36 year old female here for post operative follow up appointment. She underwent Laparoscopic excision of endometriosis, right ureterolysis on 06/05/21 indicated for endometriosis. She reports feeling good since her procedure. Her appetite is normal . She describes her pain as yes: Location: Umbilical, Severity: 1 after an weird stretch this morning. She is currently taking nothing for pain control. She has not had sexual intercourse since the procedure. Denies nausea/vomiting/chest pain/shortness of breath. Ambulating well. No issues with voiding or BMs. Operative findings included: A. Right ovarian fossa, biopsy: - Fibroadipose tissue with nonspecific chronic inflammation. B. Left uterine lesion, biopsy: - Fibrous tissue with nonspecific chronic inflammation. C. Anterior cul-de-sac, biopsy: - Fibrous tissue with nonspecific chronic inflammation and dystrophic calcification. D. Left uterosacral ligament, biopsy: - Fibroadipose tissue with nonspecific chronic inflammation The pathology report reveals: ROS: Constitutional: Denies fever or chills GI: Denies nausea, vomiting, bloody stools or diarrhea : Denies dysuria Integument: Denies rash Psychiatric: Denies depression or anxiety Exam: Vitals: 07/05/21 1338 BP: 112/70 Weight: 85.3 kg (188 lb) Height: 167.6 cm (5' 6) @HTWT@ Body mass index is 30.34 kg/m . Neuro/psych: Alert and oriented x 3 in a pleasant mood Skin: Warm, dry and intact Abdomen: Soft, non tender, non distended, no hepatosplenomegaly or hernias. Incision: Incisions are well healed, no hernias or evidence of infection. Pelvic: Def Assessment: Ms. Oneyda Mao is a 36 year old female presenting for postop check Plan: -May continue to increase physical activity as tolerated -May resume intercourse -Follow up with general provider for annual care -All questions answered and pt agrees with plan Easton Wiggins MD documented in this encounter [facility] 07-02-2021 Miscellaneous Notes The following approved medication requests have been transmitted electronically. Pending Prescriptions Disp Refills NORETHINDRONE ACETATE 5 MG TABLET 30 tablet 2 Sig: Take 1 tablet by mouth once daily. RIKA: No Yaritza Chandler APRN.CNP July 02, 2021 10:01 AM norethindrone (AYGESTIN) 5 mg tablet Requested by: Patient Routing to BRANDYN dale [facility] sent LV: 06/19/2021 Yaritza Chandler Virtual Visit Assessment and Plan Encounter Diagnosis ICD-10-CM 1. Postoperative state Z98.890 1) Discussed results of pathology and implications with patient. 2) Postop restrictions and wound care reviewed. 3) Keep follow up with Dr. Hayes on 07/05/2021. 4) Messaged Dr. Hayes Admin to assist with return to work papers. Shellie Stevens RN July 02, 2021 9:16 AM documented in this encounter [facility] 06-19-2021 History of Present illness Narrative Images from the original note were not included. [facility] PATIENT NAME: Oneyda Mao DATE: 06/19/2021 Patient Name and verified: Yes Patient Location: [place] This Virtual Visit was completed using My Chart Zoom platform. Chief Complaint CC/REASON FOR TELEVISIT: Post Op visit History of Present Illness: Oneyda is a 36 year old who presents for a post op [facility] visit. SURGERY & DATE: 06/05/2021 Laparoscopic excision of endometriosis, right ureterolysis with Dr. Hayes PATHOLOGY: FINAL DIAGNOSIS A. Right ovarian fossa, biopsy: - Fibroadipose tissue with nonspecific chronic inflammation. B. Left uterine lesion, biopsy: - Fibrous tissue with nonspecific chronic inflammation. C. Anterior cul-de-sac, biopsy: - Fibrous tissue with nonspecific chronic inflammation and dystrophic calcification. D. Left uterosacral ligament, biopsy: - Fibroadipose tissue with nonspecific chronic inflammation. SUBJECTIVE/INTERVAL HISTORY: Oneyda Mao reports that she feels well. No fever or chills. Temp 99.5F at times. No shortness of breath, cough, or chest pain. No incisional redness, swelling, or drainage. Patient reports that her appetite is good. No abdominal pain, nausea, vomiting, diarrhea, or constipation. No dysuria, gross hematuria, urinary frequency, urinary urgency, or incontinence. Still has same sort of pain, but it has decreased a lot. She is not taking OTC pain medication. She would like to go back to work. Past Medical History: PAST MEDICAL HISTORY Diagnosis Date Genital warts Hypercholesteremia 03/2015 LGSIL (low grade squamous intraepithelial dysplasia) 2008 Family History: Family History Problem Relation Age of Onset Hyperlipidemia Father Hypertension Father Arthritis Father Thyroid Mother Hypertension Mother Hyperlipidemia Mother Osteoporosis Mother arthritis as well other (Uterine fibroids) Mother Hypertension Brother Lipids Brother Arthritis Maternal Grandfather Hyperlipidemia Maternal Grandfather Heart Maternal Grandmother other (lupus) Maternal Grandmother Heart Paternal Grandfather MD Anesthesia Problems No Family History Past Surgical History: PAST SURGICAL HISTORY Procedure Laterality Date PAST SURGICAL HISTORY OF 2007? laser treatment to genital warts VAGINOSCOPY 2008 Social History: Social History Tobacco Use Smoking status: Never Smoker Smokeless tobacco: Never Used Vaping Use Vaping Use: Never used Substance Use Topics Alcohol use: Not Currently Drug use: Never Allergies: ALLERGIES No Known Allergies Allergies updated: Yes Medications: Current Outpatient Medications Medication Sig acetaminophen (TYLENOL EXTRA STRENGTH) 500 mg tablet Take 2 tablets by mouth every 6 hours as needed for pain. ibuprofen (MOTRIN) 600 mg tablet Take 1 tablet by mouth every 8 hours as needed for pain. oxyCODONE IR (ROXICODONE) 5 mg immediate release tablet Take 1 tablet by mouth every 8 hours as needed for pain. senna (SENNA) 8.6 mg tab Take 1 tablet by mouth twice daily. norethindrone (AYGESTIN) 5 mg tablet Take 1 tablet by mouth once daily. naproxen (NAPROSYN) 375 mg tablet Take 1 tablet by mouth three times daily as needed (pain). fluticasone (FLONASE) 50 mcg/actuation nasal spray Use 2 Sprays in each nostril once daily. Rinse mouth after use. No current facility-administered medications for this visit. Medications reviewed in detail and updated PRN. Yes Physical Exam: LMP 02/07/2021 GENERAL: pleasant, euthymic sounding female in no apparent distress Physical exam otherwise deferred Recent labs/Diagnostic studies: I have thoroughly reviewed this patients previous notes, encounters, labs, and results prior to this visit. Assessment and Plan Encounter Diagnosis ICD-10-CM 1. Postoperative state Z98.890 1) Discussed results of pathology and implications with patient. 2) Postop restrictions and wound care reviewed. 3) Keep follow up with Dr. Hayes on 07/05/2021. 4) Messaged Dr. Hayes Admin to assist with return to work papers. Appointments for Next 60 Days Date Time Provider Location Dept Phone 06/19/2021 11:00 AM YARITZA CHANDLER [facility] [phone] 07/05/2021 1:30 PM EASTON AMIN [facility] [phone] SIGNATURE: Yaritza Chandler APRN.CNP PAGER: [phone] documented in this encounter [facility] 06-05-2021 Note HNO ID: [id number] Author: Tanika Hagen DO Service: Anesthesiology Author Type: Resident Type: Anesthesia Procedure Notes Filed: 06/05/2021 11:49 AM Note Text: ANESTHESIOLOGY PROCEDURE NOTE Airway General Information Procedure Start Time/Medication Administration: 06/05/2021 11:44 AM Patient location during procedure: OR Timeout Performed Pre-procedure: timeout performed Consent Obtained: Yes 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, 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 Staffing Resident: Tanika Hagen DO Performed by: resident Indications and Patient Condition Preoxygenated: yes Patient position: sniffing Difficult Mask: No Indications for airway management: anesthesia anesthesia circuit Method: asleep Final Airway Details Final airway type: endotracheal airway Final Endotracheal Airway: ETT Successful intubation technique: direct laryngoscopy Endotracheal tube insertion site: oral Blade: [place] Blade size: #3.5 ETT size (mm): 7.0 Measured from: lips Measurement (cm): 22 Placement verified by: chest auscultation and capnometry Cormack-Lehane Classification: grade I - full view of glottis SIGNATURE: Tanika Hagen DO PATIENT NAME: Oneyda Mao DATE: June 05, 2021 TIME: 11:49 AM CSN: [id number] [facility] 05-23-2021 History and physical note HISTORY AND PHYSICAL EXAMINATION SERVICE DATE: 05/23/2021 SERVICE TIME: 10:47 AM PRIMARY CARE PHYSICIAN: Ketan Moffett DO REASON FOR VISIT: Oneyda Mao is a 36 year old female who is scheduled for LAPAROSCOPY WITH EXCISION OF ENDOMETRIAL LESIONS PELVIS at the request of Dr. Easton Wiggins for consultation. My final recommendation will be communicated back to the requesting physician by way of shared medical record or letter. The patient has the following: ACTIVE PROBLEM LIST Migraine Lightheadedness Situational Depression Hyperlipidemia, Mixed Well Adult Exam Tinnitus, Right Ear Subjective CHIEF COMPLAINT: Pre-op exam HPI: This is a 36 year old female who presents with history of chronic pelvic pain which has been present since October 2020.Describes pain as constant, dull and aching pain, rated at 2/10. Patient has tried Naproxen and heating pad for pain which provides temporary relief. Patient has not had a period since January 2021. Denies any recent fever or chills. Patient is scheduled for surgery on 06/06/19 PAST MEDICAL HISTORY Diagnosis Date Genital warts Hypercholesteremia 03/2015 LGSIL (low grade squamous intraepithelial dysplasia) 2008 PAST SURGICAL HISTORY Procedure Laterality Date PAST SURGICAL HISTORY OF 2007? laser treatment to genital warts VAGINOSCOPY 2009 FAMILY HISTORY Problem Relation Age of Onset Hyperlipidemia Father Hypertension Father Arthritis Father Thyroid Mother Hypertension Mother Hyperlipidemia Mother Osteoporosis Mother arthritis as well other (Uterine fibroids) Mother Hypertension Brother Lipids Brother Arthritis Maternal Grandfather Hyperlipidemia Maternal Grandfather Heart Maternal Grandmother other (lupus) Maternal Grandmother Heart Paternal Grandfather MD Anesthesia Problems No Family History SOCIAL HISTORY: Social History Tobacco Use Smoking status: Never Smoker Smokeless tobacco: Never Used Vaping Use Vaping Use: Never used Substance Use Topics Alcohol use: Not Currently Drug use: Never MEDICATIONS: Prior to Admission medications as of 05/23/21 1049 Medication Sig Last Dose Taking norethindrone (AYGESTIN) 5 mg tablet Take 1 tablet by mouth once daily. Taking Yes naproxen (NAPROSYN) 375 mg tablet Take 1 tablet by mouth three times daily as needed (pain). Taking Yes fluticasone (FLONASE) 50 mcg/actuation nasal spray Use 2 Sprays in each nostril once daily. Rinse mouth after use. No medication comments found. CURRENT ALLERGIES: ALLERGIES No Known Allergies COVID VACCINATION STATUS: Fully vaccinated REVIEW OF SYSTEMS: PAIN ASSESSMENT: Pain Pain Level: 2 Pain Location: Abdomen-Mid Lower Description: Dull Duration Units: Months Frequency: Intermittent Intervention/Comfort measure: Medication;Heat General: No weight loss, malaise or fevers. Neuro: No history of TIA's, stroke, TALENT ADVISOR tumor, impaired sensorium, hemiplegia, paraplegia or quadraplegia. No neurological symptoms or problems. Respiratory: +Covid, 04/01/21, mild case. All symptoms resolved Cardiovascular: No history of HTN requiring medication, no history of angina, CHF, MD, cardiac surgery or stents. Denies rest pain, gangrene or revascularization/amputation for PVD. No history of cardiovascular symptoms or problems. GI: No history of GI symptoms or problems. No history of esophageal varices, recent ascites, or ETOH greater than 2 drinks per day. : No history of dysuria, frequency or incontinence,, stones or chronic kidney disease Endocrine: No history of diabetes. Has not taken steroids within the past 30 days. No history of endocrinological symptoms or problems. Hematology: No history of bleeding or clotting disorder. Pt is not taking anti-coagulation or platelet medications. No history of hematological symptoms or problems. Oncology: No history of CA metastasis, chemo within 30 days, or radiotherapy within 90 days. Has not lost 10% of body wt in 6 months. No history of oncological symptoms or problems. Psych: No history of psychiatric symptoms or problems. Musculoskeletal: Negative for joint pain or swelling, back pain or muscle pain. Skin: Negative for lesions, rash and itching. Objective PHYSICAL EXAM: VITALS: BP 135/83 Pulse 108 Temp (Src) 98.5 (Temporal) Ht 5' 6 (1.68m) Wt 190 lb 3.2 oz (86.3kg) SpO2 99% LMP 02/07/2021 BMI 30.71 kg/(m^2). General: Alert and oriented, No acute distress, Healthy appearance Skin: Normal color, no rash, no lesions. HEENT: EOM, pupils equal, round and reactive., No carotid bruits Cardiovascular: Normal S1 & S2, no rubs, murmurs or gallops. No JVD. Pulse regular. Lungs: Normal breath sounds, no wheezes or crackles. Abdomen: Soft, non-tender, no rigidity., Positive bowel sounds Extremities: No deformity, no edema or tenderness, no joint swelling or clubbing. Neurological: Normal cognition and motor skills. Pulses: Carotid and radial pulses normal +2. Diagnostic tests reviewed for today's visit: Lab Value Units Date High Low HB No results within date range. HCT No results within date range. WBC No results within date range. PLT No results within date range. NA No results within date range. K No results within date range. GLUC No results within date range. BUN No results within date range. CREAT No results within date range. PTSEC No results within date range. INR No results within date range. APTT No results within date range. ALT No results within date range. AST No results within date range. TBILI No results within date range. TSH No results within date range. Lab Value Units Date High Low HCGQT No results within date range. UHCG No results within date range. HCG, BODY* No results within date range. Lab Value Units Date High Low ABORHD No results within date range. ABSCREEN No results within date range. Hemoglobin A1C (%) Date Value 11/16/2019 5.3 Most recent labs Most recent imaging Assessment/Plan Assessment: There is no known pertinent medical condition which may affect zenia-operative course METS: Climb a flight of stairs or walk up a hill (5.50 METs) Patient denies any chest pain or undue shortness of breath with the above physical activity. ASA Class: 2 ANESTHESIA FINDINGS: Intubation History: No history of difficult intubation Significant Anesthesia Considerations: None Airway Exam: General: Normal appearance Mallampati Score is CLASS I ULBT: Class I - Lower incisors can bite the upper lip above the prudencio line Neck: Normal appearance and function, Distance from hyoid to mentum during neck extension is at least 3 finger breaths Mouth: Normal tongue size and Mouth opening greater than 2 finger breaths Dentition: Intact Airway History: No abnormal airway history Sleep Apnea Probability Snores loudly: No Tired, fatigued or sleepy in daytime: Yes Stops breathing or choking/gasping during sleep: No High blood pressure: No Sleep Apnea Probability Score 05/21/2021 Sleep Apnea Screen V2 8.28 (Sleep study not recommended) PLAN This patient is optimally prepared for surgery pending LABS. CONSULTS: Patient does not require consults for optimization at this time. The Following Tests/Procedures Have Been Initiated: Labs per surgical service Planned Anesthetic: Per anesthesia choice Instructions Given to Patient: Instructions located in the after visit summary. Patient given verbal and written preop instructions and voices comprehension and compliance. SIGNATURE: Bekah Lopez PA-C PATIENT NAME: Oneyda Mao DATE: May 23, 2021 TIME: 4:15 PM documented in this encounter [facility] 05-23-2021 Instructions Bekah Lopez PA-C - 05/23/2021 10:50 AM EDT PATIENT PREOPERATIVE INSTRUCTIONS Easton Amin MD has scheduled you for your procedure at this surgery center: [facility] [phone] -- [place] [address]. Please read below carefully for your personalized instructions. Dietary Restrictions: - No solid food after midnight. - You may have 12 ounces of clear liquids (water, clear juices such as apple juice or gatorade, carbonated beverages, clear tea, black coffee, jello) until 2 hours before scheduled arrival at facility. Medications: Unless instructed differently below, stay on all of your medications until your surgery. Approved medications to take the morning of surgery with a sip of water: None If you start any new medications after today's visit, please contact the surgeon's office. Blood Thinning Medications: - Stop NSAIDS (Ibuprofen, Advil, Aleve, Motrin, Celebrex, Mobic, etc.) 7 days before surgery, as directed by your surgeon. - Stop Aspirin 7 days before surgery, as directed by your surgeon. - Stop Vitamin E, ALL multi-vitamins, herbals and dietary supplements 7 days before surgery. - You may take Tylenol (Acetaminophen) or any of your pain medications that do not contain aspirin or NSAIDS as needed. Important Reminders: - Candy, mints, and tobacco products are NOT permitted the morning of surgery. - Hearing aids, dentures and glasses may be worn the morning of surgery. - NO jewelry, body piercings, makeup, hairpins or contacts are to be worn the day of surgery. If you develop symptoms such as a fever, cold, or flu, or have other changes to your health within TWO DAYS of scheduled surgery or the morning of surgery, please contact the surgery center above. Personal Belongings: -Please have photo ID and insurance cards. -If you do not have a copy of advance directives on file with us, please bring a copy with you on the day of surgery. - Leave ALL valuables and money at home or with family members. For Outpatient Procedures: - YOU MUST HAVE A RESPONSIBLE HOME SECURITY ALARM INSTALLER TAKE YOU HOME. A RECREATION ATTENDANT OR COTTON PICKER CANNOT BE MADE A RESPONSIBLE HOME SECURITY ALARM INSTALLER. - We recommend that a responsible person stays with you overnight to take care of you. - You cannot stay in a hotel alone after outpatient surgery. You will not be permitted to have your surgery, if you do not have someone to take care of you. Arrival Time for Surgery: - The Surgery Center or hospital where you are having surgery will call the afternoon before surgery (or Thursday for Thursday surgery) with a scheduled arrival time. - If you have not heard by 4 pm, please contact the surgery center above. Please be aware that emergency situations arise, which may delay or change your surgical time. If this happens, we will notify you as soon as possible and regret any inconvenience. If you already have an Advance Directive, please fax a copy to [phone] or email to for it to be added to your chart. If you do not have an Advance Directive, you can find the appropriate form and more information at [email or web address]. We recommend that you complete the Advance Directive form found on the website and bring it with you the day of your surgery. It can be witnessed and scanned into your chart that day. Bekah Lopez PA-C documented in this encounter [facility] 05-23-2021 History of Present illness Narrative Images from the original note were not included. [facility] SECTION FOR MINIMALLY INVASIVE GYNECOLOGIC SURGERY OUTPATIENT VISIT DATE 05/23/2021 OUTPATIENT VISIT TYPE HISTORY AND PHYSICAL Referring MD: Easton Wiggins [address] [facility] [address] HPI: Oneyda Mao is a 36 year old female patient followed in Minimally Invasive Gynecologic Surgery for preoperative history and physical for upcoming Procedure: LAPAROSCOPY WITH EXCISION OF ENDOMETRIAL LESIONS PELVIS,LAPAROSCOPIC SALPINGECTOMY After thorough discussion of options, she is scheduled for the above described procedure with Dr. Easton Wiggins On Her preoperative work up has included the following: MRI/MRCP: RESULT: Uterus: Size: 2.8 x 6.6 x 3.6 cm Orientation: Anteverted Endometrium: Maximum width measures 2 mm. No lesion. Junctional zone: Maximum thickness 7 mm. Homogeneous T2 hypointensity. Cervix: Normal. Leiomyomas: None Adenomyomas: None Ovaries: Normal in size and morphology with physiologic follicles. Fallopian tubes: Multilobulated overall tubular shaped fluid-filled structures bilaterally are consistent with complex bilateral hydrosalpinx, likely with some layering internal blood products. No measurable solid enhancing lesion. Endometriosis: No definitive deep infiltrating endometriosis. Pelvic free fluid: Trace, likely physiologic Lymph nodes: No lymph nodes enlarged by size criteria. Bones: Normal marrow signal. Misc: Nothing to note. EMB results: NA PAST MEDICAL HISTORY Diagnosis Date Genital warts Hypercholesteremia 03/2015 LGSIL (low grade squamous intraepithelial dysplasia) 2008 PAST SURGICAL HISTORY Procedure Laterality Date PAST SURGICAL HISTORY OF 2007? laser treatment to genital warts VAGINOSCOPY 2008 Current Outpatient Medications on File Prior to Visit Medication Sig norethindrone (AYGESTIN) 5 mg tablet Take 1 tablet by mouth once daily. naproxen (NAPROSYN) 375 mg tablet Take 1 tablet by mouth three times daily as needed (pain). fluticasone (FLONASE) 50 mcg/actuation nasal spray Use 2 Sprays in each nostril once daily. Rinse mouth after use. No current facility-administered medications on file prior to visit. ALLERGIES No Known Allergies Immunization History Administered Date(s) Administered COVID-19 vaccine, full dose (MODERNA) 05/16/2020 06/13/2020 01/25/2021 Influenza Seasonal Inj Age 3+ 12/16/2016 Influenza Seasonal Inj Quad Age 6 Mo - 64 Yrs 01/22/2018 02/15/2019 11/18/2019 12/26/2020 Influenza Seasonal Inj Quad Age 6 Mo-64 Yrs Pres Free 12/16/2016 Influenza Seasonal Trivalent Inj Pres Free 11/28/2014 Tdap (Age 7+) 12/26/2020 Social History Social History Narrative Not on file FAMILY HISTORY Problem Relation Age of Onset Thyroid Mother Hypertension Mother Hyperlipidemia Mother Osteoporosis Mother arthritis as well other (Uterine fibroids) Mother Hyperlipidemia Father Hypertension Father Arthritis Father Hypertension Brother Lipids Brother Heart Maternal Grandmother other (lupus) Maternal Grandmother Arthritis Maternal Grandfather Hyperlipidemia Maternal Grandfather Heart Paternal Grandfather MD OB History T0 L0 SAB0 IAB0 Ectopic0 Multiple0 Live Births0 OB History T0 L0 SAB0 IAB0 Ectopic0 Multiple0 Live Births0 Patient's last menstrual period was 02/07/2021. Review of Systems: POSITIVES IN BOLD Constitutional: Denies fever or chills Eyes: Denies change in visual acuity HENT: Denies nasal congestion or sore throat Respiratory: Denies cough or shortness of breath Cardiovascular: Denies chest pain or edema GI: Denies abdominal pain, nausea, vomiting, bloody stools or diarrhea : Denies dysuria Musculoskeletal: Denies back pain or joint pain Integument: Denies rash Neurologic: Denies headache, focal weakness or sensory changes Endocrine: Denies polyuria or polydipsia Lymphatic: Denies swollen glands Psychiatric: Denies depression or anxiety Physical Exam: There were no vitals filed for this visit. @HTWT@ There is no height or weight on file to calculate BMI. General Appearance: WDWN, NAD Psychiatric: Normal orientation, mood and affect Neck: Thyroid normal, no masses Breasts: Deferred Skin:No rashes, lesions, or ulcers Lymph: Normal neck, cervical, groin, and axillae C/V: Normal heart sounds, no murmurs or external edema Lungs: Respiratory effort normal. Lungs clear bilaterally. Abdomen: Benign, soft, non-tender, no hernia, masses, or lymphadenpathy Pelvic examination: Def Assessment and Care Plan: Oneyda Mao is a 36 year old with pelvic pain who has tried or refused conservative therapies and would like to proceed with surgical management in the form of Laparoscopic bilateral salpingectomy, possible excision of endometriosis, possible appendectomy scheduled with Dr.Miguel Dontae Wiggins on 06/05/2021 CONSENT: The risks, benefits and alternatives as well as the indications of her planned surgery were reviewed with the patient today. Risks including but not limited to the following were outlined in detail: Bleeding rarely requiring blood transfusion with the associated risk of viral transmission of Hepatitis 1/700,000, HIV 1/2,000,000. The risks and benefits of autologous blood transfusion with predonation were also discussed. Infection requiring antibiotics, potential prolonged or re-hospitalization as well as possible re-operation. Damage to adjacent organs including but not limited to: bladder, bowels, ureters (tubes that connect kidneys to bladder), pelvic organs (ovaries, fallopian tubes, uterus or womb), blood vessels and nerves, with the possibility of re-operation. Medical complications associated with surgery and anesthesia including but not limited to: deep vein thromobosis (DVT, or blood clot in the leg), pulmonary embolus (PE, blood clot in the lungs), heart attack, stroke, or . All questions were answered to the patient s satisfaction and the informed consent as well as consent for blood transfusion was signed today. The risks and benefits of autologous blood transfusion were also reviewed and the patient has declined this option. The risks, benefits and alternatives of the planned procedure have been discussed with the patient and/or her legal dental detail representative, all questions have been answered and she agrees to proceed. Easton Wiggins MD documented in this encounter [facility] 05-23-2021 History of Present illness Narrative Patient was scheduled for preop EMB. Upon review, she is having lap excision of endometriosis. No preop EMB required. No charge visit. Yaritza Chandler APRN.CNP May 23, 2021 10:12 AM documented in this encounter [facility] 05-23-2021 History of Present illness Narrative DATE OF SERVICE: 05/23/2021 PROBLEM: Oneyda Mao presents for pre-op teaching. PRE-OP DIAGNOSIS: Pelvic pain in female, hematosalphinx SCHEDULED SURGERY AND DATE: LAPAROSCOPY WITH EXCISION OF ENDOMETRIAL LESIONS PELVIS and LAPAROSCOPIC SALPINGECTOMY on 06/05/2021. PRIMARY SURGEON: Easton Wiggins MD NURSING PREOP ASSESSMENT: Fevers, chills, cough, or nasal congestion: No Vaginal itching, burning, discharge, or odor: No Pain with urination, frequency, urgency, cloudy or foul smelling urine: No If yes to any of the above then MD notified: Not Applicable ADVANCED CARE PLANNING: Does the patient have an advanced directive: No Does [facility] have a copy of the patient's advanced directive: No Was advanced directive given to the patient: No PATIENT LEARNING ASSESSMENT: Individual patient/family learning needs evaluated and addressed: Yes Cognitive ability: Alert and oriented Motivation to learn: Eager Interested Factors affecting learning: None Physical limitations affecting learning: None Patient learns best by: Individual Instruction Written Instruction - Hand-outs Verbal Instruction Method of instruction: Teach Back asks appropriate questions Individual instruction Written instruction - handouts Verbal instruction Instructions provided to: Patient and friend/other via face to face discussion Family support: High - Very involved in pt care PRE- AND POST-OPERATIVE TEACHING Pre-operative teaching and supplemental material provided and reviewed with patient: Your Surgical Guide Book Map Written pre-op and post-op instructions Antibacterial soap: given to patient today Pre-operative instructions provided and reviewed with patient/family: No eating, drinking, or smoking after midnight prior to surgery unless otherwise directed No alcohol the day before surgery Medications as prescribed by anesthesia, internal medicine, surgeon, or LAB PACK CHEMIST Stop NSAIDs, Aspirin (ASA), vitamins, herbal supplements, herbal teas, and diet pills 7-10 days prior to surgery OK to take tylenol prn pain unless otherwise directed by physician Call surgery coordinators if any other questions about surgery date or pre-op appointments Bowel prep instructions: NPO after midnight Day of surgery instructions provided and reviewed with patient/family: Arrival time (call surgical coordinators on the office day prior to surgery for verification) No jewelry, body piercing, makeup, contacts, lotions, nail lebanese on fingers, or anything in hair on arrival to surgery Wear low healed shoes and loose fitting clothing Leave all valuables at home or with a family member Directions to [facility] and the [facility] Parking/parking validation on the day prior to surgery Admission/check in (desk P-20 or J1-1) Holding area Placement of IV Surgical positioning Family waiting area Surgical recovery room Post-operative instructions provided and reviewed with patient/family: SEE PATIENT INSTRUCTION SECTION FOR DETAILS. SYMPTOMS TO NOTIFY MD - Fever, chills, nausea, vomiting, increased or severe pain, heavy vaginal bleeding, foul smelling vaginal drainage, pain or swelling in extremities. URGENT SYMPTOMS - Call 911 or go to ER if any shortness of breath, difficulty breathing, or chest pain. HOW TO CONTACT PHYSICIAN - Physician's office phone number given to patient, if after hours patient instructed to call industrial gas production operator and ask for train control electronic technician molding utility worker onc resident. TYLER program offered to patient: Yes Additional teaching as indicated by patient/family learning needs. PATIENT LEARNING EVALUATION & FOLLOW UP PLAN: Patient and/or family express understanding of upcoming surgery, pre-operative preparation, the operative process, and post-operative instructions. Follow up plan: Patient instructed to call with any further issues Patient has a post-op appointment scheduled: Yes, 06/19/2021 & 07/05/2021. Referral (recommentation): None Educator: Stephanie Patterson RN [facility] documented in this encounter [facility] 05-22-2021 Instructions Stephanie Patterson RN - 05/22/2021 4:26 PM EDT Images from the original note were not included. MINIMALLY INVASIVE GYNECOLOGIC SURGERY (MIGS)/BENIGN GYNECOLOGY CONTACTS: Surgeons: Dr. Iraida Jacob Dr. Janessa Angeles Dr. Ami Bonilla Dr. Easton Wiggins Dr. Andria Gold Dr. Omayra Wise Dr. Jennifer Ramirez [facility] Nurse Practitioners: Tracey Weinberg, MATCH MARKER.BOWLING ALLEY OPERATOR Yaritza Chandler MATCH MARKER.BOWLING ALLEY OPERATOR Paty Ray, MATCH MARKER.BOWLING ALLEY OPERATOR Vivi Leon, MATCH MARKER.BOWLING ALLEY OPERATOR Surgery Scheduling Office: Call the day before surgery after 2pm for your surgery arrival time After hours phone number: or toll free Ask the industrial gas production operator to page the molding utility worker train control electronic technician.' Business hours are Thursday - Thursday from 8:00am - 4:30pm. We are closed on weekends and major holidays. PRE-OPERATIVE CHECKLIST: PATIENT INSTRUCTIONS PRIOR TO SURGERY Our guidelines have changed, so please read these instructions carefully. Your surgery may be cancelled if you do not follow these instructions. MY ARRIVAL TIME IS: I have been instructed not to have any solid food to eat after midnight prior to my surgery (this includes no gum, mints, smoking). I am allowed to drink small amounts (up to 12 oz) of clear liquids up until 2 hours prior to my arrival time. Clear liquids include water, fruit juices without pulp, carbonated beverages (i.e. dioni branden), electrolyte beverages (i.e. Gatorade), clear tea and black coffee, clear broth, popsicles and jello. (No milk). No alcohol the day before or day of surgery. I will bring this binder to all pre and post-operative appointments AND day of surgery. MEDICATION STOPPAGE: Unless my surgeon tells me differently, I will STOP THESE MEDICATIONS 7 DAYS PRIOR TO SURGERY: (Motrin/ibuprofen/Naproxen/Aleve /Advil), Aspirin, vitamin E, herbal medications, diet pills, and [id number] medications. Tylenol (acetaminophen) is okay. I will not wear jewelry, body piercing(s), makeup, nail lebanese, hairpins, or contacts on the day of surgery. I am to leave valuables and money at home or with family members. If I am prescribed inhalers for breathing, I will use them and bring them to the hospital. Medication(s) to be taken on the morning of surgery with a few sips of water: If I am taking any of the following blood thinning medications Aspirin, clopidogrel (Plavix), ticagrelor (Brilinta), prasugrel (Efficient), ticlodipine (Ticlid), warfarin (Coumadin), dibigatran (Pradaxa) or rivaroxaban (Xarelto) - I will discuss whether or not I should stop them before surgery with my surgeon. Discuss medication changes with your tinner helper or primary care physician as well. If I stopped taking my blood-thinning medication, I will ask the surgeon when to resume taking it. If I am an outpatient, a responsible person will drive me home and it was suggested that someone stay with me for 24 hours. I understand that a business office associate or cabdriver is NOT a responsible caregiver. Patients with diabetes, I will not take my morning diabetes medication (pills) on the morning of surgery. If I am on insulin, someone has gone over those instructions with me for the morning of surgery. I understand if my surgery is delayed, I will notify the check in desk that I have diabetes. See the Diabetic Guidelines Before Surgery in the patient education section. If I have Obstructive Sleep Apnea and use a CPAP/BiPAP machine, I will bring my mask, tubing, and machine with me on the day of surgery. Pain management education material found in Your Surgical Guide was reviewed with me. To find out my arrival time for surgery, I must call my electrotyper helper after 2pm the day before surgery. Pre-operative instructions given by: PREOP INSTRUCTIONS THE DAY OF SURGERY/CHECK IN - Report to DESK P20 located in the surgery center (unless otherwise instructed to go to J1-1). A map is located in Your Surgical Guide Book. - The online version of the surgical guide book can be found at: [email or web address] - The address of the surgical center is: [address] [place] [address] INFECTION PREVENTION - Please notify your doctor if you have any signs of an infection (i.e. fever, severe cough, nasal congestion, pain with urination, abnormal vaginal discharge, diarrhea, etc). - Your surgeon will let you know if a bowel prep is needed before your surgery. If so, please see the attached instructions. - Shower the night before surgery AND the morning of surgery with Hibiclens (provided by your surgeon). If you are allergic to Hibiclens or unable to obtain the Hibiclens, please wash with antibacterial soap. Wash your body from the neck down, focusing on your abdomen, belly button and external genitalia. Do not forget to scrub any skin folds and creases. - No lotions, oils, creams, or powders after your shower. Underarm deodorant is okay. - No shaving (abdominal or pubic hair) or douching the day before surgery. - You may be asked to apply an antiseptic solution called Chlorhexidine Gluconate (CHG) which will be provided to you on arrival to the preop area. - Hand washing is extremely important in preventing infection (for both you as the patient and for the caregivers). HOSPITALIZATION - Before you leave the hospital, you typically need to be able to eat/drink, urinate, and have your pain controlled with oral medication. Your surgeon or other members of your surgeon s team will discuss any other specific medical issues related to your discharge with you. - Your surgeon may order intermittent compression sleeves. These are massaging leg pumps to help prevent blood clots after surgery. See Your Surgical Guide Book for more information. - It is also very important that you walk as soon as possible and as frequently as possible after surgery. This will help decrease your risk of blood clots, exercise your lungs and speed up your recovery after surgery. - If you are admitted to the hospital overnight, you will be given an incentive spirometer, which is a breathing machine that will help make sure that you are taking deep breaths and expanding your lungs while in the hospital. See Your Surgical Guide Book for more information. [facility] TEAM - At the [facility], we have a multidisciplinary team of caregivers that includes fellows, residents, nurse practitioners, physician assistants, clinical nurse specialists, nurses, medical assistants, patient care nursing assistants, social workers, housing case manager and many others. We all have different roles and responsibilities but we are all here to help. MINIMALLY INVASIVE LAPAROSCOPY POSTOPERATIVE INSTRUCTIONS ACTIVITY * No heavy lifting/pushing/pulling for 6 weeks. Do not lift anything more than 10 lbs (such as laundry, groceries, children, pets), vacuum, push heavy doors or grocery carts, etc, for 6 weeks. * You may climb stairs as tolerated. * Do not put anything in the vagina for 2 weeks after surgery unless otherwise instructed by your doctor (including tampons, douching, sexual intercourse, etc). * No driving for 1 week after surgery and not while taking narcotic pain medication. Drive defensively when you are ready. * Avoid sitting or lying in bed for more than 2 hours at a time while you are awake to reduce your risk of blood clots. * You may return to work when you are ready as long as you do not lift more than 10 pounds for 6 weeks. If you have a sedentary job or technicians and trades workers 1-2 weeks before returning to work is appropriate. You may return to work in 2-4 weeks if your job requires a lot of movement. Please contact your doctor if you need any return to work letters or medical leave paperwork to be completed. WOUND CARE * You will have small incisions on your abdomen. There will be dissolvable stitches under your skin that do not need to be removed. If you have a piece of gauze with a clear bandage over your belly button, please remove that the day after surgery when you shower. If you have steri-strips (paper tape) on the incisions, these may be removed in about 1-2 weeks. It is OK to remove them if they are falling off. If skin glue is present, leave in place for at least 2 weeks. * Shower daily after surgery. Clean your incision with mild antibacterial soap and water. Pat your incision dry with a clean towel. No tub baths or swimming pools for six weeks or until wound is completely healed. * No ointments or antibacterial creams are required for incisions. Do NOT use cleansing agents like alcohol or hydrogen peroxide. * Wash your hands frequently, especially before touching your incision or changing any dressings. PAIN MANAGEMENT * Take your oral pain medication as needed. * Alternate Tylenol and ibuprofen/Motrin (if you are eligible). Each of these medications can be taken every six hours. Try to stagger them so that you are taking something for pain every three hours (ex. Take Motrin at 12:00, Tylenol at 3:00, Motrin at 6:00, etc.) to maximize pain relief. You should be taking 600mg of ibuprofen every 6 hours. You should be taking 1,000mg of tylenol every 6 hours. You should take every 6 hours with staggering and alternating. For example. 9am - ibuprofen 12pm - tylenol 3pm - ibuprofen 6pm - tylenol 9pm - ibuprofen 12am - tylenol 3am - ibuprofen 6am - tylenol Studies show this is as effective as narcotics for pain control without the side effects. Dosages * Tylenol 500-650 mg every 6 hours as needed * Motrin - 600 mg every 6 hours as needed * The maximum dose of Tylenol is 3000 mg in 24 hours, the maximum dose of Motrin/ibuprofen is 2400mg in 24 hours * Some pain medications can cause constipation. We recommend a stool softener (i.e. Colace) while you take these medications. * You may also take milk of magnesia or Miralax for constipation as directed on the bottle. * There is a risk for addiction with narcotic pain medication, so take with caution and do not take more than the recommended amount. * Please be sure to dispose of leftover pain medication after you have recovered. You may dispose of unused narcotic medications in the trash with an unpleasant substance such as coffee grounds or cat litter or you can turn them in to a designated law enforcement/pharmacy narcotic box. You can also check FDA.gov to assess which medications can be safely flushed down the toilet. * There are locations to dispose of unused medications at three [facility] locations: [facility] pharmacy, [facility] pharmacy, and the Pharmacy at the [facility] for [facility] (inside the parking garage on the first floor). WHAT TO EXPECT AT HOME * Recovery from surgery is generally 2-4 weeks, but sometimes longer for more strenuous activity. It is normal to be very tired during this time. * It is normal to have some drainage or a small amount of vaginal bleeding after surgery that would require the use of a light pantiliner. This discharge may last up to 6 weeks. The bleeding and discharge should be light and should have no odor. * You may experience gas pain, abdominal swelling, or shoulder pain for 24-72 hours after surgery. This is from the carbon dioxide gas put into your abdomen to better visualize your organs. A warm shower, heating pad, and/or walking may help. WHEN TO CALL YOUR DOCTOR: * Fever (>100.4 F or 38.0 C) or chills. * Incision problems such as redness, warmth, swelling, or foul smelling drainage. * Severe nausea or persistent vomiting. * Bright red vaginal bleeding (soaking >1 pad/hour) or foul smelling vaginal drainage. * IT IS NORMAL TO HAVE A MINIMAL AMOUNT OF VAGINAL SPOTTING OR VAGINAL DISCHARGE FOR SEVERAL WEEKS * Severe pain not relieved with pain medication. * Pain and swelling in your legs, especially if it is only on one side. * Pain with urination, cloudy urine, or foul smelling urine. * Severe redness/irritation at sites where adhesive bandages were applied. * Or if you have any other problems or questions. FREQUENTLY ASKED QUESTIONS/CONCERNS: Constipation Constipation is common and it is normal to not have a bowel movement for up to one week after surgery. You should still be passing gas despite constipation and should be able to tolerate both liquid and solid food without nausea or vomiting. Concerning symptoms would be constipation without gas, with fever, or nausea/vomiting and inability to eat. Call your doctor if these symptoms occur. Over the counter stool softeners including Colace twice daily and Miralax up to twice daily can help with constipation. 1. Senna (1 capsule) two times a day 2. Miralax (polyethylene glycol) 17 g (1 measured capful or 1 packet) once a day. If you have not had a bowel movement 3 days after surgery, you may take the Miralax two times a day. If you have any discomfort because of the need to have a bowel movement, you may add milk of magnesia or magnesium citrate (available at your local pharmacy without a prescription) at any time. Do not take milk of magnesia or magnesium citrate if you have kidney failure. If you have loose or watery stools, stop taking the medications. Call your doctor s office if you have questions. Drainage from incisions Clear/pink drainage or a minimal amount of bleeding from incisions can be normal after laparoscopic surgery. Concerning drainage that is persistent, thick/cloudy, or foul smelling can be an indication of infection and should prompt you to call your doctor. Post-operative pain Pain after surgery is a challenging part of the healing process. Pain may be present for weeks but should gradually get better. Increasing pain or pain that is unbearable warrants evaluation by your doctor or in the emergency department. By state law we cannot immediately provide narcotic pain medication over the phone. Stitches If 2 weeks have passed and you have a visible stitch at a laparoscopic incision site it is OK for you to cut it to remove it. CALL 911 OR GO TO THE EMERGENCY ROOM IF YOU HAVE: Any shortness of breath, difficulty breathing, or chest pain. IF YOU FEEL YOU NEED TO GO TO THE EMERGENCY DEPARTMENT POST OPERATIVELY, WE RECOMMEND THE [facility] FOR CONTINUITY OF CARE AND THE BEST ACCESS TO ONE OF THE SURGEONS ON OUR TEAM. Address: [address] [place] [address] documented in this encounter [facility] 05-20-2021 Instructions Yaritza Chandler APRN.CNP - 05/20/2021 5:17 PM EDT YOUR RECOVERY After your biopsy you may have: Vaginal bleeding (less than a normal menstrual period) Mild cramping Do NOT put anything in the vagina for 1 week after your endometrial biopsy. This includes: tampons douches and refraining from having sexual intercourse If you have any discomfort, you may take an over the counter pain medication (motrin, advil, ibuprofen, tylenol, etc). If this does not relieve your discomfort, contact the office. It is okay to wear a sanitary pad until the discharge and spotting stops. RISKS Although problems seldom occur with endometrial biopsies, there can be some complications. You may feel faint during and shortly after the procedure as well as have some bleeding after the procedure. There is also a risk of infection after the procedure. These complications are rare and can be easily treated. You should contact you doctor is you have any of the following: Heavy bleeding (more than your normal period) Bleeding with clots Severe abdominal pain Fever (more than 100.4F) Foul smelling vaginal discharge RESULTS We will have the results of your biopsy in 1-2 weeks. If you do not hear the results of your biopsy after 2 weeks, please contact the office for the results. If you have any additional questions or concerns please do not hesitate to contact the office. documented in this encounter [facility] 01-31-2021 History of Present illness Narrative Radiology Service Progress Note DATE OF SERVICE: January 31, 2021 TIME: 9:19 AM PATIENT WEIGHT: LBS PATIENT IDENTITY VERIFICATION COMPLETED USING TWO (2) STANDARD IDENTIFIERS: Name and Date of confirmed by patient verbally. FALL SCREENING: Has the patient had 2 falls in the last year or 1 fall with injury or currently using an Ambulatory Assistive Device (Walker, Cane, Wheelchair, Crutches, etc.)? No PATIENT GENDER DATA: Female. status: : No status: NO. ALLERGIES: Reviewed and unchanged CONTRAST ALLERGY: No EXAM: MRI - CONTRAST TYPE: GROUP II IV SITE: Ambulatory: A peripheral IV was started in the Right antecubital site with a Angio cath: 22 gauge. and A Saline lock was inserted per protocol IV SITE APPEARANCE: Clean,Dry and Intact SIGNATURE: Laura Mares RN PATIENT NAME: Oneyda Mao DATE: January 31, 2021 TIME: 9:19 AM Radiology Service Progress Note PATIENT NAME: Oneyda Mao DATE OF SERVICE: January 31, 2021 TIME: 10:19 AM PATIENT IDENTITY VERIFICATION COMPLETED USING TWO (2) IDENTIFIERS: Name and Date of confirmed by patient verbally. FALL SCREENING: Has the patient had 2 falls in the last year or 1 fall with injury or currently using an Ambulatory Assistive Device (Walker, Cane, Wheelchair, Crutches, etc.)? No PATIENT GENDER DATA: Female. status: : No status: NO. PATIENT RELEVANT IMPLANT DATA REVIEWED: Not Applicable RADIOLOGY DEPARTMENT: MR; Exam(s) Completed: Body: Female Pelvis PERIPHERAL IV DATA: Site assessment: Clean,Dry and Intact, Site disposition Discontinued SIGNED BY: RT Elaine(R) January 31, 2021 10:19 AM documented in this encounter [facility] Evaluation note Diagnosis Educational circumstances- Primary Educational circumstance Pelvic pain in female Unspecified symptom associated with female genital organs Hematosalpinx Other noninflammatory disorder of ovary, fallopian tube, and broad ligament [facility] Diagnosis Pelvic pain in female- Primary Unspecified symptom associated with female genital organs Hematosalpinx Other noninflammatory disorder of ovary, fallopian tube, and broad ligament Pelvic pain in female Unspecified symptom associated with female genital organs Hematosalpinx Other noninflammatory disorder of ovary, fallopian tube, and broad ligament [facility]* Diagnosis examination or test, negative result- Primary Pelvic pain in female Unspecified symptom associated with female genital organs Hematosalpinx Other noninflammatory disorder of ovary, fallopian tube, and broad ligament [facility] this [facility]* Diagnosis Pre-op evaluation- Primary Preoperative examination, unspecified Chronic pelvic pain in female Unspecified symptom associated with female genital organs Pelvic pain in female Unspecified symptom associated with female genital organs Hematosalpinx Other noninflammatory disorder of ovary, fallopian tube, and broad ligament [facility] this [facility]* Diagnosis Postoperative state- Primary Other postprocedural status documented in this encounter [facility] note* Diagnosis Pelvic pain in female Unspecified symptom associated with female genital organs Hematosalpinx Other noninflammatory disorder of ovary, fallopian tube, and broad ligament [facility] this [facility]* Diagnosis Postoperative state- Primary Other postprocedural status [facility] this [facility]* Diagnosis Encounter for gynecological examination (general) (routine) without abnormal findings- Primary Pelvic pain in female Unspecified symptom associated with female genital organs Hematosalpinx Other noninflammatory disorder of ovary, fallopian tube, and broad ligament Need for prophylactic vaccination/inoculation against viral disease Need for prophylactic vaccination and inoculation against other viral diseases documented in this encounter [facility] note* Diagnosis Need for prophylactic vaccination/inoculation against viral disease- Primary Need for prophylactic vaccination and inoculation against other viral diseases documented in this encounter [facility] note* Diagnosis Need for prophylactic vaccination/inoculation against viral disease- Primary Need for prophylactic vaccination and inoculation against other viral diseases [facility] this [facility]* Diagnosis Situational depression- Primary Adjustment disorder with depressed mood Situational anxiety Other anxiety states Concentration deficit Attention or concentration deficit documented in this encounter [facility] note* Diagnosis Sleeping difficulties- Primary Sleep disturbance, unspecified Fatigue, unspecified type Restless legs Restless legs syndrome (RLS) Hyperlipidemia, mixed Mixed hyperlipidemia [facility] this [facility]* Diagnosis Elevated TSH- Primary Nonspecific abnormal results of thyroid function study Iron deficiency Iron deficiency anemia, unspecified Elevated lymphocyte count Lymphocytosis (symptomatic) Fatigue, unspecified type Cold intolerance Other general symptoms Dry skin Other specified disease of sebaceous glands Brittle nails Other specified disease of nail Sleep disorder Sleep disturbance, unspecified [facility] Diagnosis Encounter for gynecological examination (general) (routine) without abnormal findings- Primary Encounter for surveillance of contraceptive pills Surveillance of previously prescribed contraceptive pill [facility] Diagnosis Subclinical hypothyroidism- Primary Other specified acquired hypothyroidism [facility] Diagnosis Subclinical hypothyroidism- Primary Other specified acquired hypothyroidism [facility] Diagnosis Pelvic and perineal pain Unspecified symptom associated with female genital organs Hydrosalpinx Chronic salpingitis and oophoritis [facility] Diagnosis Situational depression Adjustment disorder with depressed mood Situational anxiety Other anxiety states [facility] Diagnosis Snoring- Primary Other dyspnea and respiratory abnormality Need for influenza vaccination Need for prophylactic vaccination and inoculation against influenza Hypersomnolence Hypersomnia, unspecified Fatigue, unspecified type Need for COVID-19 vaccine Subclinical hypothyroidism Other specified acquired hypothyroidism Iron deficiency Iron deficiency anemia, unspecified Situational anxiety Other anxiety states Impaired concentration [facility] Diagnosis Well adult exam- Primary Routine general medical examination at a health care facility Vitamin D deficiency Unspecified vitamin D deficiency Subclinical hypothyroidism Other specified acquired hypothyroidism Impaired concentration CRP elevated Elevated C-reactive protein (CRP) Dyslipidemia Other and unspecified hyperlipidemia Situational anxiety Other anxiety states [facility] Diagnosis Situational depression Adjustment disorder with depressed mood Situational anxiety Other anxiety states [facility] Diagnosis Subclinical hypothyroidism- Primary Other specified acquired hypothyroidism Attention deficit disorder (ADD) without hyperactivity Dyslipidemia Other and unspecified hyperlipidemia [facility] Diagnosis Headache, worsening- Primary Headache Attention deficit disorder (ADD) without hyperactivity Subclinical hypothyroidism Other specified acquired hypothyroidism Fatigue, unspecified type Chronic insomnia Insomnia, unspecified [facility] Diagnosis Encounter for gynecological examination (general) (routine) without abnormal findings- Primary Encounter for screening mammogram for breast cancer Need for influenza vaccination Need for prophylactic vaccination and inoculation against influenza Need for COVID-19 vaccine [facility] Diagnosis Headache behind the eyes Headache documented in this encounter [facility]* Diagnosis Attention deficit disorder (ADD) without hyperactivity- Primary Headache behind the eyes Headache Subclinical hypothyroidism Other specified acquired hypothyroidism Fatigue, unspecified type Situational anxiety Other anxiety states documented in this encounter [facility] note* Diagnosis Situational depression Adjustment disorder with depressed mood Situational anxiety Other anxiety states documented in this encounter [facility] note* Diagnosis Subclinical hypothyroidism Other specified acquired hypothyroidism documented in this encounter [facility] note* Diagnosis Encounter for screening mammogram for breast cancer documented in this encounter [facility] note* Diagnosis Abnormal mammogram- Primary Abnormal mammogram, unspecified documented in this encounter [facility] note* Diagnosis Headache, worsening Headache Attention deficit disorder (ADD) without hyperactivity documented in this encounter [facility] note* Diagnosis Abnormal mammogram Abnormal mammogram, unspecified documented in this encounter [facility] note* Diagnosis Attention deficit disorder (ADD) without hyperactivity documented in this encounter [facility] note* Diagnosis Headache, worsening- Primary Headache Situational depression Adjustment disorder with depressed mood Situational anxiety Other anxiety states Attention deficit disorder (ADD) without hyperactivity Other migraine without status migrainosus, not intractable Subclinical hypothyroidism Other specified acquired hypothyroidism Fatigue, unspecified type Vitamin D deficiency Unspecified vitamin D deficiency Iron deficiency Iron deficiency anemia, unspecified Hyperlipidemia, mixed Mixed hyperlipidemia Perimenopausal Symptomatic menopausal or female climacteric states Hyperglycemia Other abnormal glucose documented in this encounter [facility] for referral (narrative)* Diagnostic Procedure Only (Routine) - New Request Specialty Diagnoses / Procedures Referred By Contac t Referred To Contact [facility] Diagnoses Encounter for screening mammogram for breast cancer Procedures WYATT SCREENING W KEREN SCREENING DIGITAL BREAST TOMOSYNTHESIS BI SCREENING MAMMOGRAPHY BI 2-VIEW BREAST INC Abel Sloan MD [address] [place] [address] [facility] [address] [place] [id number] Referral ID Status Reason Start Date Expiration Date Visits Requested Visits Authorized [id number] New Request Auto-Generat ed Referral 01/01/2025 1 1 [facility] for referral (narrative)* Diagnostic Procedure Only (Routine) - Closed Specialty Diagnoses / Procedures Referred By Blaise perez Referred To Contact [facility] Diagnoses Encounter for screening mammogram for breast cancer Procedures WYATT SCREENING W KEREN SCREENING DIGITAL BREAST TOMOSYNTHESIS BI SCREENING MAMMOGRAPHY BI 2-VIEW BREAST INC CAD Abel Chou MD [address] [place] [address] [facility] [address] [place] [address] Referral ID Status Reason Start Date Expiration Date V isits Requested Visits Authorized [id number] Closed Auto-Generate d Referral 12/03/2023 01/01/2025 1 1 [facility] for referral (narrative)* Diagnostic Procedure Only (Routine) - New Request Specialty Diagnoses / Procedures Referred By Blaise perez Referred To Contact [facility] Diagnoses Abnormal mammogram Procedures US BREAST LTD LEFT US BREAST UNI REAL TIME WITH IMAGE LIMITED Abel Chou MD [address] [place] [address] [facility] [address] [place] [address] Referral ID Status Reason Start Date Expiration Date Visits Requested Visits Authorized [id number] New Request Auto-Generat ed Referral 03/18/2024 04/17/2025 1 1 * Diagnostic Procedure Only (Routine) - New Request Specialty Diagnoses / Procedures Referred By Blaise perez Referred To Contact [facility] Diagnoses Abnormal mammogram Procedures WYATT DIAGNOSTIC LEFT DIAGNOSTIC MAMMOGRAPHY COMPUTER-AIDED DETCJ UNI Abel Chou MD [address] [place] [address] [facility] [address] [place] [address] Referral ID Status Reason Start Date Expiration Date Visits Requested Visits Authorized [id number] New Request Auto-Generat ed Referral 03/18/2024 04/17/2025 [address] [facility] for visit Narrative* Diagnostic Procedure Only (Routine) - Closed Specialty Diagnoses / Procedures Referred By Blaise perez Referred To Contact [facility] Diagnoses Encounter for screening mammogram for breast cancer Procedures WYATT SCREENING W KEREN SCREENING DIGITAL BREAST TOMOSYNTHESIS BI SCREENING MAMMOGRAPHY BI 2-VIEW BREAST INC Abel Sloan MD [address] [place] [address] [facility] [address] [place] [address] Referral ID Status Reason Start Date Expiration Date V isits Requested Visits Authorized [id number] Closed Auto-Generate d Referral 12/03/2023 01/01/2025 1 1 [facility] Advance Directives No Advanced Directives Records FoundDocuments on File Type Date Recorded Patient Primary Products Inspectors Expl anation Advance Directive(s) 05/15/2021 3:57 PM Summary Purpose Family History No Family History Records FoundNo Family History Records Found Reason for Referral Specialty Diagnoses / Procedures Referred By Blaise perez Referred To Contact [facility] Diagnoses Pelvic and perineal pain Hydrosalpinx Procedures MRI PELVIS WO/W IVCON MRI PELVIS W/WO CONTRAST Narciso Hickey, MATCH MARKER.BOWLING ALLEY OPERATOR [address] [place] [address] [place] [address] Referral ID Status Reason Start Date Expiration Date V isits Requested Visits Authorized [id number] Closed Auto-Generate d Referral 01/05/2021 02/19/2021 1 1 Specialty Diagnoses / Procedures Referred By Blaise perez Referred To Contact Diagnoses Hypersomnolence Fatigue, unspecified type Impaired concentration Ketan Moffett, DO [address] [place] [address] Referral ID Status Reason Start Date Expiration Date Visits Re quested Visits Authorized [id number] Closed 1 1 Specialty Diagnoses / Procedures Referred By Blaise perez Referred To [facility] Diagnoses Snoring Hypersomnolence Fatigue, unspecified type Procedures HOME SLEEP APNEA TEST (HSAT) SLEEP STD AIRFLOW HRT RATE&O2 SAT EFFORT UNATT Ketan Moffett, DO [address] [place] [address] [facility] [address] [place] [address] Referral ID Status Reason Start Date Expiration Date Visits Requested Visits Authorized [id number] Authorized Auto-Generat ed Referral 01/21/2023 01/21/2024 1 1 Specialty Diagnoses / Procedures Referred By Contac t Referred To Contact Diagnoses Impaired concentration Ketan Moffett, DO [address] [place] [address] Referral ID Status Reason Start Date Expiration Date Visits Re quested Visits Authorized [id number] Closed 1 1 Specialty Diagnoses / Procedures Referred By Contac t Referred To Contact Diagnoses Attention deficit disorder (ADD) without hyperactivity Ketan Moffett, DO [address] [place] [address] Referral ID Status Reason Start Date Expiration Date Visits Re quested Visits Authorized [id number] Closed 1 1 Referral ID Status Reason Start Date Expiration Date Visits Re quested Visits Authorized [id number] Closed 1 1 Specialty Diagnoses / Procedures Referred By Contac t Referred To Contact CT IMAGING Diagnoses Headache behind the eyes Procedures CT BRAIN WO IVCON CT HEAD/BRAIN W/O CONTRAST MATERIAL Ketan Moffett, DO [address] [place] [address] [place] [address] Referral ID Status Reason Start Date Expiration Date Visits Requested Visits Authorized [id number] New Request Auto-Generat ed Referral 01/09/2025 1 1 Referral ID Status Reason Start Date Expiration Date Visits Re quested Visits Authorized [id number] Closed 1 1 Referral ID Status Reason Start Date Expiration Date Visits Re quested Visits Authorized [id number] Closed 1 1 Specialty Diagnoses / Procedures Referred By Contac t Referred To Contact Ophthalmology Diagnoses Headache behind the eyes Procedures CONSULT TO OPHTHALMOLOGY OFFICE/OUTPATIENT NEW HIGH MDM 60 MINUTES Ketan Moffett, DO [address] [place] [address] Referral ID Status Reason Start Date Expiration Date V isits Requested Visits Authorized [id number] Closed PCP Requested Referral 12/11/2023 12/10/2024 1 1 Referral ID Status Reason Start Date Expiration Date Visits Re quested Visits Authorized [id number] Closed 1 1 Additional Source Comments Source Comments (unrecognize d section and content) In the event this informatio n is protected by the Federal Confidentiality of Alcohol and Drug Abuse Patient Records regulations: The Federal rules restrict any use of the information to criminally investigate or prosecute any alcohol or drug abuse patient.[facility] the event this information is protected by the Federal Confidentiality of Alcohol and Drug Abuse Patient Records regulations: The Federal rules restrict any use of the information to criminally investigate or prosecute any alcohol or drug abuse patient.[facility] the event this information is protected by the Federal Confidentiality of Alcohol and Drug Abuse Patient Records regulations: The Federal rules restrict any use of the information to criminally investigate or prosecute any alcohol or drug abuse patient.[facility] the event this information is protected by the Federal Confidentiality of Alcohol and Drug Abuse Patient Records regulations: The Federal rules restrict any use of the information to criminally investigate or prosecute any alcohol or drug abuse patient.[facility] the event this information is protected by the Federal Confidentiality of Alcohol and Drug Abuse Patient Records regulations: The Federal rules restrict any use of the information to criminally investigate or prosecute any alcohol or drug abuse patient.[facility] the event this information is protected by the Federal Confidentiality of Alcohol and Drug Abuse Patient Records regulations: The Federal rules restrict any use of the information to criminally investigate or prosecute any alcohol or drug abuse patient.[facility] the event this information is protected by the Federal Confidentiality of Alcohol and Drug Abuse Patient Records regulations: The Federal rules restrict any use of the information to criminally investigate or prosecute any alcohol or drug abuse patient.[facility] the event this information is protected by the Federal Confidentiality of Alcohol and Drug Abuse Patient Records regulations: The Federal rules restrict any use of the information to criminally investigate or prosecute any alcohol or drug abuse patient.[facility] the event this information is protected by the Federal Confidentiality of Alcohol and Drug Abuse Patient Records regulations: The Federal rules restrict any use of the information to criminally investigate or prosecute any alcohol or drug abuse patient.[facility] the event this information is protected by the Federal Confidentiality of Alcohol and Drug Abuse Patient Records regulations: The Federal rules restrict any use of the information to criminally investigate or prosecute any alcohol or drug abuse patient.[facility] the event this information is protected by the Federal Confidentiality of Alcohol and Drug Abuse Patient Records regulations: The Federal rules restrict any use of the information to criminally investigate or prosecute any alcohol or drug abuse patient.[facility] the event this information is protected by the Federal Confidentiality of Alcohol and Drug Abuse Patient Records regulations: The Federal rules restrict any use of the information to criminally investigate or prosecute any alcohol or drug abuse patient.[facility] the event this information is protected by the Federal Confidentiality of Alcohol and Drug Abuse Patient Records regulations: The Federal rules restrict any use of the information to criminally investigate or prosecute any alcohol or drug abuse patient.[facility] the event this information is protected by the Federal Confidentiality of Alcohol and Drug Abuse Patient Records regulations: The Federal rules restrict any use of the information to criminally investigate or prosecute any alcohol or drug abuse patient.[facility] the event this information is protected by the Federal Confidentiality of Alcohol and Drug Abuse Patient Records regulations: The Federal rules restrict any use of the information to criminally investigate or prosecute any alcohol or drug abuse patient.[facility] the event this information is protected by the Federal Confidentiality of Alcohol and Drug Abuse Patient Records regulations: The Federal rules restrict any use of the information to criminally investigate or prosecute any alcohol or drug abuse patient.[facility] the event this information is protected by the Federal Confidentiality of Alcohol and Drug Abuse Patient Records regulations: The Federal rules restrict any use of the information to criminally investigate or prosecute any alcohol or drug abuse patient.[facility] the event this information is protected by the Federal Confidentiality of Alcohol and Drug Abuse Patient Records regulations: The Federal rules restrict any use of the information to criminally investigate or prosecute any alcohol or drug abuse patient.[facility] the event this information is protected by the Federal Confidentiality of Alcohol and Drug Abuse Patient Records regulations: The Federal rules restrict any use of the information to criminally investigate or prosecute any alcohol or drug abuse patient.[facility] the event this information is protected by the Federal Confidentiality of Alcohol and Drug Abuse Patient Records regulations: The Federal rules restrict any use of the information to criminally investigate or prosecute any alcohol or drug abuse patient.[facility] the event this information is protected by the Federal Confidentiality of Alcohol and Drug Abuse Patient Records regulations: The Federal rules restrict any use of the information to criminally investigate or prosecute any alcohol or drug abuse patient.[facility] the event this information is protected by the Federal Confidentiality of Alcohol and Drug Abuse Patient Records regulations: The Federal rules restrict any use of the information to criminally investigate or prosecute any alcohol or drug abuse patient.[facility] the event this information is protected by the Federal Confidentiality of Alcohol and Drug Abuse Patient Records regulations: The Federal rules restrict any use of the information to criminally investigate or prosecute any alcohol or drug abuse patient.[facility] the event this information is protected by the Federal Confidentiality of Alcohol and Drug Abuse Patient Records regulations: The Federal rules restrict any use of the information to criminally investigate or prosecute any alcohol or drug abuse patient.[facility] the event this information is protected by the Federal Confidentiality of Alcohol and Drug Abuse Patient Records regulations: The Federal rules restrict any use of the information to criminally investigate or prosecute any alcohol or drug abuse patient.[facility] the event this information is protected by the Federal Confidentiality of Alcohol and Drug Abuse Patient Records regulations: The Federal rules restrict any use of the information to criminally investigate or prosecute any alcohol or drug abuse patient.[facility] the event this information is protected by the Federal Confidentiality of Alcohol and Drug Abuse Patient Records regulations: The Federal rules restrict any use of the information to criminally investigate or prosecute any alcohol or drug abuse patient.[facility] the event this information is protected by the Federal Confidentiality of Alcohol and Drug Abuse Patient Records regulations: The Federal rules restrict any use of the information to criminally investigate or prosecute any alcohol or drug abuse patient.[facility] the event this information is protected by the Federal Confidentiality of Alcohol and Drug Abuse Patient Records regulations: The Federal rules restrict any use of the information to criminally investigate or prosecute any alcohol or drug abuse patient.[facility] the event this information is protected by the Federal Confidentiality of Alcohol and Drug Abuse Patient Records regulations: The Federal rules restrict any use of the information to criminally investigate or prosecute any alcohol or drug abuse patient.[facility] the event this information is protected by the Federal Confidentiality of Alcohol and Drug Abuse Patient Records regulations: The Federal rules restrict any use of the information to criminally investigate or prosecute any alcohol or drug abuse patient.[facility] the event this information is protected by the Federal Confidentiality of Alcohol and Drug Abuse Patient Records regulations: The Federal rules restrict any use of the information to criminally investigate or prosecute any alcohol or drug abuse patient.[facility] the event this information is protected by the Federal Confidentiality of Alcohol and Drug Abuse Patient Records regulations: The Federal rules restrict any use of the information to criminally investigate or prosecute any alcohol or drug abuse patient.[facility] the event this information is protected by the Federal Confidentiality of Alcohol and Drug Abuse Patient Records regulations: The Federal rules restrict any use of the information to criminally investigate or prosecute any alcohol or drug abuse patient.[facility] the event this information is protected by the Federal Confidentiality of Alcohol and Drug Abuse Patient Records regulations: The Federal rules restrict any use of the information to criminally investigate or prosecute any alcohol or drug abuse patient.[facility] the event this information is protected by the Federal Confidentiality of Alcohol and Drug Abuse Patient Records regulations: The Federal rules restrict any use of the information to criminally investigate or prosecute any alcohol or drug abuse patient.[facility] the event this information is protected by the Federal Confidentiality of Alcohol and Drug Abuse Patient Records regulations: The Federal rules restrict any use of the information to criminally investigate or prosecute any alcohol or drug abuse patient.[facility] the event this information is protected by the Federal Confidentiality of Alcohol and Drug Abuse Patient Records regulations: The Federal rules restrict any use of the information to criminally investigate or prosecute any alcohol or drug abuse patient.[facility] the event this information is protected by the Federal Confidentiality of Alcohol and Drug Abuse Patient Records regulations: The Federal rules restrict any use of the information to criminally investigate or prosecute any alcohol or drug abuse patient.[facility] the event this information is protected by the Federal Confidentiality of Alcohol and Drug Abuse Patient Records regulations: The Federal rules restrict any use of the information to criminally investigate or prosecute any alcohol or drug abuse patient.[facility] Reason for Visit (unrecogniz ed section and content) Reason Onset Date Comments Pre-Op Teaching 05/22/2021 Reason Comments Procedure Reason Comments Pre-Op Visit Specialty Diagnoses / Procedures Referred By Blaise perez Referred To Contact ANESTHESIOLOGY Diagnoses PRE OP KATTY WIGGINS Procedures COMPLETE PACC Easton Amin MD [address] [place] [address] , Pacc Main [address] [place] [id number] Referral ID Status Reason Start Date Expiration Date V isits Requested Visits Authorized [id number] Pending Review 05/23/2021 08/21/2021 1 1 Reason Comments Post-Op Visit Reason Onset Date Comments Refill Request 06/28/2021 Reason Comments Post Op Reason Onset Date Comments Yearly Exam Gardasil Injection 10/08/2021 Reason Onset Date Comments Gardasil Injection 12/09/2021 Reason Onset Date Comments Gardasil Injection 04/11/2022 Reason Comments Follow Up 2 months Reason Comments Sleep Problem Has gotten worse in the last 3 months. Has trouble falling asleep, staying asleep and is tired all the time. Reason Comments Fatigue Reason Comments Yearly Exam Reason Comments Results Reason Comments Radiology MRI Specialty Diagnoses / Procedures Referred By Contac t Referred To Contact [facility] IMAG[facility] Diagnoses Pelvic and perineal pain Hydrosalpinx Procedures MRI PELVIS WO/W IVCON MRI PELVIS W/WO CONTRAST Narciso Hickey APRN.BOWLING ALLEY OPERATOR [address] [place] [address] [place] [address] Referral ID Status Reason Start Date Expiration Date V isits Requested Visits Authorized [id number] Closed Auto-Generate d Referral 01/05/2021 02/19/2021 1 1 Reason Onset Date Comments Refill Request 12/30/2022 Reason Onset Date Comments Follow Up Immunizations 01/21/2023 Flu vaccination Reason Comments Yearly Exam Reason Onset Date Comments Refill Request 07/08/2023 Reason Comments F/U 3 Month Reason Onset Date Comments Refill Request 10/15/2023 Reason Onset Date Comments Well Woman Immunizations 12/03/2023 Flu vaccination Reason Comments Headaches Specialty Diagnoses / Procedures Referred By Contac t Referred To Contact Ophthalmology Diagnoses Headache behind the eyes Procedures CONSULT TO OPHTHALMOLOGY OFFICE/OUTPATIENT NEW HIGH MDM 60 MINUTES Ketan Moffett L, DO [address] [place] [address] Referral ID Status Reason Start Date Expiration Date V isits Requested Visits Authorized [id number] Closed PCP Requested Referral 12/11/2023 12/10/2024 1 1 Reason Comments Follow Up 6 weeks Reason Comments PA for [facility] of [facility] Reason Onset Date Comments Refill Request 01/18/2024 Reason Onset Date Comments Refill Request 03/09/2024 Reason Onset Date Comments Refill Request 03/31/2024 Reason Onset Date Comments Refill Request 05/05/2024 Reason Comments Radiology US Specialty Diagnoses / Procedures Referred By Contac t Referred To Contact [facility] Diagnoses Abnormal mammogram Procedures US BREAST LTD LEFT US BREAST UNI REAL TIME WITH IMAGE LIMITED Abel Chou MD [address] [place] [address] Phone: tel: fax: [facility] [address] [place] [address] Referral ID Status Reason Start Date Expiration Date V isits Requested Visits Authorized [id number] Closed Auto-Generate d Referral 03/18/2024 04/17/2025 1 1 Reason Onset Date Comments Refill Request 07/04/2024 Medication Problem 07/04/2024 Reason Comments Follow Up [facility] Care Teams (unrecognized sec tion and content) Laboratory Tech Relationship Specialty Start Date End Date Ketan Moffett, DO [address] [place] [address] PCP - General Family Practice 12/02/16 Laboratory Tech Relationship Specialty Start Date End Date Ketan Moffett, DO [address] [place] [address] PCP - General Family Practice 12/02/16 Laboratory Tech Relationship Specialty Start Date End Date Ketan Moffett DO [address] [place] [address] PCP - General Family Practice 12/02/16 Laboratory Tech Relationship Specialty Start Date End Date Ketan Moffett DO [address] [place] [address] PCP - General Family Practice 12/02/16 Laboratory Tech Relationship Specialty Start Date End Date Ketan Moffett, DO [address] [place] [address] PCP - General Family Practice 12/02/16 Laboratory Tech Relationship Specialty Start Date End Date Ketan Moffett, DO [address] [place] [address] PCP - General Family Practice 12/02/16 Laboratory Tech Relationship Specialty Start Date End Date Ketan Moffett, DO [address] [place] [address] PCP - General Family Practice 12/02/16 Laboratory Tech Relationship Specialty Start Date End Date Ketan Moffett, DO [address] [place] [address] PCP - General Family Medicine 12/02/16 Laboratory Tech Relationship Specialty Start Date End Date Ketan Moffett DO [address] [place] [address] PCP - General Family Medicine 12/02/16 Laboratory Tech Relationship Specialty Start Date End Date Ketan Moffett DO [address] [place] [address] PCP - General Family Medicine 12/02/16 Laboratory Tech Relationship Specialty Start Date End Date Ketan Moffett DO [address] [place] [address] PCP - General Family Medicine 12/02/16 Laboratory Tech Relationship Specialty Start Date End Date Ketan Moffett DO [address] [place] [address] PCP - General Family Medicine 12/02/16 Laboratory Tech Relationship Specialty Start Date End Date Ketan Moffett DO [address] [place] [address] PCP - General Family Medicine 12/02/16 Laboratory Tech Relationship Specialty Start Date End Date Ketan Moffett DO [address] [place] [address] PCP - General Family Medicine 12/02/16 Laboratory Tech Relationship Specialty Start Date End Date Ketan Moffett DO [address] [place] [address] PCP - General Family Medicine 12/02/16 Laboratory Tech Relationship Specialty Start Date End Date Ketan Moffett DO [address] [place] [address] PCP - General Family Medicine 12/02/16 Laboratory Tech Relationship Specialty Start Date End Date Ketan Moffett DO [address] [facility] [place] [address] PCP - General Family Medicine 12/02/16 Laboratory Tech Relationship Specialty Start Date End Date Ketan Moffett DO [address] [facility] [place] [address] PCP - General Family Medicine 12/02/16 Laboratory Tech Relationship Specialty Start Date End Date Ketan Moffett DO [address] [facility] [place] [address] PCP - General Family Medicine 12/02/16 Laboratory Tech Relationship Specialty Start Date End Date Ketan Moffett DO [address] [facility] [place] [address] PCP - General Family Medicine 12/02/16 Laboratory Tech Relationship Specialty Start Date End Date Keatn Moffett DO [address] [facility] [place] [place] [address] PCP - General Family Medicine 12/02/16 Laboratory Tech Relationship Specialty Start Date End Date Ketan Moffett DO [address] [facility] [place] [place] [address] PCP - General Family Medicine 12/02/16 Laboratory Tech Relationship Specialty Start Date End Date Ketan Moffett DO [address] [facility] [place] [place] [address] PCP - General Family Medicine 12/02/16 Laboratory Tech Relationship Specialty Start Date End Date Ketan Moffett DO [address] [facility] [place] [place] [address] PCP - General Family Medicine 12/02/16 Laboratory Tech Relationship Specialty Start Date End Date Ketan Moffett DO [address] [facility] [place] [place] [address] PCP - General Family Medicine 12/02/16 Laboratory Tech Relationship Specialty Start Date End Date Ketan Moffett DO [address] [facility] [place] [place] [address] PCP - General Family Medicine 12/02/16 Laboratory Tech Relationship Specialty Start Date End Date Ketan Moffett DO [address] [facility] [place] [place] [address] PCP - General Family Medicine 12/02/16 Laboratory Tech Relationship Specialty Start Date End Date Ketan Moffett DO [address] [facility] [place] [place] [address] PCP - General Family Medicine 12/02/16 Laboratory Tech Relationship Specialty Start Date End Date Ketan Moffett DO [address] [facility] [place] [place] [address] PCP - General Family Medicine 12/02/16 Colleen Vizcaino, MATCH MARKER.BOWLING ALLEY OPERATOR [address] [facility] [place] [address] Senior Security Engineer Family Medicine 01/24/24 Narciso Hickey, PATY.BOWLING ALLEY OPERATOR [address] [facility] [place] [place] [address] Senior Security Engineer Family Medicine 01/24/24 Laboratory Tech Relationship Specialty Start Date End Date Ketan Moffett DO [address] [place] [address] PCP - General Family Medicine 12/02/16 Colleen Vizcaino, MATCH MARKER.BOWLING ALLEY OPERATOR [address] [place] [address] Senior Security Engineer Family Medicine 01/24/24 Narciso Hickey, MATCH MARKER.BOWLING ALLEY OPERATOR [address] [place] [address] Senior Security Engineer Family Medicine 01/24/24 Laboratory Tech Relationship Specialty Start Date End Date Ketan Moffett DO [address] [place] [address] PCP - General Family Medicine 12/02/16 Colleen Vizcaino, MATCH MARKER.BOWLING ALLEY OPERATOR [address] [place] [address] Senior Security Engineer Family Medicine 01/24/24 Narciso Hickey, MATCH MARKER.BOWLING ALLEY OPERATOR [address] [place] [address] [facility] 01/24/24 Laboratory Tech Relationship Specialty Start Date End Date Ketan Moffett DO [address] [place] [address] PCP - General Family Medicine 12/02/16 Colleen Vizcaino, MATCH MARKER.BOWLING ALLEY OPERATOR [address] [place] [address] Senior Security Engineer Family Medicine 01/24/24 Narciso Hickey, MATCH MARKER.BOWLING ALLEY OPERATOR [address] [place] [address] Senior Security Engineer Family Medicine 01/24/24 Laboratory Tech Relationship Specialty Start Date End Date Ketan Moffett DO [address] [facility] [place] [address] PCP - General Family Medicine 12/02/16 Colleen Vizcaino, MATCH MARKER.BOWLING ALLEY OPERATOR [address] [place] [address] Senior Security Engineer Family Medicine 01/24/24 Narciso Hickey, MATCH MARKER.BOWLING ALLEY OPERATOR [address] [place] [address] Senior Security Engineer Family Medicine 01/24/24 Laboratory Tech Relationship Specialty Start Date End Date Ketan Moffett DO [address] [place] [address] PCP - General Family Medicine 12/02/16 Narciso Hickey, MATCH MARKER.BOWLING ALLEY OPERATOR [address] [place] [address] Senior Security Engineer Family Medicine 01/24/24 Laboratory Tech Relationship Specialty Start Date End Date Ketan Moffett DO [address] [place] [address] PCP - General Family Medicine 12/02/16 Narciso Hickey, MATCH MARKER.BOWLING ALLEY OPERATOR [address] [place] [address] Senior Security Engineer Family Medicine 01/24/24 Laboratory Tech Relationship Specialty Start Date End Date Ketan Moffett DO [address] [place] [address] PCP - General Family Medicine 12/02/16 Narciso Hickey APRN.BOWLING ALLEY OPERATOR [address] [place] [address] Senior Security Engineer Family Medicine 01/24/24 INFORMATION SOURCE (unrecogn ized section and content) DATE CREATED AUTHOR 06/06/2021 [facility] DATE CREATED AUTHOR AUTHOR'S ORGANIZ ATION 07/05/2024 [facility] FOR RECORDS PERTAINING TO PATIENTS WHO ARE OR HAVE BEEN ENROLLED IN A CHEMICAL DEPENDENCY/SUBSTANCEABUSE PROGRAM, SOME INFORMATION MAY BE OMITTED. This clinical summary was aggregated from multiple sources. Caution should be exercised in using it in the provision of clinical care. This summary normalizes information from multiple sources, and as a consequence, information in this document may materially change the coding, format and clinical context of patient data. In addition, data may be omitted in some cases. CLINICAL DECISIONS SHOULD BE BASED ON THE PRIMARY CLINICAL RECORDS. [employer] provides no warranty or guarantee of the accuracy or completeness of information in this document.
--- NOTE | 2024-08-11 00:37 | EDS_ITS ---
HPI History of Present Illness Chief Complaint: Flank Pain Informant: patient and friend Narrative Narrative: Patient is a 39-year-old female with past medical history of anxiety and depression as well as ADHD. She states that she noticed some right sided flank/back pain earlier in the day without trauma or excessive activity. She states that this evening the pain went from mild ache to a sharp stabbing with significant increase in intensity. She states this occurred for no apparent reason as she was at rest when it happened. She denies any loss of bowel or bladder control or IV drug use. She denies any dysuria or concern for . She states that based on the worsening pain she presents for evaluation. [facility] Medical History (Updated 08/14/24 @ 03:[address] Ishmael Saravia, DO) Depression Anxiety Hyperlipemia ADHD Home Medications ?Medication ?Instructions ?Recorded ?Last Taken ?Type ammonium lactate 12 % lotion 1 applic topical BID 07/18 07/10 Unknown History cholecalciferol (vitamin D3) 50 50 mcg PO DAILY Unknown History mcg (2,000 unit) capsule (Vitamin D3) levonorgestrel 0.15 mg-ethinyl 1 tab PO DAILY 08/10/24 Unknown History estradiol 30 mcg tablets,3 mos pack(91) levothyroxine 50 mcg tablet 50 mcg PO DAILY disorder o f 08/10/24 Unknown History thyroid gland lisdexamfetamine 30 mg capsule 30 mg PO DAILY PRN 07/18 07/10 Unknown History (Vyvanse) magnesium gluconate 27 mg 27 mg PO DAILY 08/10/24 Unkn own History magnesium (500 mg) tablet riboflavin (vitamin B2) 100 mg 400 mg PO DAILY 5 Unknown History tablet (Vitamin B-2) rizatriptan 10 mg disintegrating 10 mg PO Q2H 08/10/24 Unknown History tablet sertraline 50 mg tablet 50 mg PO QPM 08/10/24 Unknow n History Allergy/AdvReac Type Severity Reaction Status Date / Time No Known Allergies Allergy Verified 08/10/24 23:02 Social History Smoking Status: Never smoker [facility] ED Constitutional Constitutional ED: Denies chills or fever(s) ENT ENT ED: Denies sore throat Cardiovascular Cardiovascular: Denies chest pain Respiratory/Chest Respiratory/Chest: Denies cough or dyspnea Gastrointestinal Gastrointestinal: Reports abdominal pain and nausea; Denies diarrhea or vomiting Genitourinary Genitourinary ED: Denies dysuria or hematuria Musculoskeletal Musculoskeletal: Reports back pain Integumentary Denies rash Neurologic Neurologic: Denies headache(s) Psychiatric Psychiatric: Reports anxiety and depression Hematologic/Lymphatic Hematologic/Lymphatic: Denies easy bleeding or easy bruising EXAM Physical Exam Const Vital Signs: 08/10/24 23:02 08/11/24 00:14 Temperature 97.7 F L Temperature Source Oral Pulse Rate 81 66 Respiratory Rate 16 16 Blood Pressure 135/67 H 118/70 Blood Pressure Mean 89 86 Pulse Ox 100 100 Oxygen Delivery Method Room Air Room Air Positive well nourished and well developed General Appearance ED: well developed HEENT Reports moist mucous membranes HEENT Narrative: Normocephalic atraumatic Eyes PERRL and EOMs intact bilaterally General Eye ED: Negative for scleral icterus Neck supple Resp normal respiratory effort and clear to auscultation bilaterally Cardio regular rate and regular rhythm Rate: other Other Details: Regular rate and rhythm without murmurs rubs or gallops Radial and carotid pulses are equal and symmetric GI non-distended and no masses GI Narrative: Abdomen is soft and nondistended with normal active bowel sounds. Patient has mild pain with palpation in the right lateral abdomen without voluntary guarding or rigidity. No pulsatile mass or fluid wave Auscultation: normoactive bowel sounds Palpation: soft Back/Spine Back/Spine Narrative: There is mild right CVA pain noted Extremity normal to inspection Neuro oriented x3, CN's II-XII intact bilaterally and no sensory deficits noted Sensorium / Orientation: alert Motor Exam: strength 5/5 throughout Psych mental status grossly normal Skin no rashes or lesions noted and no wounds Skin Narrative: No overlying soft tissue changes to suggest trauma or infection MDM MDM MDM Narrative Medical decision making narrative: Patient arrived to ER complaining of sudden onset right sided back/flank pain without trauma or excessive activity. She denied any loss of bowel or bladder control or IV drug use going against cauda equina or epidural abscess. She states has been no recent injections or surgical procedures going against discitis. She denies dysuria going as UTI/pyelonephritis and test is negative going against a complication. With concern this is most likely kidney stone a noncontrast CT was obtained. This revealed no acute stone but her urine sample does show a large amount of red blood cells which be consi stent with a recently passed stone. Patient does have +1 bacteria but no white cells and this is nitrite negative and she denies dysuria therefore I do not feel this is a true UTI and is most likely normal diaz and there is no need for antibiotics. As the patient's had spontaneous resolution of her symptoms and CT scan shows no retained stone and there is no signs of acute kidney injury she is otherwise safe for discharge History & Record Review Discussion w/independent historian: Patient and Friend Lab Data Attestation: I reviewed the patient's lab results. Labs: Laboratory Results - last 24 hr 08/10/24 08/10/24 23:09 23:31 WBC 11.2 H RBC 4.33 Hgb 12.7 Hct 38.0 MCV 87.8 MCH 29.3 MCHC 33.4 RDW Std Deviation 45.5 H RDW Coeff of Leroy 14.2 Plt Count 340 MPV 8.8 Immature Gran % (Auto) 0.300 Neut % (Auto) 49.7 Lymph % (Auto) 40.2 [place] % (Auto) 8.4 Eos % (Auto) 0.6 Baso % (Auto) 0.8 Absolute Neuts (auto) 5.6 Absolute Lymphs (auto) 4.49 Nucleated RBC % 0 Sodium 140 Potassium 3.8 Chloride 105 Carbon Dioxide 20.9 L Anion Gap 14 BUN 16 Creatinine 0.94 Estim Creat Clear Calc 89.17 Est GFR (MDRD) Non-Af 79 BUN/Creatinine Ratio 17.3 Glucose 89 Calcium 8.9 Total Bilirubin 0.23 AST 18 ALT 12 Alkaline Phosphatase 71 Total Protein 6.9 Albumin 3.8 Globulin 3.0 Albumin/Globulin Ratio 1.3 Serum , Qual NEGATIVE Urine Color Yellow Urine Clarity Clear Urine pH 5.0 Ur Specific Malone 1.030 Urine Protein 30 H Urine Glucose (UA) Normal Urine Ketones Negative Urine Occult Blood 250 H Urine Nitrite Negative Urine Bilirubin Negative Urine Urobilinogen Normal Ur Leukocyte Esterase Negative Urine RBC 25-50 SEEN Urine WBC 0 SEEN Ur Squamous Epith Cells 0 SEEN Urine Bacteria 1+ Urine Mucus 0 SEEN Radiography Diagnostic Testing: Clinical Impression(s) from Imaging Studies Abdomen/Pelvis CT 08/10/24 23:49 IMPRESSION: Mild diffuse thickening of the bladder suggestive of mild cystitis. Reading [facility] Discharge Plan Triage Chief Complaint: Flank Pain ED Provider: Ishmael Saravia Dx/Rx/DC Orders Clinical Impression: Acute flank pain, Hematuria, ADHD, Anxiety and depression Instructions: ED Kidney Stone, Passed Prescriptions: No Action levothyroxine 50 mcg tablet 50 mcg PO DAILY sertraline 50 mg tablet 50 mg PO QPM lisdexamfetamine [Vyvanse] 30 mg capsule 30 mg PO DAILY PRN riboflavin (vitamin B2) [Vitamin B-2] 100 mg tablet 400 mg PO DAILY rizatriptan 10 mg tablet,disintegrating 10 mg PO Q2H magnesium gluconate 27 mg magnesium (500 mg) tablet 27 mg PO DAILY cholecalciferol (vitamin D3) [Vitamin D3] 50 mcg (2,000 unit) capsule 50 mcg PO DAILY ammonium lactate 12 % lotion 1 applic topical BID levonorgestrel-ethinyl estrad 0.15 mg-30 mcg (91) tablets,dose pack,3 month 1 tab PO DAILY Primary Care Provider: Ketan Moffett Referrals: Ketan Moffett DO [Primary Care Provider] - Activity Restrictions/Additional Instructions: Your CT scan showed no sign of kidney stone or secondary infection. The fact that your urine has a large amount of blood and your symptoms spontaneously resolved indicate that you passed your stone. CT scan shows no further stones within your kidneys so you should be pain-free. If symptoms return or you have any further concerns please return to the ER for repeat evaluation Print Language: Kinyarwanda Disposition Disposition: Home, Self Care Discharge Date/Time: 08/11/24 00:43
[2024-08-11 00:43] VITALS: BP 118/76; PULSE 67; RESP 16; TEMP 36.8; O2SAT 99
== END 2024-08-11 00:43 | disposition home or self-care (01) ==
PROVIDERS: Emergency Provider Emergency Medicine; PCP Student in an Organized Health Care Education/Training Program; Visit Provider Emergency Medicine
DX: R10.9 Unspecified abdominal pain (principal); F90.9 Attention-deficit hyperactivity disorder, unspecified type; R31.9 Hematuria, unspecified; F32.A Depression, unspecified; F41.9 Anxiety disorder, unspecified; Z79.899 Other long term (current) drug therapy
CPT/HCPCS: 74176; 80053; 81001; 84703; 85025; 99283; A4216

== ENCOUNTER 2024-08-16 16:05 | Emergency (ER) | payer MEDICAID, SELFPAY ==
[2024-08-16 16:05] VITALS: BP 133/99; PULSE 64; RESP 16; TEMP 36.3; O2SAT 100; BMI 30.4
--- NOTE | 2024-08-16 16:49 | CT_ITS ---
PROCEDURE: ABDOMEN/PELVIS WITHOUT CONT 08/16/2024 REASON FOR EXAM: PAIN TECHNIQUE: ABDOMEN/PELVIS WITHOUT CONT Noncontrast technique limits evaluation of the abdominal and pelvic viscera. Coronal and Sagittal reconstruction series were provided. One or more dose reduction techniques were used (e.g., Automated exposure control, adjustment of the mA and/or kV according to patient size, use of iterative reconstruction technique). RADIATION DOSE SUMMARY: CTDlvol: 10.61 mGy DLP: 69.71 mGycm COMPARISON: 08/11/2024. FINDINGS: The lung bases are clear. The peripheral soft tissues are unremarkable. Normal caliber abdominal aorta. The liver, gallbladder, pancreas, spleen, and adrenals are unremarkable. Right ureterovesicular junction 2 mm calculus with moderate upstream hydroureteronephrosis. The reproductive organs are unremarkable. Normal caliber large and small bowel. CT/Abdomen/Pelvis without Cont IMPRESSION: Right ureterovesicular junction 2 mm calculus with moderate upstream hydrourete ronephrosis. Reading Location: [id number]
[2024-08-16] MEDS: 0.9% Normal Saline (1000mL) 1,000 ML 999 ML IV (16:55)
[2024-08-16] MEDS: Ketorolac 30 MG/ML Syringe IV (16:55)
--- NOTE | 2024-08-16 17:07 | ED.VIS.FEGU ---
HPI HPI - Female History of Present Illness Chief Complaint: Flank Pain Narrative Narrative: Chief complaint and HPI: Right flank pain. History taken by patient as well as chart review. 39-year-old female with past medical history of hypothyroidism, anxiety, depression presents for evaluation of right flank pain. Onset of symptoms approximately 2 PM. Described as sharp. Associated symptom is nausea. Patient had similar symptoms on 08/11 in which she was seen in our emergency department. She was diagnosed passed urolithiasis and discharged home. Denies . Denies fever, shortness of breath, chest pain, diarrhea, constipation, dysuria, hematuria. Review of systems: See HPI Medications: As listed on the chart Allergies: As listed on the chart PFSH: Per chart Vital signs: As listed on the chart. Reviewed. Physical exam: Gen: A&O x3, NAD but uncomfortable secondary to pain Head: Normocephalic, atraumatic Eyes: No sclera icterus, conjunctiva clear ENT: Moist mucous membranes Neck: Trachea midline, No JVD CV: RRR, no murmurs, no peripheral edema Resp: Lungs CTA BL, no w/r/c GI: Abd soft, non-distended, tender to palpation of the right flank, no r/r/g : No CVA tenderness Musc: Full ROM, no deformity Skin: Warm, dry Neuro: Alert, oriented, grossly intact, sensation intact Psych: Cooperative, appropriate mood and affect [facility] Medical History (Updated 08/16/24 @ 21:[address] Jin Zhu-Marine, DO) Depression Anxiety Hyperlipemia ADHD Home Medications ?Medication ?Instructions ?Recorded ?Last Taken ?Type ammonium lactate 12 % lotion 1 applic topical BID 08/10/24 Unknown History cholecalciferol (vitamin D3) 50 50 mcg PO DAILY 08/10/24 Unknown History mcg (2,000 unit) capsule (Vitamin D3) levonorgestrel 0.15 mg-ethinyl 1 tab PO DAILY 08/10/24 Unknown History estradiol 30 mcg tablets,3 mos pack(91) levothyroxine 50 mcg tablet 50 mcg PO DAILY disorder of 08/10/24 Unknown History thyroid gland lisdexamfetamine 30 mg capsule 30 mg PO DAILY PRN 08/10/24 Unknown History (Vyvfrede) magnesium gluconate 27 mg 27 mg PO DAILY 08/10/24 Unknown History magnesium (500 mg) tablet riboflavin (vitamin B2) 100 mg 400 mg PO DAILY 08/10/24 Unknown History tablet (Vitamin B-2) rizatriptan 10 mg disintegrating 10 mg PO Q2H 08/10/24 Unknown History tablet sertraline 50 mg tablet 50 mg PO QPM 08/10/24 Unknown History levofloxacin 750 mg tablet 750 mg PO DAILY 7 days #7 tabs 08/16/24 Unknown Rx ondansetron 4 mg disintegrating 4 mg PO Q8H PRN PRN Nausea #10 tabs 08/16/24 Unknown Rx tablet oxycodone-acetaminophen 5 mg-325 1 tab PO Q8H PRN pain 3 days #12 08/16/24 Unknown Rx mg tablet (Percocet) tabs tamsulosin 0.4 mg capsule (Flomax) 0.4 mg PO DAILY 14 days #14 caps 08/16/24 Unknown Rx Allergy/AdvReac Type Severity Reaction Status Date / Time No Known Allergies Allergy Verified 08/16/24 16:07 Social History Smoking Status: Never smoker EXAM Physical Exam Const Vital Signs: 08/16/24 16:05 08/16/24 17:08 08/16/24 18:00 Temperature 97.3 F L Temperature Source Oral Pulse Rate 64 64 Respiratory Rate 16 14 Blood Pressure 133/99 H 136/78 H 149/61 H Blood Pressure Mean 110 97 90 Pulse Ox 100 98 Oxygen Delivery Method Room Air Room Air 08/16/24 19:00 08/16/24 20:12 08/16/24 21:15 Temperature 98.9 F 98.9 F Temperature Source Temporal Pulse Rate 78 66 63 Respiratory Rate 18 18 16 Blood Pressure 134/78 H 130/90 H 120/84 H Blood Pressure Mean 96 103 96 Pulse Ox 99 99 99 Oxygen Delivery Method Room Air Room Air MDM MDM MDM Narrative Medical decision making narrative: 39-year-old female with past medical history of hypothyroidism, anxiety, depression presents for evaluation of right flank pain. Onset of symptoms approximately 2 PM. Described as sharp. Associated symptom is nausea. Patient had similar symptoms on 08/11 in which she was seen in our emergency department. She was diagnosed with passed urolithiasis and discharged home. Denies . Denies fever, shortness of breath, chest pain, diarrhea, constipation, dysuria, hematuria. Differential diagnosis includes but is not limited to urolithiasis, pyelonephritis, UTI, electrolyte abnormality, MENA. NS bolus, Zofran, Toradol ordered. Laboratory workup ordered including CT abdomen pelvis without contrast. CBC with mild leukocytosis 11.5. No anemia. Platelets unremarkable. BMP unremarkable without electrolyte abnormality or MENA. Serum negative. On reevaluation, patient still having abdominal pain. Morphine ordered. CT abdomen pelvis shows right ureterovesicular junction 2 mm calculus with moderate upstream hydroureteronephrosis. UA positive for UTI. Urine culture sent. IV Rocephin ordered. On reevaluation, patient states her pain is controlled. Urology is currently not on-call however I spoke with Dr. Hoffman about the patient as he was calling back for a personal patient for himself. He was willing to take consult. Plan is for discharge home. Follow-up in his office. Patient was updated of all the results and confirmed understanding of the plan. Prescription written for Zofran, Flomax, Levaquin, Percocet. Return precautions explained. She confirmed understanding of the plan. Patient stable to discharge home. Impression: 1. Right UVJ urolithiasis with moderate upstream hydroureteronephrosis 2. UTI Lab Data Labs: Laboratory Results - last 24 hr 08/16/24 08/16/24 16:45 18:46 WBC 11.5 H RBC 4.88 Hgb 14.6 Hct 44.1 MCV 90.4 MCH 29.9 MCHC 33.1 RDW Std Deviation 46.9 H RDW Coeff of Leroy 14.2 Plt Count 386 MPV 9.4 Immature Gran % (Auto) 0.400 Neut % (Auto) 69.7 Lymph % (Auto) 23.1 [place] % (Auto) 6.1 Eos % (Auto) 0.3 Baso % (Auto) 0.4 Absolute Neuts (auto) 8.0 H Absolute Lymphs (auto) 2.65 Nucleated RBC % 0 Sodium 139 Potassium 4.0 Chloride 103 Carbon Dioxide 22.6 Anion Gap 14 BUN 12 Creatinine 1.06 Estim Creat Clear Calc 77.72 Est GFR (MDRD) Non-Af 68 BUN/Creatinine Ratio 11.1 Glucose 115 H Calcium 9.3 Serum , Qual NEGATIVE Urine Color Yellow Urine Clarity Sl. Cloudy Urine pH 5.0 Ur Specific [place] 1.030 Urine Protein 30 H Urine Glucose (UA) Normal Urine Ketones 5 H Urine Occult Blood 25 H Urine Nitrite Negative Urine Bilirubin Negative Urine Urobilinogen Normal Ur Leukocyte Esterase 25 H Urine RBC 0-5 SEEN Urine WBC 0-5 SEEN Ur Squamous Epith Cells 0 SEEN Calcium Oxalate Crystal 2+ Urine Bacteria 1+ Hyaline Casts 0-5 SEEN Urine Mucus 1+ Radiography Diagnostic Testing: Clinical Impression(s) from Imaging Studies Abdomen/Pelvis CT 08/16/24 16:49 IMPRESSION: Right ureterovesicular junction 2 mm calculus with moderate upstream hydroureteronephrosis. Reading Location: [id number] Discharge Plan Triage Chief Complaint: Flank Pain ED Provider: Jin Adams Dx/Rx/DC Orders Clinical Impression: Urolithiasis, UTI (urinary tract infection) Instructions: UTIs, ED Kidney Stone with Pain Prescriptions: New levofloxacin 750 mg tablet 750 mg PO DAILY 7 Days Qty: 7 0RF ondansetron 4 mg tablet,disintegrating 4 mg PO Q8H PRN PRN (Reason: Nausea) Qty: 10 0RF tamsulosin [Flomax] 0.4 mg capsule 0.4 mg PO DAILY 14 Days Qty: 14 0RF oxycodone-acetaminophen [Percocet] 5-325 mg tablet 1 tab PO Q8H PRN (Reason: pain) 3 Days Qty: 12 0RF No Action levothyroxine 50 mcg tablet 50 mcg PO DAILY sertraline 50 mg tablet 50 mg PO QPM lisdexamfetamine [Vyvanse] 30 mg capsule 30 mg PO DAILY PRN riboflavin (vitamin B2) [Vitamin B-2] 100 mg tablet 400 mg PO DAILY rizatriptan 10 mg tablet,disintegrating 10 mg PO Q2H magnesium gluconate 27 mg magnesium (500 mg) tablet 27 mg PO DAILY cholecalciferol (vitamin D3) [Vitamin D3] 50 mcg (2,000 unit) capsule 50 mcg PO DAILY ammonium lactate 12 % lotion 1 applic topical BID levonorgestrel-ethinyl estrad 0.15 mg-30 mcg (91) tablets,dose pack,3 month 1 tab PO DAILY Primary Care Provider: Ketan Moffett Referrals: Ketan Moffett DO [Primary Care Provider] - 3-5 Days Palmer Mensah MD [Med Staff - Active Staff] - 3-5 Days Activity Restrictions/Additional Instructions: Follow-up with urology. Return back to the ED if symptoms change or worsen. Do not operate heavy machinery or drive while taking narcotics. Print Language: Maltese Disposition Disposition: Home, Self Care Discharge Date/Time: 08/16/24 21:35
[2024-08-16 17:08] VITALS: BP 136/78
[2024-08-16 17:39] LABS: Internal QC Validated? YES +Cl - CLEAR BKGD; Pregnancy, Serum, hCG Quali. NEGATIVE Negative; Record Kit Lot#, Serum Preg. 947241
[2024-08-16 17:48] LABS: Hematocrit 44.1 % (37-47); Hemoglobin 14.6 g/dL (12.0-15.0); Immature Granulocytes Count 0.050 X10^3/uL (0.0-0.0); Mean Corp Hgb Conc 33.1 g/dL (32-36); Mean Corpuscular Volume 90.4 fL (81-99); Mean Platelet Vol. 9.4 fl (6.2-12.0); NRBC Flagged by Analyzer 0 % (0-5); Platelet Count 386 K/mm3 (150-450); RBC Distribution Width CV 14.2 % (11.6-14.6); RBC Distribution Width SD 46.9 fl (35.1-43.9); Red Blood Count 4.88 M/mm3 (4.2-5.4); White Blood Count 11.5 K/mm3 (4.4-11.0)
[2024-08-16 18:00] VITALS: BP 149/61; PULSE 64; RESP 14; O2SAT 98
[2024-08-16 18:03] LABS: Anion Gap 14 (5-15); BUN 12 mg/dL (4-19); BUN/Creat Ratio 11.1 RATIO (10-20); Calcium,Total 9.3 mg/dL (7.6-11.0); Carbon Dioxide 22.6 mmol/L (21.0-32.0); Chloride 103 mmol/L (98-108); Estimated Creatinine Clearance 77.72 ml/min (50-250); Glucose 115 mg/dL (70-99); Potassium 4.0 mmol/L (3.3-5.1)
[2024-08-16 18:50] LABS: Squamous Epithelial Cells - UA 0 SEEN /hpf (5-10)
[2024-08-16 19:00] VITALS: BP 134/78; PULSE 78; RESP 18; TEMP 37.2; O2SAT 99
[2024-08-16 19:04] LABS: Color, Urine Yellow (Yellow); Glucose, Dipstick Normal (Normal); Ketone-Dipstick 5 mg/dl (Negative); Leukocyte Esterase-Dipstick 25 /ul (Negative); Nitrite-Dipstick Negative (Negative); Occult Blood-Urine 25 /ul (Negative); Protein-Dipstick 30 mg/dl (Negative); Specific Gravity, Urine 1.030 (1.002-1.030); Urine Bilirubin Dipstick Negative (Negative)
[2024-08-16 20:11] LABS: Red Blood Cells-Urine 0-5 SEEN /hpf (0-5)
[2024-08-16 20:12] VITALS: BP 130/90; PULSE 66; RESP 18; O2SAT 99
[2024-08-16 20:12] LABS: Calcium Oxalate Crystals Ur 2+ /hpf (<or=2+); Mucous, Urine 1+ /hpf (<or=2+)
[2024-08-16 21:15] VITALS: BP 120/84; PULSE 63; RESP 16; TEMP 37.2; O2SAT 99
== END 2024-08-16 21:35 | disposition home or self-care (01) ==
PROVIDERS: Emergency Provider Surgery; PCP Student in an Organized Health Care Education/Training Program; Visit Provider Surgery
DX: N13.6 Pyonephrosis (principal)
CPT/HCPCS: 74176; 80048; 81001; 84703; 85025; 87086; 87088; 96361; 96365; 96375; 99283; A4216; J2405